=== PATIENT | female | born 1990 | race Caucasian/White ===

== ENCOUNTER 2017-09-23 12:31 | Emergency (ER) | payer BC, MEDICAID ==
[~2017-09-23] VITALS: Ht 165.1 cm; Wt 72.6 kg
[2017-09-23] MEDS ORDERED: NS IV 1000 ML 1,000 ML ONE (12:36)
[2017-09-23] MEDS ORDERED: ONDANSETRON 4 MG/2 ML (SDV) Z0FRAN ONE (12:36)
[2017-09-23] MEDS ORDERED: NS IV 1000 ML 1,000 ML IV STA (12:37)
[2017-09-23] MEDS ORDERED: ONDANSETRON 4 MG/2 ML (SDV) Z0FRAN IVP ONE (12:45)
[2017-09-23 12:54] LABS: BASOPHILS % (AUTO) 0 % (0-10); EOSINOPHILS % (AUTO) 0 % (0-10); HEMATOCRIT 45 % (35-52); HEMOGLOBIN 15.6 G/DL (11.5-16.0); LYMPHOCYTES # (AUTO) 1.3 X 10^3 (1.0-4.0); LYMPHOCYTES % (AUTO) 13 % (12-44); MEAN CORPUSCULAR HEMOGLOBIN 30 PG (25-34); MEAN CORPUSCULAR HGB CONC 35 G/DL (32-36); MEAN CORPUSCULAR VOLUME 87 FL (80-99); MEAN PLATELET VOLUME 10.4 FL (7.4-10.4); MONOCYTES # (AUTO) 0.5 X 10^3 (0.0-1.0); MONOCYTES % (AUTO) 5 % (0-12); NEUTROPHILS # (AUTO) 8.2 X 10^3 (1.8-7.8); NEUTROPHILS % (AUTO) 81 % (42-75); PLATELET COUNT 243 10^3/uL (130-400); RED BLOOD COUNT 5.15 10^6/uL (4.35-5.85); RED CELL DISTRIBUTION WIDTH 12.6 % (10.0-14.5); WHITE BLOOD COUNT 10.1 10^3/uL (4.3-11.0)
[2017-09-23 13:08] LABS: ALANINE AMINOTRANSFERASE 20 U/L (0-55); ALBUMIN 4.7 GM/DL (3.2-4.5); ALKALINE PHOSPHATASE 65 U/L (40-136); BILIRUBIN,TOTAL 1.1 MG/DL (0.1-1.0); BUN/CREATININE RATIO 11; CALCIUM 9.8 MG/DL (8.5-10.1); CARBON DIOXIDE 16 MMOL/L (21-32); CHLORIDE 108 MMOL/L (98-107); CREATININE SERUM 1.04 MG/DL (0.60-1.30); GFR ESTIMATED > 60; GLUCOSE 134 MG/DL (70-105); POTASSIUM 3.1 MMOL/L (3.6-5.0); SODIUM 139 MMOL/L (135-145); TOTAL PROTEIN 7.6 GM/DL (6.4-8.2)
[2017-09-23] MEDS ORDERED: PROMETHAZINE INJ 25 MG/ML (PHENERGAN) AMP IVP STA (13:14)
[2017-09-23] MEDS ORDERED: KETOROLAC 30 MG/ML VIAL IVP STA (13:14)
[2017-09-23] MEDS ORDERED: diphenhydrAMINE 50 MG/ML INJ (BENADRYL) IV ONE (13:15)
[2017-09-23] MEDS ORDERED: LACTATED RINGERS 1,000 ML IV ONE (13:17)
--- NOTE | 2017-09-23 13:22 | ED Headache ---
General Chief Complaint: Head/Cervical Problems Stated Complaint: VOMITING,WHALEN/DEHYDRATED Nursing Triage Note: PT TO RM 10 PER WHEELCHAIR FROM CAR BY STAFF. PT STATED SHE HAD A SPINAL TAP ON FRIDAY AND HAS HAD A WHALEN, NAUSEA, VOMITTING SINCE. Nursing Sepsis Screen: No Definite Risk Source: patient, family Exam Limitations: no limitations History of Present Illness Date Seen by Provider: Sep 23, 2017 Time Seen by Provider: 12:38 Initial Comments Here with complaint of headache after getting spinal tap last Friday. States the headache started to his afterwards and has had it since. This is associated with nausea and vomiting. She was able to eat some last night but otherwise not eating well. Has not had anything to drink today due to nausea, vomiting and pain. She had talked with the doctors to have set her up for blood patch tomorrow but she states that she couldn't make it. They instructed her to come here for evaluation. She has been unable to take her migraine medicine due to the nausea and vomiting. Spinal tap was Test for MS. Timing/Duration: constant, other (4) Severity/Quality: moderate, severe, constant, pressure, throbbing Location: global Prior Headaches/Recent Trauma: occasional headaches Modifying Factors: worse with exposure to light, improves with rest Associated Symptoms: No confusion, No fever/chills, No loss of consciousness, nausea/vomiting, No nasal congestion, No nasal drainage, No numbness in legs/ feet, No seizures, No stiff neck, No vision changes, No weakness Allergies and Home Medications Allergies Coded Allergies: hydrocodone (Verified Allergy, Unknown, 09/23/17) sulfamethoxazole (Verified Allergy, Unknown, 09/23/17) trimethoprim (Verified Allergy, Unknown, 09/23/17) Home Medications Ondansetron 4 Mg Tab.rapdis, 4 MG PO Q6H PRN for NAUSEA/VOMITING Prescribed by: BRETT CHIN on 09/23/17 1527 Patient Home Medication List Home Medication List Reviewed: Yes Constitutional: see HPI, No chills, No fever Eyes: See HPI, Denies Blurred Vision, Pain Ears, Nose, Mouth, Throat: no symptoms reported Respiratory: no symptoms reported Cardiovascular: no symptoms reported Gastrointestinal: No abdominal pain, nausea, vomiting Genitourinary: no symptoms reported Musculoskeletal: see HPI, No back pain, No muscle pain Skin: No change in color, No lesions Psychiatric/Neurological: See HPI, Headache, Denies Weakness All Other Systems Reviewed Negative Unless Noted: Yes Past Dwvgiuq-Viiyfi-Vgqgxq Hx Patient Social History Alcohol Use: Denies Use Recreational Drug Use: No Smoking Status: Never a Smoker 2nd Hand Smoke Exposure: No Recent Foreign Travel: No Contact w/Someone Who Travel: No Recent Infectious Disease Expo: No Recent Hopitalizations: No Physical Abuse: No Sexual Abuse: No Seasonal Allergies Seasonal Allergies: No Surgeries History of Surgeries: No Respiratory History of Respiratory Disorde: No Cardiovascular History of Cardiac Disorders: No Neurological History of Neurological Disord: No Reproductive System : No (DEPO SHOT) Genitourinary History of Genitourinary Disor: No Gastrointestinal History of Gastrointestinal Di: No Musculoskeletal History of Musculoskeletal Dis: No Endocrine History of Endocrine Disorders: No HEENT History of HEENT Disorders: No Cancer History of Cancer: No Psychosocial History of Psychiatric Problem: No Suicide Risk Score: 0 Integumentary History of Skin or Integumenta: No Blood Transfusions History of Blood Disorders: No Reviewed Nursing Assessment Reviewed/Agree w Nursing PMH: Yes Family Medical History Significant Family History: No Pertinent Family Hx Physical Exam Vital Signs Vital Signs - First Documented 09/23/17 12:35 Temp 96.8 Pulse 111 Resp 22 B/P (MAP) 129/86 (100) Pulse Ox 99 O2 Delivery Room Air Capillary Refill : Less Than 3 Seconds General Appearance: WD/WN, no apparent distress HEENT: PERRL/EOMI, pharynx normal Neck: full range of motion, supple Cardiovascular: regular rate, rhythm, no murmur Respiratory: lungs clear, normal breath sounds Gastrointestinal: non tender, soft Back: normal inspection, no CVA tenderness, no vertebral tenderness Extremities: non-tender, normal inspection Psychiatric: alert, oriented x 3 Crainal Nerves: normal hearing, normal speech, PERRL Motor/Sensory: no motor deficit, no sensory deficit Skin: normal color, warm/dry Progress/Results/Core Measures Results/Orders Lab Results Laboratory Tests Test 09/23/17 12:35 09/23/17 15:12 Range/Units White Blood Count 10.1 4.3-11.0 10^3/uL Red Blood Count 5.15 4.35-5.85 10^6/uL Hemoglobin 15.6 11.5-16.0 G/DL Hematocrit 45 35-52 % Mean Corpuscular Volume 87 80-99 FL Mean Corpuscular Hemoglobin 30 25-34 PG Mean Corpuscular Hemoglobin Concent 35 32-36 G/DL Red Cell Distribution Width 12.6 10.0-14.5 % Platelet Count 243 130-400 10^3/uL Mean Platelet Volume 10.4 7.4-10.4 FL Neutrophils (%) (Auto) 81 H 42-75 % Lymphocytes (%) (Auto) 13 12-44 % Monocytes (%) (Auto) 5 0-12 % Eosinophils (%) (Auto) 0 0-10 % Basophils (%) (Auto) 0 0-10 % Neutrophils # (Auto) 8.2 H 1.8-7.8 X 10^3 Lymphocytes # (Auto) 1.3 1.0-4.0 X 10^3 Monocytes # (Auto) 0.5 0.0-1.0 X 10^3 Eosinophils # (Auto) 0.0 0.0-0.3 10^3/uL Basophils # (Auto) 0.0 0.0-0.1 10^3/uL Sodium Level 139 135-145 MMOL/L Potassium Level 3.1 L 3.6-5.0 MMOL/L Chloride Level 108 H 98-107 MMOL/L Carbon Dioxide Level 16 L 21-32 MMOL/L Anion Gap 15 H 5-14 MMOL/L Blood Urea Nitrogen 11 7-18 MG/DL Creatinine 1.04 0.60-1.30 MG/DL Estimat Glomerular Filtration Rate > 60 BUN/Creatinine Ratio 11 Glucose Level 134 H 70-105 MG/DL Calcium Level 9.8 8.5-10.1 MG/DL Total Bilirubin 1.1 H 0.1-1.0 MG/DL Aspartate Amino Transf (AST/SGOT) 21 5-34 U/L Alanine Aminotransferase (ALT/SGPT) 20 0-55 U/L Alkaline Phosphatase 65 40-136 U/L Total Protein 7.6 6.4-8.2 GM/DL Albumin 4.7 H 3.2-4.5 GM/DL Serum Test, Qualitative NEGATIVE NEGATIVE Urine Color YELLOW Urine Clarity SLIGHTLY CLOUDY Urine pH 8 5-9 Urine Specific [place] 1.010 L 1.016-1.022 Urine Protein NEGATIVE NEGATIVE Urine Glucose (UA) NEGATIVE NEGATIVE Urine Ketones 3+ H NEGATIVE Urine Nitrite NEGATIVE NEGATIVE Urine Bilirubin NEGATIVE NEGATIVE Urine Urobilinogen NORMAL NORMAL MG/DL Urine Leukocyte Esterase 2+ H NEGATIVE Urine RBC (Auto) 4+ H NEGATIVE Urine RBC NONE /HPF Urine WBC 2-5 /HPF Urine Squamous Epithelial Cells 25-50 H /HPF Urine Crystals NONE /LPF Urine Bacteria MODERATE H /HPF Urine Casts NONE /LPF Urine Mucus NEGATIVE /LPF Urine Culture Indicated NO My Orders Orders - BRETT CHIN MD Ondansetron Injection (Zofran Injectio (09/23/17 12:45) Ns Iv 1000 Ml (Sodium Chloride 0.9%) (09/23/17 12:37) Saline Lock/Iv-Start (09/23/17 12:37) Ondansetron Injection (Zofran Injectio (09/23/17 12:36) Ns Iv 1000 Ml (Sodium Chloride 0.9%) (09/23/17 12:36) Cbc With Automated Diff (09/23/17 12:38) Comprehensive Metabolic Panel (09/23/17 12:38) Ua Culture If Indicated (09/23/17 12:38) Hcg,Qualitative Serum (09/23/17 12:38) Ketorolac Injection (Toradol Injection) (09/23/17 13:14) Promethazine Injection (Phenergan Injec (09/23/17 13:14) Diphenhydramine Injection (Benadryl Inje (09/23/17 13:15) Saline Lock/Iv-Start (09/23/17 13:17) Lactated Ringers (Lr 1000 Ml Iv Solution (09/23/17 13:17) Anesthesia Consult (09/23/17 14:26) Medications Given in ED Current Medications Medications Dose Ordered Sig/Adele Route Start Time Stop Time Status Last Admin Dose Admin Diphenhydramine HCl 25 mg ONCE ONCE IV 09/23/17 13:15 09/23/17 13:18 DC 09/23/17 13:45 25 MG Lactated Ringer's 1,000 ml @ 0 mls/hr Q0M ONCE IV 09/23/17 13:17 09/23/17 13:18 DC 09/23/17 13:21 1,000 MLS/HR Ondansetron HCl 4 mg ONCE ONCE IVP 09/23/17 12:45 09/23/17 12:49 DC 09/23/17 12:43 4 MG Vital Signs/I&O Vital Sign - Last 12Hours 09/23/17 12:35 Temp 96.8 Pulse 111 Resp 22 B/P (MAP) 129/86 (100) Pulse Ox 99 O2 Delivery Room Air Blood Pressure Mean: 100 Progress Note : Progress Note Seen and evaluated. IV, labs, UA, normal saline 1 L bolus and Zofran 4 mg IV. I did discuss the case with anesthesia and they will come down and evaluate for blood patch. Repeat normal saline 1 L bolus, Toradol 30 mg IV, Phenergan 12.5 mg IV and Benadryl 25 mg IV ordered. Monitor patient. 1430: Anesthesia did do blood patch. 1515: UA obtained. Patient feels a little better but still has some headache. Monitor patient. 1530: Tolerating by mouth fluids. Discharged home with return precautions. Patient verbalize understanding instructions and agreement with plan. Departure Impression Impression: Primary Impression: Spinal puncture headache Additional Impression: Dehydration, moderate Disposition: 01 HOME, SELF-CARE Condition: Improved Departure-Patient Inst. Decision time for Depature: 15:27 Referrals: NO,LOCAL PHYSICIAN (PCP/Family) Primary Care Physician Patient Instructions: Headache, Adult (DC) Add. Discharge Instructions: All discharge instructions reviewed with patient and/or family. Voiced understanding. Drink plenty of fluids. Take medications as directed. Follow-up with your DrKriss in a few days for recheck. Return for worse pain, fever, vomiting, weakness, breathing problems or other concerns as needed. Scripts Ondansetron (Ondansetron Odt) 4 Mg Tab.rapdis 4 MG PO Q6H Y for NAUSEA/VOMITING, #8 TAB 0 Refills Prov: BRETT CHIN MD 09/23/17 BRETT CHIN MD Sep 23, 2017 13:22
--- NOTE | 2017-09-23 14:53 | Anesthesia-Procedure Note ---
Procedures/Interventions Procedure Start/Stop/Diagnosis Date of Procedure: Sep 23, 2017 Start Time: 13:55 Referring Physician: Karen Preprocedural Diagnosis: Headache, Post-dural Puncture Headache Brief History Recent lumbar puncture. Stop Time: 14:24 Blood Patch Blood Patch Called to ED to evaluate a patient with possible post dural puncture headache. Patient had a recent diagnostic lumbar puncture at . Patient exhibiting classic signs of PDPH, headache that worsens with change to upright posture, light sensitivity, and headache worse in the temporal and frontal area. Spoke with patient about risk of epidural blood patch. Patient consented to procedure. Pt to sitting position. Hips and back palpated. L3/4 Interspace ID' d. Sterile Gloves applied. Beta prep x 3. Fenestrated drape placed. 1% Lidocaine 3 cc used for skin local. 17g Tuohy placed to 6cm with CLOR technique. ED RN joelle 20cc of blood using sterile procedure. All 20 cc of blood placed through Tuohy with no cramping or ear popping. Tolerated procedure well to supine position. Care to ED RN LOLA HAYNES CRNA Sep 23, 2017 14:53
[2017-09-23 15:24] LABS: BILIRUBIN,URINE NEGATIVE (NEGATIVE); CLARITY,URINE SLIGHTLY CLOUDY; COLOR,URINE YELLOW; GLUCOSE, URINE (UA) NEGATIVE (NEGATIVE); KETONES,URINE 3+ (NEGATIVE); LEUKOCYTE ESTERASE ,URINE 2+ (NEGATIVE); NITRITE,URINE NEGATIVE (NEGATIVE); PH,URINE 8 (5-9); PROTEIN,URINE NEGATIVE (NEGATIVE); UROBILINOGEN,URINE NORMAL (NORMAL)
[2017-09-23] MEDS ORDERED: ONDA4TAB11 PO (15:27)
[2017-09-23 15:36] LABS: BACTERIA,URINE MODERATE /HPF; SQUAMOUS EPITHELIAL CELL,UR 25-50 /HPF
[2017-09-23 16:14] VITALS: BP 116/84
== END 2017-09-23 16:14 | disposition home or self-care (01) ==
LOC: ER 12:34
DX: G97.1 Other reaction to spinal and lumbar puncture (principal); E86.0 Dehydration; G43.909 Migraine, unspecified, not intractable, without status migrainosus; Z88.5 Allergy status to narcotic agent; Z88.2 Allergy status to sulfonamides; Z88.3 Allergy status to other anti-infective agents
CPT/HCPCS: 36415; 80053; 81000; 84703; 85025; 96361; 96374; 96375

== ENCOUNTER 2018-01-01 19:43 | Emergency (ER) | payer BC, MEDICAID ==
[~2018-01-01] VITALS: Ht 167.6 cm; Wt 74.4 kg
[~2018-01-01 19:43] MED LIST: ONDA4TAB11 PO
--- NOTE | 2018-01-01 21:11 | ED Lower Extremity ---
General Chief Complaint: Lower Extremity Stated Complaint: L LEG BLOOD CLOTS/SWELLING Nursing Triage Note: pt presents to er with complaint of left calf blood clot. states she had surgery on friday done by roly. was seen at [facility] er yesterday, states "nurse practitioner did not do his job and give proper medicine". was instructed by pcp to come into er tonight due to worsening in symtpoms. Nursing Sepsis Screen: No Definite Risk Source: patient, old records Exam Limitations: no limitations History of Present Illness Date Seen by Provider: Jan 01, 2018 Time Seen by Provider: 20:54 Initial Comments Patient presents to ER by private conveyance with a chief complaint she's having pain and fever in her ankle. 6 days ago she had a scope on her left knee. She is afraid she might a had a blood clot so she called her primary care doctor at as well as the orthopedic surgeon Drs. Saldaña and they agreed that this a very good possibility and recommended that she get an ultrasound. She went up to to have her primary care doctor or the ultrasound outpatient but his clinic was already closed so he advised her to go to the ER. She's having some shortness of breath but she says is been going on for about 2 weeks now. She's not having a cough. She's had no fevers chills or nausea vomiting. She says the ultrasound was done at the ER and they found a clot in the left lower extremity and told her to take aspirin and go see her primary care doctor and he would manage it. She called her primary care doctor and he told her that he wanted her to go to the ER be reevaluated and gave her an order for Lovenox. She picked up the Lovenox and was supposed to start it this evening but she has not taken her first dose. Her breathing has not changed. 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 She is on Depo-Provera but does not smoke cigarettes. Allergies and Home Medications Allergies Coded Allergies: hydrocodone (Verified Allergy, Unknown, 09/23/17) sulfamethoxazole (Verified Allergy, Unknown, 09/23/17) trimethoprim (Verified Allergy, Unknown, 09/23/17) Home Medications Ondansetron 4 Mg Tab.rapdis, 4 MG PO Q6H PRN for NAUSEA/VOMITING Prescribed by: BRETT CHIN on 09/23/17 1527 Patient Home Medication List Home Medication List Reviewed: Yes Constitutional: No chills, No fever EENTM: No ear pain, No eye pain Respiratory: No cough, No phlegm; short of breath Cardiovascular: No chest pain, No edema Gastrointestinal: No abdominal pain, No constipation, No diarrhea Genitourinary: No discharge, No dysuria Past Ifrkyro-Mvrull-Tpcgis Hx Patient Social History Alcohol Use: Denies Use Recreational Drug Use: No Smoking Status: Never a Smoker 2nd Hand Smoke Exposure: No Recent Foreign Travel: No Contact w/Someone Who Travel: No Recent Infectious Disease Expo: No Recent Hopitalizations: No Immunizations Up To Date Tetanus Booster (TDap): Unknown PED Vaccines UTD: Yes Seasonal Allergies Seasonal Allergies: No Past Medical History Surgeries: No Respiratory: No Cardiac: No Neurological: No Genitourinary: No Gastrointestinal: No Musculoskeletal: No Endocrine: No HEENT: No Cancer: No Psychosocial: No Integumentary: No Blood Disorders: No Family Medical History No Pertinent Family Hx Physical Exam Vital Signs Vital Signs - First Documented 01/01/18 20:02 Temp 98.4 Pulse 76 Resp 16 B/P (MAP) 118/88 (98) Pulse Ox 97 O2 Delivery Room Air Capillary Refill : Less Than 3 Seconds General Appearance: WD/WN, no apparent distress HEENT: PERRL/EOMI, pharynx normal Cardiovascular: normal peripheral pulses, regular rate, rhythm, no edema Respiratory: chest non-tender, lungs clear, normal breath sounds, no respiratory distress, no accessory muscle use Gastrointestinal: non tender, soft Back: normal inspection, no vertebral tenderness Hips: bilateral hip non-tender, bilateral hip normal inspection, bilateral hip normal range of motion, bilateral hip no evidence of injury Legs: bilateral leg non-tender, bilateral leg normal inspection, bilateral leg normal range of motion, bilateral leg no evidence of injury Knees: right knee non-tender, right knee normal inspection, right knee normal range of motion, right knee no evidence of injury; left knee bone tenderness, left knee ecchymosis (mild), left knee joint effusion (scant), left knee pain, left knee soft tissue tenderness, left knee swelling Ankles: left ankle non-tender, left ankle normal inspection, left ankle normal range of motion, left ankle no evidence of injury, left ankle other (positive Homans sign and tenderness in the left calf) Neurologic/Psychiatric: alert, oriented x 3 Skin: normal color, warm/dry Progress/Results/Core Measures Results/Orders Lab Results Laboratory Tests Test 01/01/18 21:43 Range/Units White Blood Count 5.5 4.3-11.0 10^3/uL Red Blood Count 4.62 4.35-5.85 10^6/uL Hemoglobin 14.4 11.5-16.0 G/DL Hematocrit 42 35-52 % Mean Corpuscular Volume 91 80-99 FL Mean Corpuscular Hemoglobin 31 25-34 PG Mean Corpuscular Hemoglobin Concent 34 32-36 G/DL Red Cell Distribution Width 13.2 10.0-14.5 % Platelet Count 186 130-400 10^3/uL Mean Platelet Volume 10.7 H 7.4-10.4 FL Sodium Level 142 135-145 MMOL/L Potassium Level 3.8 3.6-5.0 MMOL/L Chloride Level 111 H 98-107 MMOL/L Carbon Dioxide Level 19 L 21-32 MMOL/L Anion Gap 12 5-14 MMOL/L Blood Urea Nitrogen 9 7-18 MG/DL Creatinine 1.03 0.60-1.30 MG/DL Estimat Glomerular Filtration Rate > 60 BUN/Creatinine Ratio 9 Glucose Level 91 70-105 MG/DL Calcium Level 9.3 8.5-10.1 MG/DL Total Bilirubin 0.6 0.1-1.0 MG/DL Aspartate Amino Transf (AST/SGOT) 23 5-34 U/L Alanine Aminotransferase (ALT/SGPT) 19 0-55 U/L Alkaline Phosphatase 61 40-136 U/L Total Protein 6.9 6.4-8.2 GM/DL Albumin 4.4 3.2-4.5 GM/DL Serum Test, Qualitative NEGATIVE NEGATIVE My Orders Orders - JIGNA GOMEZ Us Venous Lower Ext Lt (01/01/18 21:04) Cbc No Diff (01/01/18 21:04) Comprehensive Metabolic Panel (01/01/18 21:04) Hcg,Qualitative Serum (01/01/18 21:04) Oxycodone/Apap 5/325mg Tablet (Percocet (01/01/18 21:15) Medications Given in ED Current Medications Medications Dose Ordered Sig/Adele Route Start Time Stop Time Status Last Admin Dose Admin Oxycodone/ Acetaminophen 1 tab ONCE ONCE PO 01/01/18 21:15 01/01/18 21:16 DC 01/01/18 21:38 1 TAB Vital Signs/I&O 01/01/18 20:02 Temp 98.4 Pulse 76 Resp 16 B/P (MAP) 118/88 (98) Pulse Ox 97 O2 Delivery Room Air Blood Pressure Mean: 98 Progress Progress Note #1: Time: 21:11 Progress Note Don't have the imaging reports and the patient was not started on anticoagulants possible that this was a superficial clot that did not need treatment. We are just going to repeat an ultrasound of her left lower extremity and start her on appropriate anticoagulants if necessary. Progress Note #2: Time: 23:03 Progress Note The DVT is provoked from her recent scope probably. It's her first time. We'll put her on Xarelto. Her kidney function is perfectly okay presently to start this. Have her follow up outpatient in the next week or 2 with her primary care doctor. Diagnostic Imaging Diagonstic Imaging: Ultrasound Plain Films/CT/US/NM/MRI: leg (and left lower) Comments NAME: MONIKA SAINZ [facility] REC#: [id number] PHYSICIAN: JIGNA GOMEZ MD CC: DELMY YBARRA MD; JIGNA GOMEZ Page 1 of 1 RADIOLOGY REPORT VIA [facility], [facility]. [place], [place] CC: DELMY YBARAR MD; JIGNA GOMEZ Page 1 of 1 RADIOLOGY REPORT NAME: MONIKA SAINZ [facility] REC#: [id number] PT STATUS: REG ER : 1990 PHYSICIAN: JIGNA GOMEZ MD ADMIT DATE: 01/01/18/ER Signed Date of Exam: 01/01/18 US VENOUS LOWER EXT LT PROCEDURE: US left lower extremity venous. TECHNIQUE: Multiple real-time grayscale images were obtained over the left lower extremity in various projections. Additional duplex Doppler and color Doppler images were also obtained. INDICATION: Pain and swelling in left leg and ankle. FINDINGS: There is normal compression, flow and augmentation demonstrated within the common femoral vein through the popliteal vein. There does, however, appear to be some nonocclusive thrombus within the calf veins involving the peroneal and posterior tibial vein. IMPRESSION: Nonocclusive thrombus demonstrated within the left calf veins. There is no deep venous thrombosis evident from the common femoral vein through the popliteal vein. Dictated by: Dictated on workstation # [id number] Dict: 01/01/182148 Trans: 01/01/182205 Interpreted by: DELMY YBARRA MD Electronically signed by: DELMY YBARRA MD 01/01/182205 Reviewed: Reviewed by Me Departure Impression Primary Impression: Deep venous thrombosis of distal end of left lower extremity Qualified Codes: I82.4Z2 - Acute embolism and thrombosis of unspecified deep veins of left distal lower extremity Disposition: HOME, SELF-CARE Condition: Stable Departure-Patient Inst. Decision time for Depature: 23:04 Referrals: NO,LOCAL PHYSICIAN (PCP/Family) Primary Care Physician Patient Instructions: Deep Vein Thrombosis (Blood Clots in the Legs) (DC) Add. Discharge Instructions: You'll need to be on Xarelto for 3 months. Follow-up with your primary care doctor in the next couple weeks. Start 15 mg twice daily with food for 21 days followed by 20 mg once daily with food. All discharge instructions reviewed with patient and/or family. Voiced understanding. Scripts Oxycodone HCl/Acetaminophen (Oxycodone-Acetaminophen 5-325) 1 Each Tablet 1 EACH PO Q6H PRN for PAIN, #14 TAB 0 Refills Prov: JIGNA GMOEZ 01/01/18 Rivaroxaban (Xarelto Starter Pack) 1 Each Tab.ds.pk 1 EACH PO UD, #51 PKG 15mg by mouth twice daily x 21 days then 20mg by mouth daily Prov: JIGNA GOMEZ 01/01/18 JIGNA GOMEZ Jan 01, 2018 21:11
[2018-01-01] MEDS ORDERED: oxyCODONE/APAP 5/325MG (PERCOCET 5) TABLET PO ONE ×2 (21:15→23:30)
[2018-01-01 21:50] LABS: HEMOGLOBIN 14.4 G/DL (11.5-16.0); MEAN PLATELET VOLUME 10.7 FL (7.4-10.4); RED BLOOD COUNT 4.62 10^6/uL (4.35-5.85); RED CELL DISTRIBUTION WIDTH 13.2 % (10.0-14.5); WHITE BLOOD COUNT 5.5 10^3/uL (4.3-11.0)
--- NOTE | 2018-01-01 21:59 | Diagnostic Imaging Report ---
PROCEDURE: US left lower extremity venous. TECHNIQUE: Multiple real-time grayscale images were obtained over the left lower extremity in various projections. Additional duplex Doppler and color Doppler images were also obtained. INDICATION: Pain and swelling in left leg and ankle. FINDINGS: There is normal compression, flow and augmentation demonstrated within the common femoral vein through the popliteal vein. There does, however, appear to be some nonocclusive thrombus within the calf veins involving the peroneal and posterior tibial vein. IMPRESSION: Nonocclusive thrombus demonstrated within the left calf veins. There is no deep venous thrombosis evident from the common femoral vein through the popliteal vein. Dictated by: Dictated on workstation # [id number]
[2018-01-01 22:08] LABS: ALANINE AMINOTRANSFERASE 19 U/L (0-55); ALBUMIN 4.4 GM/DL (3.2-4.5); ALKALINE PHOSPHATASE 61 U/L (40-136); BILIRUBIN,TOTAL 0.6 MG/DL (0.1-1.0); BUN/CREATININE RATIO 9; CALCIUM 9.3 MG/DL (8.5-10.1); CARBON DIOXIDE 19 MMOL/L (21-32); CHLORIDE 111 MMOL/L (98-107); CREATININE SERUM 1.03 MG/DL (0.60-1.30); GFR ESTIMATED > 60; GLUCOSE 91 MG/DL (70-105); POTASSIUM 3.8 MMOL/L (3.6-5.0); SODIUM 142 MMOL/L (135-145); TOTAL PROTEIN 6.9 GM/DL (6.4-8.2)
[2018-01-01] MEDS ORDERED: OXYC-471 PO (23:17)
[2018-01-01] MEDS ORDERED: RIVA1TAB PO (23:17)
[2018-01-02 00:10] VITALS: BP 118/88
== END 2018-01-02 00:10 | disposition home or self-care (01) ==
LOC: EDUNIT# 19:43 → ER 19:44
DX: I82.4Z2 Acute embolism and thrombosis of unspecified deep veins of left distal lower extremity (principal); Z88.1 Allergy status to other antibiotic agents; Z88.2 Allergy status to sulfonamides; Z88.5 Allergy status to narcotic agent
CPT/HCPCS: 36415; 80053; 84703; 85027

== ENCOUNTER 2018-01-05 19:53 | Emergency (ER) | payer BC, MEDICAID ==
[~2018-01-05] VITALS: Ht 167.6 cm; Wt 74.4 kg
[~2018-01-05 19:53] MED LIST changes: +OXYC-471 PO; +RIVA1TAB PO
[2018-01-05] MEDS ORDERED: TOPI25TA10 (20:32)
[2018-01-05] MEDS ORDERED: ENOX80DI7 (20:32)
--- NOTE | 2018-01-05 20:42 | ED Chest Pain ---
General Chief Complaint: Chest Wall/Rib Pain Stated Complaint: BLOOD CLOTS/SOB/CP/DRY COUGH Nursing Triage Note: Patient reports having been diagnosed with blood clots in L leg last week. patient reports that she has developed in blood clots in lungs. patient reports that she is on lovenox injections. patient reports was evaluated by PCP this morning and presented these complaints. Patient states that she is now getting SOA with exertion. Nursing Sepsis Screen: No Definite Risk Source: patient Exam Limitations: no limitations History of Present Illness Date Seen by Provider: Jan 05, 2018 Time Seen by Provider: 20:37 Initial Comments Patient presents to the ER by private conveyance with a chief complaint for the last day she's been having some chest pressure in her anterior chest worse on deep inspiration and a little bit of feeling of shortness of breath whenever she exerts herself. She's had no cough fevers or chills nausea or vomiting. She has a history of deep vein thrombosis discovered a couple days ago she was started on Lovenox. After 2 weeks of Lovenox is going to switch to Xarelto. She saw her primary care doctor earlier today and they told her that there is no further workup needed. Her however became concerned and wanted her to come and get checked out because she kept him being so short of breath. She says she's been using the Lovenox on schedule. Allergies and Home Medications Allergies Coded Allergies: hydrocodone (Verified Allergy, Unknown, 09/23/17) sulfamethoxazole (Verified Allergy, Unknown, 09/23/17) trimethoprim (Verified Allergy, Unknown, 09/23/17) Home Medications Ondansetron 4 Mg Tab.rapdis, 4 MG PO Q6H PRN for NAUSEA/VOMITING Prescribed by: BRETT CHIN on 09/23/17 1527 Oxycodone HCl/Acetaminophen 1 Each Tablet, 1 EACH PO Q6H PRN for PAIN Prescribed by: JIGNA GOMEZ on 01/01/182316 Rivaroxaban 1 Each Tab.ds.pk, 1 EACH PO UD 15mg by mouth twice daily x 21 days then 20mg by mouth daily Prescribed by: JIGNA GOMEZ on 01/01/182316 Patient Home Medication List Home Medication List Reviewed: Yes Review of Systems Constitutional: No chills, No diaphoresis, No fever, No malaise EENTM: No Blurred Vision, No Double Vision Respiratory: Denies Cough; Shortness of Air, SOA With Exertion Cardiovascular: Denies Chest Pain, Denies Edema, Denies Lightheadedness, Denies Palpitations, Denies Syncope Gastrointestinal: Denies Abdomen Distended, Denies Abdominal Pain Genitourinary: Denies Burning, Denies Discharge Musculoskeletal: No back pain, No joint pain Skin: No pruritus, No rash Past Gbodunt-Molfzr-Jmnegq Hx Patient Social History Alcohol Use: Denies Use Recreational Drug Use: No 2nd Hand Smoke Exposure: No Recent Foreign Travel: No Contact w/Someone Who Travel: No Recent Infectious Disease Expo: No Recent Hopitalizations: No Immunizations Up To Date Tetanus Booster (TDap): Unknown PED Vaccines UTD: Yes Seasonal Allergies Seasonal Allergies: No Past Medical History Surgeries: Yes (L knee scope) Gallbladder, Orthopedic Respiratory: No Cardiac: Yes Deep Vein Thrombosis Neurological: No Genitourinary: No Gastrointestinal: No Musculoskeletal: Yes Chronic Back Pain Endocrine: No HEENT: No Cancer: No Psychosocial: No Integumentary: No Blood Disorders: No Family Medical History No Pertinent Family Hx Physical Exam Vital Signs Vital Signs - First Documented 01/05/18 20:25 Temp 98.2 Pulse 90 Resp 18 B/P (MAP) 108/87 (94) Pulse Ox 100 Capillary Refill : Less Than 3 Seconds General Appearance: No Apparent Distress, WD/WN HEENT: PERRL/EOMI, Pharynx Normal Neck: Full Range of Motion, Non Tender, Supple Respiratory: Lungs Clear, Normal Breath Sounds, No Accessory Muscle Use, No Respiratory Distress, Other (anterior chest wall tender to palpation) Cardiovascular: Regular Rate, Rhythm, No Murmur, Normal Peripheral Pulses Gastrointestinal: Normal Bowel Sounds, Non Tender, Soft Rectal: Other (clotted blood, copious amount at the rectum without overt external hemorrhoids, fissure. Blood is bright red) Extremity: Normal Capillary Refill, Normal Inspection Neurologic/Psychiatric: Alert, Oriented x3 Skin: Normal Color, Warm/Dry Progress/Results/Core Measures Results/Orders Lab Results Laboratory Tests Test 01/05/18 20:40 Range/Units White Blood Count 5.5 4.3-11.0 10^3/uL Red Blood Count 4.55 4.35-5.85 10^6/uL Hemoglobin 14.1 11.5-16.0 G/DL Hematocrit 41 35-52 % Mean Corpuscular Volume 91 80-99 FL Mean Corpuscular Hemoglobin 31 25-34 PG Mean Corpuscular Hemoglobin Concent 34 32-36 G/DL Red Cell Distribution Width 12.8 10.0-14.5 % Platelet Count 191 130-400 10^3/uL Mean Platelet Volume 10.7 H 7.4-10.4 FL Neutrophils (%) (Auto) 45 42-75 % Lymphocytes (%) (Auto) 46 H 12-44 % Monocytes (%) (Auto) 7 0-12 % Eosinophils (%) (Auto) 1 0-10 % Basophils (%) (Auto) 1 0-10 % Neutrophils # (Auto) 2.5 1.8-7.8 X 10^3 Lymphocytes # (Auto) 2.5 1.0-4.0 X 10^3 Monocytes # (Auto) 0.4 0.0-1.0 X 10^3 Eosinophils # (Auto) 0.1 0.0-0.3 10^3/uL Basophils # (Auto) 0.1 0.0-0.1 10^3/uL Sodium Level 140 135-145 MMOL/L Potassium Level 3.6 3.6-5.0 MMOL/L Chloride Level 110 H 98-107 MMOL/L Carbon Dioxide Level 19 L 21-32 MMOL/L Anion Gap 11 5-14 MMOL/L Blood Urea Nitrogen 9 7-18 MG/DL Creatinine 1.06 0.60-1.30 MG/DL Estimat Glomerular Filtration Rate > 60 BUN/Creatinine Ratio 8 Glucose Level 89 70-105 MG/DL Calcium Level 9.3 8.5-10.1 MG/DL Total Bilirubin 0.6 0.1-1.0 MG/DL Aspartate Amino Transf (AST/SGOT) 46 H 5-34 U/L Alanine Aminotransferase (ALT/SGPT) 37 0-55 U/L Alkaline Phosphatase 52 40-136 U/L Troponin I < 0.30 <0.30 NG/ML C-Reactive Protein High Sensitivity 0.26 0.00-0.50 MG/DL Total Protein 6.9 6.4-8.2 GM/DL Albumin 4.5 3.2-4.5 GM/DL My Orders Orders - JIGNA GOMEZ Cbc With Automated Diff (01/05/18 20:32) Comprehensive Metabolic Panel (01/05/18 20:32) Hs C Reactive Protein (01/05/18 20:32) Chest Pa/Lat (2 View) (01/05/18 20:32) Ekg Tracing (01/05/18 20:32) Troponin I (01/05/18 20:32) Ketorolac Injection (Toradol Injection) (01/05/18 20:45) Medications Given in ED Current Medications Medications Dose Ordered Sig/Adele Route Start Time Stop Time Status Last Admin Dose Admin Ketorolac Tromethamine 30 mg ONCE ONCE IM 01/05/18 20:45 01/05/18 20:46 DC 01/05/18 20:48 30 MG Vital Signs/I&O 01/05/18 20:25 Temp 98.2 Pulse 90 Resp 18 B/P (MAP) 108/87 (94) Pulse Ox 100 Blood Pressure Mean: 94 Progress Progress Note #1: Time: 20:44 Progress Note The patient is already on low molecular weight heparin which is appropriate treatment even if she were developing pulmonary emboli. We have discussed with parents reasonable to work her up for possible bronchitis versus pneumonia but her chest wall pain is reproducible by palpation. We'll get an EKG and troponin to rule out any cardiac strain. Her vital signs are normal with a heart rate in the 70s at rest. Her oxygen sat is 100% on room air at rest. Very possible that before she was started on anticoagulants she had developed clots in the pulmonary vascular system however treatment will not change even if we see them because she is otherwise stable. We have discussed with her if she becomes unstable with worsening shortness of breath or chest pain set of progressively getting better over the next several days or weeks and she should return to the ER for further workup. The patient is in agreement with this plan. Two-view chest x-ray, EKG, troponin, blood draw. Progress Note #2: Time: 21:46 Progress Note The patient's been resting well with good oxygen sats 100% on room air at rest. Heart rate still in the 70s. Her pain is reducible on pressing her chest wall so we'll recommend Tylenol and Lortabs. Heating pads. Return precautions. Initial ECG Impression Date: Jan 05, 2018 Initial ECG Impression Time: 20:33 Initial ECG Rate: 75 Initial ECG Rhythm: Normal Sinus Initial ECG Intervals: Normal Initial ECG Impression: Normal, Nonspecific Changes Initial ECG Comparisson: No Previous ECG Available Comment No ST elevation or depression. No evidence of strain pattern. Diagnostic Imaging Diagonstic Imaging: Xray Plain Films/CT/US/NM/MRI: chest (2v) Comments NAME: MONIKA SAINZ [facility] REC#: [id number] PHYSICIAN: JIGNA GOMEZ MD CC: LISA MCKAY MD; JIGNA GOMEZ Page 1 of 1 RADIOLOGY REPORT VIA [facility]. [place], [place] CC: LISA MCKAY MD; JIGNA GOMEZ Page 1 of 1 RADIOLOGY REPORT NAME: MONIKA SAINZ [facility] REC#: [id number] PT STATUS: REG ER : 1990 PHYSICIAN: JIGNA GOMEZ MD ADMIT DATE: 01/05/18/ER Signed Date of Exam: 01/05/18 CHEST PA/LAT (2 VIEW) CHEST PA/LAT (2 VIEW) Indication: Cough. Comparison: None available. Findings: No focal pneumonic consolidation, pleural effusion or pneumothorax. Normal heart size and pulmonary vasculature. Impression: No acute cardiopulmonary process. Dictated by: Dictated on workstation # [id number] Dict: 01/05/182105 Trans: 01/05/182105 Interpreted by: LISA MCKAY MD Electronically signed by: LISA CMKAY MD 01/05/182105 Reviewed: Reviewed by Me Departure Impression Primary Impression: Chest wall pain Additional Impression: DVT (deep venous thrombosis) Qualified Codes: I82.409 - Acute embolism and thrombosis of unspecified deep veins of unspecified lower extremity Disposition: 01 HOME, SELF-CARE Condition: Stable Departure-Patient Inst. Decision time for Depature: 21:47 Referrals: NO,LOCAL PHYSICIAN (PCP) Primary Care Physician Patient Instructions: Chest Pain That Is Not Caused by the Heart (DC) Add. Discharge Instructions: Use heating pads, distraction, the opiate pain medicine and Tylenol. Do not use Motrin, ibuprofen, Naprosyn or Aleve with your Xarelto. All discharge instructions reviewed with patient and/or family. Voiced understanding. JIGNA GOMEZ Jan 05, 2018 20:42
[2018-01-05] MEDS ORDERED: KETOROLAC 30 MG/ML VIAL IM ONE (20:45)
[2018-01-05 20:49] LABS: BASOPHILS # (AUTO) 0.1 10^3/uL (0.0-0.1); BASOPHILS % (AUTO) 1 % (0-10); EOSINOPHILS # (AUTO) 0.1 10^3/uL (0.0-0.3); EOSINOPHILS % (AUTO) 1 % (0-10); HEMATOCRIT 41 % (35-52); HEMOGLOBIN 14.1 G/DL (11.5-16.0); LYMPHOCYTES # (AUTO) 2.5 X 10^3 (1.0-4.0); LYMPHOCYTES % (AUTO) 46 % (12-44); MEAN CORPUSCULAR HEMOGLOBIN 31 PG (25-34); MEAN CORPUSCULAR HGB CONC 34 G/DL (32-36); MEAN CORPUSCULAR VOLUME 91 FL (80-99); MEAN PLATELET VOLUME 10.7 FL (7.4-10.4); MONOCYTES # (AUTO) 0.4 X 10^3 (0.0-1.0); MONOCYTES % (AUTO) 7 % (0-12); NEUTROPHILS # (AUTO) 2.5 X 10^3 (1.8-7.8); NEUTROPHILS % (AUTO) 45 % (42-75); PLATELET COUNT 191 10^3/uL (130-400); RED BLOOD COUNT 4.55 10^6/uL (4.35-5.85); RED CELL DISTRIBUTION WIDTH 12.8 % (10.0-14.5); WHITE BLOOD COUNT 5.5 10^3/uL (4.3-11.0)
--- NOTE | 2018-01-05 21:09 | Diagnostic Imaging Report ---
CHEST PA/LAT (2 VIEW) Indication: Cough. Comparison: None available. Findings: No focal pneumonic consolidation, pleural effusion or pneumothorax. Normal heart size and pulmonary vasculature. Impression: No acute cardiopulmonary process. Dictated by: Dictated on workstation # [id number]
[2018-01-05 21:10] LABS: ALANINE AMINOTRANSFERASE 37 U/L (0-55); ALBUMIN 4.5 GM/DL (3.2-4.5); ALKALINE PHOSPHATASE 52 U/L (40-136); BILIRUBIN,TOTAL 0.6 MG/DL (0.1-1.0); BUN/CREATININE RATIO 8; CALCIUM 9.3 MG/DL (8.5-10.1); CARBON DIOXIDE 19 MMOL/L (21-32); CHLORIDE 110 MMOL/L (98-107); CREATININE SERUM 1.06 MG/DL (0.60-1.30); GFR ESTIMATED > 60; GLUCOSE 89 MG/DL (70-105); POTASSIUM 3.6 MMOL/L (3.6-5.0); SODIUM 140 MMOL/L (135-145); TOTAL PROTEIN 6.9 GM/DL (6.4-8.2)
[2018-01-05 22:00] VITALS: BP 108/87
== END 2018-01-05 22:01 | disposition home or self-care (01) ==
LOC: EDUNIT# 19:53 → ER 19:54
DX: R07.89 Other chest pain (principal); I82.90 Acute embolism and thrombosis of unspecified vein; Z79.01 Long term (current) use of anticoagulants; Z98.890 Other specified postprocedural states; Z88.1 Allergy status to other antibiotic agents; Z88.2 Allergy status to sulfonamides; Z88.5 Allergy status to narcotic agent
CPT/HCPCS: 36415; 71046; 80053; 84484; 85025; 86141; 93005; 96372

== ENCOUNTER 2018-05-07 16:53 | Emergency (ER) | payer BC, MEDICAID ==
[~2018-05-07] VITALS: Ht 165.1 cm; Wt 71.2 kg
[~2018-05-07 16:53] MED LIST changes: +ENOX80DI7; +TOPI25TA10
--- OUTSIDE RECORDS SUMMARY | 2018-05-07 16:59 | XMS REPORT ---
Author Author BLANQUITA DAMON Organization [facility] Address Unknown Care Team Providers Care Starter Mechanic Name Role Phone NELSONBLANQUITA Unavailable PROBLEMS Type Condition ICD9-CM Code [id number] Code Onset Dates Condition Status SNOMED Code Problem Supervision of normal first V22.0 Active 822690518 Problem Generalized anxiety disorder F41.1 Active 70313054 Problem Depressive disorder, not elsewhere classified F32.9 Active 24968169 ALLERGIES No Information ENCOUNTERS Encounter Location Date Diagnosis [facility] [address] [address] November, Generalized anxiety disorder F41.1 and Depressive disorder, not elsewhere classified F32.9 [facility] [id number] [place] [phone] Oct, [facility] [id number] [place] [address] Oct, [facility] [address] [address] Jul, [facility] [address] [place] [address] Jul, [facility] [id number] [place] [address] Jun, [facility] [address], [place] [address] Jun, [facility] [id number] [place] [address] May, [facility] [address] [address] May, [facility] [id number] [address] May, [facility] [address] [facility] [id number] [address] May, [facility] [id number] [address] Apr, [facility] [address] [facility] [id number] [address] Feb, IMMUNIZATIONS No Known Immunizations SOCIAL HISTORY Never Assessed REASON FOR VISIT intake PLAN OF CARE Activity Details Follow Up next available Reason: VITAL SIGNS MEDICATIONS Unknown Medications RESULTS No Results PROCEDURES Procedure Date Ordered Result Body Site Psych diagnostic evaluation, new patient December 02, 2017 INSTRUCTIONS MEDICATIONS ADMINISTERED No Known Medications
--- OUTSIDE RECORDS SUMMARY | 2018-05-07 16:59 | XMS REPORT ---
Author Author ERIK JAIN [facility] Address [address] [place] [address] Care Team Providers Care Field Service Supervisor Name Role Phone ERIK JAIN Unavailable PROBLEMS Type Condition ICD9-CM Code ABL62-CY Code Onset Dates Condition Status SNOMED Code Problem Supervision of normal first V22.0 Active 643563687 Problem Generalized anxiety disorder F41.1 Active 75570404 Problem Depressive disorder, not elsewhere classified F32.9 Active 47979376 ALLERGIES Substance Reaction Event Type Date Status Hydrocodone-Acetaminophen Unknown Drug Allergy Mar, Active Bactrim Unknown Drug Allergy Mar, Active ENCOUNTERS Encounter Location Date Diagnosis [facility] IN [facility] [id number] [place] [phone] Mar, Acute nasopharyngitis J00 [facility] [address] [address] November, Generalized anxiety disorder F41.1 and Depressive disorder, not elsewhere classified F32.9 [facility] [id number] [place] [address] Oct, [facility] [id number] [place] [address] Oct, [facility] [id number] [place] [address] Jul, [facility] [address] [address] Jul, [facility] [id number] [place] [address] Jun, [facility] [address] [address] Jun, [facility] [address] [facility] [id number], [place] [address] May, [facility] [address] [facility] [id number], [place] [address] May, [facility] [address] [facility] [id number], [place] [address] May, [facility] [address] [facility] [id number], [place] [address] May, [facility] [address] [facility] [id number], [place] [address] Apr, [facility] [address] [facility] [id number], [place] [address] Feb, IMMUNIZATIONS No Known Immunizations SOCIAL HISTORY Never Assessed REASON FOR VISIT Sore throat, cough, runny nose, body aches and fever started a couple days ago JStrasserRYovani PLAN OF CARE Activity Details Follow Up prn Reason: VITAL SIGNS Height 64 in 2018-03-19 Weight 158.6 lbs 2018-03-19 Temperature 98.3 degrees Fahrenheit 2018-03-19 Heart Rate 100 bpm 2018-03-19 Respiratory Rate 22 2018-03-19 BMI 27.22 kg/m2 2018-03-19 Blood pressure systolic 110 mmHg 2018-03-19 Blood pressure diastolic 74 mmHg 2018-03-19 MEDICATIONS Medication Instructions Dosage Frequency Start Date End Date Duration Status Cymbalta 30 MG Orally Once a day 1 capsule 24h 30 day(s) Active Cymbalta 60 MG Orally Once a day 1 capsule 24h 30 day(s) Active Gabapentin 100 MG Orally Three times a day 2 capsule 8h Active Topamax 50 MG Orally Twice a day 1 tablet 12h 30 day(s) Active Topamax 25 MG Orally Twice a day 1 capsule 12h Active RESULTS No Results PROCEDURES No Known procedures INSTRUCTIONS MEDICATIONS ADMINISTERED No Known Medications MEDICAL (GENERAL) HISTORY Type Description Date Medical History Fabrys disease for 11 years, diagnosed 2 months ago Medical History decreaesd kidney function- sees a technology administrator Medical History 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
[2018-05-07 18:23] VITALS: BP_SYST 104; BP_SYST 106; BP_DIAS 65; BP_DIAS 75; BP_DIAS 79
[2018-05-07 18:23] LABS: BILIRUBIN,URINE NEGATIVE (NEGATIVE); CLARITY,URINE CLEAR; COLOR,URINE YELLOW; GLUCOSE, URINE (UA) NEGATIVE (NEGATIVE); KETONES,URINE NEGATIVE (NEGATIVE); LEUKOCYTE ESTERASE ,URINE NEGATIVE (NEGATIVE); NITRITE,URINE NEGATIVE (NEGATIVE); PH,URINE 7 (5-9); PROTEIN,URINE NEGATIVE (NEGATIVE); UROBILINOGEN,URINE NORMAL (NORMAL)
[2018-05-07 18:38] LABS: AMPHETAMINE SCREEN, URINE NEGATIVE (NEGATIVE); BARBITURATE SCREEN URINE NEGATIVE (NEGATIVE); BENZODIAZEPINES SCREEN URINE NEGATIVE (NEGATIVE); CANNABINOID SCREEN, URINE NEGATIVE (NEGATIVE); COCAINE SCREEN URINE NEGATIVE (NEGATIVE); METHADONE STAT NEGATIVE (NEGATIVE); METHAMPHETAMINE SCREEN URINE S NEGATIVE (NEGATIVE); OPIATE SCREEN URINE NEGATIVE (NEGATIVE); OXYCODONE STAT NEGATIVE (NEGATIVE); PROPOXYPHENE STAT NEGATIVE (NEGATIVE); TRICYCLIC ANTIDEPRESSANTS SCRE NEGATIVE (NEGATIVE)
[2018-05-07 18:47] LABS: BASOPHILS % (AUTO) 1 % (0-10); EOSINOPHILS # (AUTO) 0.1 10^3/uL (0.0-0.3); EOSINOPHILS % (AUTO) 1 % (0-10); HEMATOCRIT 40 % (35-52); HEMOGLOBIN 13.5 G/DL (11.5-16.0); LYMPHOCYTES # (AUTO) 2.3 X 10^3 (1.0-4.0); LYMPHOCYTES % (AUTO) 38 % (12-44); MEAN CORPUSCULAR HEMOGLOBIN 30 PG (25-34); MEAN CORPUSCULAR HGB CONC 34 G/DL (32-36); MEAN CORPUSCULAR VOLUME 90 FL (80-99); MEAN PLATELET VOLUME 10.2 FL (7.4-10.4); MONOCYTES # (AUTO) 0.3 X 10^3 (0.0-1.0); MONOCYTES % (AUTO) 5 % (0-12); NEUTROPHILS # (AUTO) 3.2 X 10^3 (1.8-7.8); NEUTROPHILS % (AUTO) 54 % (42-75); PLATELET COUNT 199 10^3/uL (130-400); RED BLOOD COUNT 4.46 10^6/uL (4.35-5.85); RED CELL DISTRIBUTION WIDTH 13.7 % (10.0-14.5); WHITE BLOOD COUNT 5.9 10^3/uL (4.3-11.0)
--- NOTE | 2018-05-07 18:51 | ED Syncope ---
General Chief Complaint: General Problems/Pain Stated Complaint: HAVING FAINTING SPELLS Nursing Triage Note: PT PRESENTS TO ER WITH COMPLAINT OF 4 SYNCOPLE EPISODES IN FIVE MINUTES. STATES HER EYES GO BLACK, SHE FEELS FUZZY AND DIZZY. SYMPTOMS STARTED AT 4 PM. Source of Information: Patient, Spouse Exam Limitations: No Limitations History of Present Illness Date Seen by Provider: May 07, 2018 Time Seen by Provider: 18:30 Initial Comments The patient presents to ER by private conveyance with her and chief complaint she's been having a lot of syncope for the past 6 months. She been worked up by her booth usher and he suspects that it is having some with her chronically low blood pressure and she may be having vagal attacks because they always occur when she transitioned from lying to standing or sitting to standing. She has a tilt table test ordered for next week. She also has a history of Fabry's disease, peripheral neuropathy. She's been having a cough for the last couple months but is nonproductive but not today. She's had no fevers chills runny nose cough and cold symptoms, nausea, diarrhea or constipation. She said today which worried her because she was getting a shower standing up and she had 2 syncopal episodes after getting out while standing up without transitioning from one position and neck she had 2 more syncopal episodes where she said that her vision went black but she did not lose consciousness nor did she fall. She caught herself and never struck any part of her body. She's having a headache and she says she has a history of migraines and she thinks the headache because of the near syncopal events. She also is having some pain on both sides of her chest that she associates with her asthma. She is being worked up by an asthma specialist to determine what needs to be done to treat her asthma. She has no wheezing and does not take any breathing treatments. She is not taking anything for her headache pain either. She does have a history of DVTs and is on 81 mg aspirin. She is on the Depo- Provera shot. She also takes Topamax, Cymbalta, aspirin, fentanyl, gabapentin, cyclobenzaprine. 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 She's had kidney dysfunction and had a kidney biopsy, knee surgeries and cholecystectomy. She denies being on a blood thinner. Allergies and Home Medications Allergies Coded Allergies: hydrocodone (Verified Allergy, Unknown, 09/23/17) sulfamethoxazole (Verified Allergy, Unknown, 09/23/17) trimethoprim (Verified Allergy, Unknown, 09/23/17) Home Medications Ondansetron 4 Mg Tab.rapdis, 4 MG PO Q6H PRN for NAUSEA/VOMITING Prescribed by: BRETT CHIN on 09/23/17 152 Oxycodone HCl/Acetaminophen 1 Each Tablet, 1 EACH PO Q6H PRN for PAIN Prescribed by: JIGNA GOMEZ on 01/01/182316 Rivaroxaban 1 Each Tab.ds.pk, 1 EACH PO UD 15mg by mouth twice daily x 21 days then 20mg by mouth daily Prescribed by: JIGNA GOMEZ on 01/01/182316 Patient Home Medication List Home Medication List Reviewed: Yes Review of Systems Constitutional: No chills, No diaphoresis, No fever EENTM: No hearing loss, No ear pain Respiratory: cough, short of breath Cardiovascular: chest pain; No edema, No Hx of Intervention, No palpitations; syncope (near) Gastrointestinal: No abdominal pain, No constipation, No diarrhea, No nausea, No vomiting Genitourinary: No discharge, No dysuria : No Control/STD Prophylaxis: Depo Provera Musculoskeletal: see HPI, back pain; No joint pain Past Faghplg-Aerpgp-Puwkto Hx Patient Social History Alcohol Use: Denies Use Recreational Drug Use: No Smoking Status: Never a Smoker 2nd Hand Smoke Exposure: No Recent Foreign Travel: No Contact w/Someone Who Travel: No Recent Infectious Disease Expo: No Recent Hopitalizations: No Immunizations Up To Date Tetanus Booster (TDap): Unknown PED Vaccines UTD: Yes Seasonal Allergies Seasonal Allergies: No Past Medical History Surgeries: Yes (L knee scope) Gallbladder, Orthopedic Respiratory: No Cardiac: Yes Deep Vein Thrombosis Neurological: No Genitourinary: No Gastrointestinal: No Musculoskeletal: Yes Chronic Back Pain Endocrine: No HEENT: No Cancer: No Psychosocial: No Integumentary: No Blood Disorders: No Family Medical History No Pertinent Family Hx Physical Exam Vital Signs Vital Signs - First Documented 05/07/18 17:23 Temp 98.0 Pulse 83 Resp 18 B/P (MAP) 111/77 (88) Pulse Ox 100 O2 Delivery Room Air Capillary Refill : Less Than 3 Seconds Height, Weight, BMI Height: 5'5.00" Weight: 157lbs. oz. [id number]; BMI Method:Stated General Appearance: No Apparent Distress, WD/WN HEENT: PERRL/EOMI, TMs Normal, Normal ENT Inspection, Pharynx Normal, Moist Mucous Membranes Neck: Full Range of Motion, Normal Inspection, Non Tender, Supple Cardiovascular: Regular Rate, Rhythm, No Edema, Normal Peripheral Pulses Respiratory: No Chest Non Tender; Normal Breath Sounds, No Accessory Muscle Use , No Respiratory Distress Gastrointestinal: Normal Bowel Sounds, Non Tender, Soft Extremities: Normal Capillary Refill, Normal Inspection, Non Tender, No Calf Tenderness, No Pedal Edema, Other (negative for Homans sign) Neurologic/Psychiatric: Alert, Oriented x3, No Motor/Sensory Deficits Cranial Nerves: Normal Hearing, Normal Speech, PERRL Coordination/Gait: Normal Gait Motor/Sensory: No Motor Deficit, No Sensory Deficit Skin: Normal Color, Warm/Dry Progress/Results/Core Measures Results/Orders Lab Results Laboratory Tests Test 05/07/18 17:50 05/07/18 18:40 Range/Units Urine Color YELLOW Urine Clarity CLEAR Urine pH 7 5-9 Urine Specific Jackson 1.010 L 1.016-1.022 Urine Protein NEGATIVE NEGATIVE Urine Glucose (UA) NEGATIVE NEGATIVE Urine Ketones NEGATIVE NEGATIVE Urine Nitrite NEGATIVE NEGATIVE Urine Bilirubin NEGATIVE NEGATIVE Urine Urobilinogen NORMAL NORMAL MG/DL Urine Leukocyte Esterase NEGATIVE NEGATIVE Urine RBC (Auto) NEGATIVE NEGATIVE Urine RBC NONE /HPF Urine WBC NONE /HPF Urine Squamous Epithelial Cells 5-10 /HPF Urine Crystals NONE /LPF Urine Bacteria NONE /HPF Urine Casts NONE /LPF Urine Mucus NEGATIVE /LPF Urine Culture Indicated NO Urine Opiates Screen NEGATIVE NEGATIVE Urine Oxycodone Screen NEGATIVE NEGATIVE Urine Methadone Screen NEGATIVE NEGATIVE Urine Propoxyphene Screen NEGATIVE NEGATIVE Urine Barbiturates Screen NEGATIVE NEGATIVE Ur Tricyclic Antidepressants Screen NEGATIVE NEGATIVE Urine Phencyclidine Screen NEGATIVE NEGATIVE Urine Amphetamines Screen NEGATIVE NEGATIVE Urine Methamphetamines Screen NEGATIVE NEGATIVE Urine Benzodiazepines Screen NEGATIVE NEGATIVE Urine Cocaine Screen NEGATIVE NEGATIVE Urine Cannabinoids Screen NEGATIVE NEGATIVE White Blood Count 5.9 4.3-11.0 10^3/uL Red Blood Count 4.46 4.35-5.85 10^6/uL Hemoglobin 13.5 11.5-16.0 G/DL Hematocrit 40 35-52 % Mean Corpuscular Volume 90 80-99 FL Mean Corpuscular Hemoglobin 30 25-34 PG Mean Corpuscular Hemoglobin Concent 34 32-36 G/DL Red Cell Distribution Width 13.7 10.0-14.5 % Platelet Count 199 130-400 10^3/uL Mean Platelet Volume 10.2 7.4-10.4 FL Neutrophils (%) (Auto) 54 42-75 % Lymphocytes (%) (Auto) 38 12-44 % Monocytes (%) (Auto) 5 0-12 % Eosinophils (%) (Auto) 1 0-10 % Basophils (%) (Auto) 1 0-10 % Neutrophils # (Auto) 3.2 1.8-7.8 X 10^3 Lymphocytes # (Auto) 2.3 1.0-4.0 X 10^3 Monocytes # (Auto) 0.3 0.0-1.0 X 10^3 Eosinophils # (Auto) 0.1 0.0-0.3 10^3/uL Basophils # (Auto) 0.0 0.0-0.1 10^3/uL D-Dimer 2.91 H 0.00-0.49 UG/ML Sodium Level 139 135-145 MMOL/L Potassium Level 3.5 L 3.6-5.0 MMOL/L Chloride Level 111 H 98-107 MMOL/L Carbon Dioxide Level 20 L 21-32 MMOL/L Anion Gap 8 5-14 MMOL/L Blood Urea Nitrogen 12 7-18 MG/DL Creatinine 0.94 0.60-1.30 MG/DL Estimat Glomerular Filtration Rate > 60 BUN/Creatinine Ratio 13 Glucose Level 87 70-105 MG/DL Calcium Level 9.1 8.5-10.1 MG/DL Corrected Calcium 8.9 8.5-10.1 MG/DL Total Bilirubin 0.5 0.1-1.0 MG/DL Aspartate Amino Transf (AST/SGOT) 12 5-34 U/L Alanine Aminotransferase (ALT/SGPT) 8 0-55 U/L Alkaline Phosphatase 54 40-136 U/L C-Reactive Protein High Sensitivity 0.23 0.00-0.50 MG/DL Total Protein 6.7 6.4-8.2 GM/DL Albumin 4.2 3.2-4.5 GM/DL Thyroid Stimulating Hormone (TSH) 1.08 0.35-4.94 UIU/ML Serum Test, Qualitative NEGATIVE NEGATIVE My Orders Orders - JIGNA GOMEZ Continuous Ekg Monitoring (05/07/18 18:08) Ekg Tracing (05/07/18 18:08) Orthostatic Vital Signs (Adult (05/07/18 18:08) Cbc With Automated Diff (05/07/18 18:08) Comprehensive Metabolic Panel (05/07/18 18:08) Hs C Reactive Protein (05/07/18 18:08) Drug Screen Stat (Urine) (05/07/18 18:08) Hcg,Qualitative Serum (05/07/18 18:08) Thyroid Stimulating Hormone (05/07/18 18:08) Ua Culture If Indicated (05/07/18 18:08) Saline Lock/Iv-Start (05/07/18 18:08) Chest Pa/Lat (2 View) (05/07/18 18:36) Fibrin Degradation Products (05/07/18 18:36) Vital Signs/I&O 05/07/18 05/07/18 17:23 18:23 Temp 98.0 Pulse 83 73 81 84 Resp 18 B/P (MAP) 111/77 (88) 106/65 (79) 104/75 (85) 106/79 (88) Pulse Ox 100 O2 Delivery Room Air Blood Pressure Mean: 88 Progress Progress Note #1: Time: 18:53 Progress Note The patient is a significant burden of disease but does not appear to be acutely ill this time. She's had 4 syncopal episodes within 5 minutes and this is concerned her. These episodes are not new to her. Did do some active and worked up outpatient by the booth usher and may be related to vasovagal or orthopneic changes. We'll get a set of orthostatic vital signs chest x-ray, EKG blood urine and offer her thousand grams Tylenol for her headache. She does not have any immediate clinical findings for infection that might be leading to this. She brought up the question of whether we should do a d-dimer because of her history of blood clots but she's not having any subjective or objective evidence of shortness of breath, hypoxia, tachycardia, cough presently. She says she's had a cough for the past few months but not in the last couple days and I have not heard her cough since she's been here. Her chest pain is reproducible on direct palpation of her chest wall. EKG initially unremarkable for any pathology. 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 Review of the ultrasound from December, demonstrated: Nonocclusive thrombus demonstrated within the left calf veins. There is no deep venous thrombosis evident from the common femoral vein through the popliteal vein. She was put on Xarelto but it was thought to be a provoked clot since it occurred 6 days after a knee scoped by Drs. Saldaña, orthopedic surgery. It was a superficial clot not a deep vein clot. At this time she does not need to be on anticoagulants by the history I have gathered since is no evidence of provocation and does not smoke and uses a progesterone only Depo-Provera shot and has no symptoms or clinical findings of DVT/PE I think we should look elsewhere for causes of her symptoms. Progress Note #2: Time: 20:01 Progress Note The patient seems to be low risk for pulmonary embolism and has no clinical or historical evidence for and the d-dimer is probably elevated secondary to the fact that it's a marker of inflammation and she has Fabry's which causes pro- inflammatory changes. We discussed this and more with the patient in great detail. We gave her counseling on how to prevent syncopal episodes by not locking her knees, standing up slowly, waiting for 10 seconds before taking off walking after sitting or lying for a long period. We have encouraged her to keep her outpatient workup for her syncopal episodes. Initial ECG Impression Date: May 07, 2018 Initial ECG Impression Time: 18:11 Initial ECG Rate: 74 Initial ECG Rhythm: Normal Sinus Initial ECG Intervals: Normal Initial ECG Impression: Normal Initial ECG Comparisson: Unchanged Comment No ST elevation or depression. Diagnostic Imaging Diagonstic Imaging: Xray Plain Films/CT/US/NM/MRI: chest (2v) Comments No acute cardiopulmonary processes noted. No cardiomegaly seen. NAME: MONIKA SAINZ REC#: [id number] PHYSICIAN: JIGNA GOMEZ MD CC: RIAN ALEGRIA MD; JIGNA GOMEZ Page 1 of 1 RADIOLOGY REPORT VIA [facility], [facility]. [place], [place] CC: RIAN ALEGRIA MD; JIGNA GOMEZ Page 1 of 1 RADIOLOGY REPORT NAME: MONIKA SAINZ [facility] REC#: [id number] PT STATUS: REG ER : 1990 PHYSICIAN: JIGNA GOMEZ MD ADMIT DATE: 05/07/18/ER Signed Date of Exam: 05/07/18 CHEST PA/LAT (2 VIEW) INDICATION: Chest pain, fainting spells. FINDINGS: Frontal and lateral views of the chest were compared to an exam from January 05. The lungs remain clear. The heart, mediastinum and pulmonary vascularity are normal. IMPRESSION: Normal chest. Dictated by: Dictated on workstation # [id number] Dict: 05/07/181858 Trans: 05/07/181911 Interpreted by: RIAN ALEGRIA MD Electronically signed by: RIAN ALEGRIA MD 05/07/181911 Reviewed: Reviewed by Me Departure Impression Primary Impression: Syncopal episodes Qualified Codes: R55 - Syncope and collapse Disposition: 01 HOME, SELF-CARE Condition: Stable Departure-Patient Inst. Decision time for Depature: 20:16 Referrals: NO,LOCAL PHYSICIAN (PCP/Family) Primary Care Physician Patient Instructions: Syncope (Fainting) (DC) Add. Discharge Instructions: Keep your follow-up appointments with your oncologist and booth usher to get the tilt table test done. All discharge instructions reviewed with patient and/ or family. Voiced understanding. JIGNA GOMEZ May 07, 2018 18:51
--- NOTE | 2018-05-07 19:02 | Diagnostic Imaging Report ---
INDICATION: Chest pain, fainting spells. FINDINGS: Frontal and lateral views of the chest were compared to an exam from January 05. The lungs remain clear. The heart, mediastinum and pulmonary vascularity are normal. IMPRESSION: Normal chest. Dictated by: Dictated on workstation # [id number]
[2018-05-07 19:06] LABS: ALANINE AMINOTRANSFERASE 8 U/L (0-55); ALBUMIN 4.2 GM/DL (3.2-4.5); ALKALINE PHOSPHATASE 54 U/L (40-136); BILIRUBIN,TOTAL 0.5 MG/DL (0.1-1.0); BUN/CREATININE RATIO 13; CALCIUM 9.1 MG/DL (8.5-10.1); CARBON DIOXIDE 20 MMOL/L (21-32); CHLORIDE 111 MMOL/L (98-107); CREATININE SERUM 0.94 MG/DL (0.60-1.30); GFR ESTIMATED > 60; GLUCOSE 87 MG/DL (70-105); POTASSIUM 3.5 MMOL/L (3.6-5.0); SODIUM 139 MMOL/L (135-145); TOTAL PROTEIN 6.7 GM/DL (6.4-8.2)
[2018-05-07] MEDS: ACETAMINOPHEN 500 MG TAB (TYLENOL) PO ONE (20:30)
[2018-05-07] MEDS: KETOROLAC 30 MG/ML VIAL IVP ONE (20:30)
[2018-05-07 20:34] VITALS: BP 106/79
== END 2018-05-07 20:34 | disposition home or self-care (01) ==
LOC: EDUNIT# 16:53 → ER 16:55
DX: R55 Syncope and collapse (principal); Z88.5 Allergy status to narcotic agent; Z88.2 Allergy status to sulfonamides; Z88.8 Allergy status to other drugs, medicaments and biological substances; Z79.01 Long term (current) use of anticoagulants; Z86.718 Personal history of other venous thrombosis and embolism; Z79.82 Long term (current) use of aspirin; Z87.448 Personal history of other diseases of urinary system; Z90.49 Acquired absence of other specified parts of digestive tract; Z98.890 Other specified postprocedural states
CPT/HCPCS: 36415; 71046; 80053; 80306; 81000; 84443; 84703; 85025; 85379; 86141; 93005; 96374

== ENCOUNTER 2018-07-15 23:00 | Emergency (ER) | payer BC, MEDICAID ==
[~2018-07-15] VITALS: Ht 165.1 cm; Wt 72.6 kg
--- OUTSIDE RECORDS SUMMARY | 2018-07-15 23:04 | XMS REPORT ---
Author Author Komal Yuen Brighton Organization [facility] Address [address] [place] [address] Care Team Providers Care Art Historian Name Role Phone Komal Yuen Brighton Unavailable PROBLEMS Type Condition ICD9-CM Code FOC81-XT Code Onset Dates Condition Status SNOMED Code Problem Fabry disease E75.21 Active [id number] ALLERGIES No Information ENCOUNTERS Encounter Location Date Diagnosis UNKNOWN May, [facility] [address] [place], [place] [phone] Mar, [facility] [address] [place], [place] [id number] Mar, Fabry disease E75.21 IMMUNIZATIONS No Known Immunizations SOCIAL HISTORY Never Assessed REASON FOR VISIT Review of Lab results PLAN OF CARE VITAL SIGNS MEDICATIONS Unknown Medications RESULTS No Results PROCEDURES No Known procedures INSTRUCTIONS MEDICATIONS ADMINISTERED No Known Medications
--- NOTE | 2018-07-15 23:20 | ED Headache ---
General Chief Complaint: Head/Cervical Problems Stated Complaint: HEADACHE Nursing Triage Note: Pt has had a headache for the past 8 days. Pt stated it is not like her normal chronic headaches. She stated it hurts in temples and neck, with chills and nausea. Pt has taken topamax, ibuprofren, drinking lots of water and caffiene. It is not working patient stated. She called her neurologist and he stated to come on in, because he can't prescribe anything, because of the pharmacy being closed. Nursing Sepsis Screen: No Definite Risk Source: patient History of Present Illness Date Seen by Provider: Jul 15, 2018 Time Seen by Provider: 23:15 Initial Comments C/O HEADACHE X 8 DAYS STATES "I HAVE CHRONIC MIGRAINES AND HEADACHES" STATES THIS HEADACHE "IS NOT LIKE MY REGULAR MIGRAINES" STATES HER TEMPLES ARE THROBBING AND THE BACK OF HER HEAD AND NECK ARE SORE RATES PAIN 8/10 STATES HERE NORMAL HEADACHES "ARE LIKE A MASK ONLY BEHIND MY EYES AND PUSHING OUT" AND STATES HER MIGRAINES ARE ON BOTH SIDES OF HER FOREHEAD STATES IT IS NOT WORSE WITH LIGHT OR NOISE + NAUSEA, NO VOMITING--WHICH IS NORMAL STATES HER VISION IS SLIGHTLY BLURRY--WHICH IS NORMAL NO DIZZINESS NO NEW PARESTHESIAS OR MOTOR DEFICITS ( PT HAS PERIPHERAL NEUROPATHY) NO URI OR SINUS SYMPTOMS NO RECENT ILLNESS OF ANY KIND STATES SHE HAS HAD CHILLS, HER TEMP WAS 99 AT HOME STATES SHE TOOK "IBUPROFEN 500 MG" EARLIER TODAY WITHOUT RELIEF. OTHERWISE SHE HAS NOT TAKEN ANYTHING EXCEPT HER REGULAR MEDICATIONS PT STATES SHE HAS BEEN DRINKING ALOT OF WATER AND COFFEE WITH CAFFEINE TODAY WITHOUT IMPROVEMENT HAS NOT SOUGHT CARE UNTIL TODAY SYMPTOMS NO DIFFERENT TODAY STATES SHE CALLED THE NEUROLOGIST HOSPITAL ACCOUNT MANAGER AT --PT STATES "HE SAID HE COULDN'T CALL ANYTHING IN BECAUSE THE PHARMACY WAS CLOSED" PT STATES SHE TAKES TOPAMAX, GABAPENTIN, CYMBALTA, FLEXERIL, AND LIDOCAINE PATCHES FOR HER CHRONIC HEADACHES WELL HER CHRONIC BACK PAIN "HERNIATED DISCS" PT STATES SHE ALSO HAS BEEN GETTING BOTOX INJECTIONS FOR HER HEADACHES--STATES HER LAST INJECTION WAS 06/26/18 STATES SHE HAS HAD THESE HEADACHES FOR 3 YEARS AND "FAILED 4 MEDICATIONS" SEES MULTIPLE SPECIALISTS AT FOR MULTIPLE ISSUES DOES NOT HAVE A PCP, OR SEE ANYONE HERE LOCALLY STATES HER NEXT APPOINTMENT WITH NEUROLOGIST AT IS 09/27/18 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 Allergies and Home Medications Allergies Coded Allergies: hydrocodone (Verified Allergy, Unknown, 09/23/17) sulfamethoxazole (Verified Allergy, Unknown, 09/23/17) trimethoprim (Verified Allergy, Unknown, 09/23/17) Home Medications Methylprednisolone 4 Mg Tab.ds.pk, 4 MG PO UD Prescribed by: MATT LEON on 07/16/18 0116 Ondansetron 4 Mg Tab.rapdis, 4 MG PO Q6H PRN for NAUSEA/VOMITING Prescribed by: BRETT CHIN on 09/23/17 1527 Oxycodone HCl/Acetaminophen 1 Each Tablet, 1 EACH PO Q6H PRN for PAIN Prescribed by: JIGNA GOMEZ on 01/01/182316 Prochlorperazine Maleate 25 Mg Supp.rect, 25 MG RC Q6H Prescribed by: MATT LEON on 07/16/18 0133 Rivaroxaban 1 Each Tab.ds.pk, 1 EACH PO UD 15mg by mouth twice daily x 21 days then 20mg by mouth daily Prescribed by: JIGNA GOMEZ on 01/01/18 231 Patient Home Medication List Home Medication List Reviewed: Yes Review of Systems Review of Systems Constitutional: see HPI, chills; No dizziness; fever Eyes: See HPI, Blurred Vision Ears, Nose, Mouth, Throat: no symptoms reported; denies nose discharge Respiratory: no symptoms reported Cardiovascular: no symptoms reported Gastrointestinal: see HPI; No abdominal pain; nausea; No vomiting Genitourinary: no symptoms reported : No (ON DEPO-PROVERA--LAST SHOT 06/10/18) LMP: May 27, 2018 Musculoskeletal: see HPI Skin: no symptoms reported Psychiatric/Neurological: See HPI, Headache, Pre-Existing Deficit Past Ouledsg-Ycbbiw-Kcertn Hx Patient Social History Alcohol Use: Denies Use Recreational Drug Use: No Smoking Status: Never a Smoker 2nd Hand Smoke Exposure: No Recent Foreign Travel: No Contact w/Someone Who Travel: No Recent Infectious Disease Expo: No Recent Hopitalizations: No Immunizations Up To Date Tetanus Booster (TDap): Unknown PED Vaccines UTD: Yes Seasonal Allergies Seasonal Allergies: No Past Medical History Surgeries: Yes (LEFT KNEE SCOPE X 7; KIDNEY BIOPSY; LUMBAR PUNCTURE WITH BLOOD PATCH) Gallbladder, Orthopedic Respiratory: No Cardiac: Yes Deep Vein Thrombosis Neurological: Yes Headaches /Migraines Female Reproductive Disorders: Denies Genitourinary: Yes (RENAL INSUFFICIENCY) Gastrointestinal: No Musculoskeletal: Yes Degenerate Disk Disease, Chronic Back Pain Endocrine: Yes (FABRY'S DISEASE) HEENT: No Cancer: No Psychosocial: Yes Sleep Difficulties, Anxiety, Depression Integumentary: No Blood Disorders: No Family Medical History No Pertinent Family Hx Physical Exam Vital Signs Vital Signs - First Documented 07/15/18 23:10 Temp 97.8 Pulse 85 Resp 16 B/P (MAP) 120/88 (99) Pulse Ox 98 O2 Delivery Room Air Capillary Refill : Less Than 3 Seconds Height, Weight, BMI Height: 5'5.00" Weight: 160lbs. 0oz. [id number]; BMI Method:Stated General Appearance: WD/WN, no apparent distress, other (SITTING UP, - STYLE. SMILING. TALKS NON-STOP AT GREAT LENGTH ABOUT HER CURRENT PROBLEM AND OTHER MEDICAL ISSUES. DOES NOT APPEAR TO BE IN ANY DISCOMFORT OR DISTRSS AT THIS TIME. DOES NOT APPEAR ILL. ) HEENT: PERRL/EOMI, normal ENT inspection, TMs normal, pharynx normal; No photophobia Neck: full range of motion, supple, normal inspection, tender lateral (WITH MILD MUSCLE SPASMS--RIGHT > LEFT. ) Cardiovascular: regular rate, rhythm, no edema, no JVD, no murmur Respiratory: normal breath sounds, no respiratory distress, no accessory muscle use Gastrointestinal: non tender, soft Back: no CVA tenderness Extremities: normal range of motion, non-tender, normal inspection, no pedal edema, no calf tenderness, normal capillary refill Psychiatric: alert, oriented x 3 Crainal Nerves: normal hearing, normal speech, PERRL Coordination/Gait: normal finger to nose, normal gait Motor/Sensory: no motor deficit, no sensory deficit Skin: normal color, warm/dry Progress/Results/Core Measures Results/Orders Lab Results Laboratory Tests Test 07/15/18 23:48 07/15/18 23:52 Range/Units White Blood Count 6.0 4.3-11.0 10^3/uL Red Blood Count 4.82 4.35-5.85 10^6/uL Hemoglobin 14.5 11.5-16.0 G/DL Hematocrit 43 35-52 % Mean Corpuscular Volume 90 80-99 FL Mean Corpuscular Hemoglobin 30 25-34 PG Mean Corpuscular Hemoglobin Concent 34 32-36 G/DL Red Cell Distribution Width 12.9 10.0-14.5 % Platelet Count 218 130-400 10^3/uL Mean Platelet Volume 10.3 7.4-10.4 FL Neutrophils (%) (Auto) 47 42-75 % Lymphocytes (%) (Auto) 45 H 12-44 % Monocytes (%) (Auto) 7 0-12 % Eosinophils (%) (Auto) 2 0-10 % Basophils (%) (Auto) 1 0-10 % Neutrophils # (Auto) 2.8 1.8-7.8 X 10^3 Lymphocytes # (Auto) 2.7 1.0-4.0 X 10^3 Monocytes # (Auto) 0.4 0.0-1.0 X 10^3 Eosinophils # (Auto) 0.1 0.0-0.3 10^3/uL Basophils # (Auto) 0.0 0.0-0.1 10^3/uL Prothrombin Time 13.4 12.2-14.7 SEC INR Comment 1.0 0.8-1.4 Activated Partial Thromboplast Time 26 24-35 SEC Sodium Level 141 135-145 MMOL/L Potassium Level 3.7 3.6-5.0 MMOL/L Chloride Level 112 H 98-107 MMOL/L Carbon Dioxide Level 20 L 21-32 MMOL/L Anion Gap 9 5-14 MMOL/L Blood Urea Nitrogen 14 7-18 MG/DL Creatinine 1.09 0.60-1.30 MG/DL Estimat Glomerular Filtration Rate > 60 BUN/Creatinine Ratio 13 Glucose Level 90 70-105 MG/DL Calcium Level 9.4 8.5-10.1 MG/DL Corrected Calcium 9.1 8.5-10.1 MG/DL Magnesium Level 2.7 H 1.8-2.4 MG/DL Total Bilirubin 0.5 0.1-1.0 MG/DL Aspartate Amino Transf (AST/SGOT) 14 5-34 U/L Alanine Aminotransferase (ALT/SGPT) 12 0-55 U/L Alkaline Phosphatase 50 40-136 U/L Total Protein 6.4 6.4-8.2 GM/DL Albumin 4.4 3.2-4.5 GM/DL Serum Test, Qualitative NEGATIVE NEGATIVE Monoscreen NEGATIVE NEGATIVE Urine Opiates Screen NEGATIVE NEGATIVE Urine Oxycodone Screen NEGATIVE NEGATIVE Urine Methadone Screen NEGATIVE NEGATIVE Urine Propoxyphene Screen NEGATIVE NEGATIVE Urine Barbiturates Screen NEGATIVE NEGATIVE Ur Tricyclic Antidepressants Screen NEGATIVE NEGATIVE Urine Phencyclidine Screen NEGATIVE NEGATIVE Urine Amphetamines Screen NEGATIVE NEGATIVE Urine Methamphetamines Screen NEGATIVE NEGATIVE Urine Benzodiazepines Screen NEGATIVE NEGATIVE Urine Cocaine Screen NEGATIVE NEGATIVE Urine Cannabinoids Screen NEGATIVE NEGATIVE Micro Results Microbiology 07/15/18 Influenza Types A,B Antigen (MAVERICK) - Final, Complete My Orders Orders - MATT LEON DO Saline Lock/Iv-Start (07/15/18 23:30) Monitor-Rhythm Ecg Trace Only (07/15/18 23:30) Cbc With Automated Diff (07/15/18 23:30) Comprehensive Metabolic Panel (07/15/18 23:30) Drug Screen Stat (Urine) (07/15/18 23:30) Hcg,Qualitative Serum (07/15/18 23:30) Magnesium (07/15/18 23:30) Monotest (07/15/18 23:30) Protime With Inr (07/15/18 23:30) Partial Thromboplastin Time (07/15/18 23:30) Influenza A And B Antigens (07/15/18 23:30) Ketorolac Injection (Toradol Injection) (07/15/18 23:30) Ondansetron Injection (Zofran Injectio (07/15/18 23:30) Saline Lock/Iv-Start (07/15/18 23:30) Lactated Ringers (Lr 1000 Ml Iv Solution (07/15/18 23:30) Ct Head Wo (07/16/18 00:05) Orphenadrine Injection (Norflex Injectio (07/16/18 01:00) Methylprednisolone Sod Succ (Solu-Medrol (07/16/18 01:00) Diphenhydramine Injection (Benadryl Inje (07/16/18 01:00) Prochlorperazine Injection (Compazine In (07/16/18 01:30) Prochlorperazine Injection (Compazine In (07/16/18 01:33) Medications Given in ED Current Medications Medications Dose Ordered Sig/Adele Route Start Time Stop Time Status Last Admin Dose Admin Diphenhydramine HCl 50 mg ONCE ONCE IVP 07/16/18 01:00 07/16/18 01:01 DC 07/16/18 01:13 50 MG Lactated Ringer's 1,000 ml @ 0 mls/hr Q0M ONCE IV 07/15/18 23:30 07/15/18 23:34 DC 07/15/18 23:45 1,000 MLS/HR Methylprednisolone Sodium Succinate 125 mg ONCE ONCE IVP 07/16/18 01:00 07/16/18 01:01 DC 07/16/18 01:09 125 MG Ondansetron HCl 4 mg ONCE ONCE IVP 07/15/18 23:30 07/15/18 23:34 DC 07/15/18 23:45 4 MG Orphenadrine Citrate 60 mg ONCE ONCE IV 07/16/18 01:00 07/16/18 01:01 DC 07/16/18 01:18 60 MG Prochlorperazine Edisylate 10 mg ONCE ONCE IV 07/16/18 01:30 07/16/18 02:11 DC 07/16/18 01:38 10 MG Vital Signs/I&O 07/15/18 07/16/18 23:10 01:59 Temp 97.8 99.0 Pulse 85 96 Resp 16 14 B/P (MAP) 120/88 (99) 105/81 (89) Pulse Ox 98 100 O2 Delivery Room Air Room Air Blood Pressure Mean: 99 Progress Progress Note : Progress Note NAUSEA RELIEVED WITH ZOFRAN--PT STATES SHE HAS SOME AT HOME, BUT HAS NOT TAKEN ANY PT ALSO LATER STATES THAT SHE HAS BEEN OUT OF FLEXERIL X 2 DAYS--HAS RX, "JUST GOT SENT TO THE WRONG PLACE" AT HEADACHE EASED AT TIME OF DISMISSAL Diagnostic Imaging Comments CT HEAD--NO ACUTE PROCESS, PER [facility] VIA FAX @ 8520 Reviewed: Reviewed by Me Departure Impression Primary Impression: Headache Additional Impression: Chronic headaches Disposition: 01 HOME, SELF-CARE Condition: Improved Departure-Patient Inst. Referrals: NO,LOCAL PHYSICIAN (PCP/Family) Primary Care Physician Patient Instructions: Headache, Adult (DC) Add. Discharge Instructions: HOME, REST CONTINUE YOUR CURRENT MEDICATIONS PRESCRIBED CONTINUE TO DRINK FLUIDS, INCLUDING CAFFEINE--DRINK ENOUGH SO YOU ARE URINATING EVERY 2-3 HOURS WHILE AWAKE. FOLLOW UP WITH YOUR NEUROLOGIST THIS WEEK FOR FURTHER CARE All discharge instructions reviewed with patient and/or family. Voiced understanding. Scripts Prochlorperazine Maleate (Compazine) 25 Mg Supp.rect 25 MG RC Q6H, #10 SUPP.RECT Prov: MATT LEON DO 07/16/18 Methylprednisolone (Medrol) 4 Mg Tab.ds.pk 4 MG PO UD, #1 PKG Prov: MATT LEON DO 07/16/18 MATT LEON DO Jul 15, 2018 23:20
[2018-07-15] MEDS ORDERED: LACTATED RINGERS 1,000 ML IV ONE (23:30)
[2018-07-15] MEDS ORDERED: ONDANSETRON 4 MG/2 ML (SDV) Z0FRAN IVP ONE (23:30)
[2018-07-15] MEDS ORDERED: KETOROLAC 30 MG/ML VIAL IVP STA (23:30)
[2018-07-15 23:55] LABS: BASOPHILS % (AUTO) 1 % (0-10); EOSINOPHILS # (AUTO) 0.1 10^3/uL (0.0-0.3); EOSINOPHILS % (AUTO) 2 % (0-10); HEMATOCRIT 43 % (35-52); HEMOGLOBIN 14.5 G/DL (11.5-16.0); LYMPHOCYTES # (AUTO) 2.7 X 10^3 (1.0-4.0); LYMPHOCYTES % (AUTO) 45 % (12-44); MEAN CORPUSCULAR HEMOGLOBIN 30 PG (25-34); MEAN CORPUSCULAR HGB CONC 34 G/DL (32-36); MEAN CORPUSCULAR VOLUME 90 FL (80-99); MEAN PLATELET VOLUME 10.3 FL (7.4-10.4); MONOCYTES # (AUTO) 0.4 X 10^3 (0.0-1.0); MONOCYTES % (AUTO) 7 % (0-12); NEUTROPHILS # (AUTO) 2.8 X 10^3 (1.8-7.8); NEUTROPHILS % (AUTO) 47 % (42-75); PLATELET COUNT 218 10^3/uL (130-400); RED BLOOD COUNT 4.82 10^6/uL (4.35-5.85); RED CELL DISTRIBUTION WIDTH 12.9 % (10.0-14.5)
[2018-07-16 00:13] LABS: AMPHETAMINE SCREEN, URINE NEGATIVE (NEGATIVE); BARBITURATE SCREEN URINE NEGATIVE (NEGATIVE); BENZODIAZEPINES SCREEN URINE NEGATIVE (NEGATIVE); CANNABINOID SCREEN, URINE NEGATIVE (NEGATIVE); COCAINE SCREEN URINE NEGATIVE (NEGATIVE); METHADONE STAT NEGATIVE (NEGATIVE); METHAMPHETAMINE SCREEN URINE S NEGATIVE (NEGATIVE); OPIATE SCREEN URINE NEGATIVE (NEGATIVE); OXYCODONE STAT NEGATIVE (NEGATIVE); PROPOXYPHENE STAT NEGATIVE (NEGATIVE); TRICYCLIC ANTIDEPRESSANTS SCRE NEGATIVE (NEGATIVE)
[2018-07-16 00:21] LABS: ALANINE AMINOTRANSFERASE 12 U/L (0-55); ALBUMIN 4.4 GM/DL (3.2-4.5); ALKALINE PHOSPHATASE 50 U/L (40-136); BILIRUBIN,TOTAL 0.5 MG/DL (0.1-1.0); BUN/CREATININE RATIO 13; CALCIUM 9.4 MG/DL (8.5-10.1); CARBON DIOXIDE 20 MMOL/L (21-32); CHLORIDE 112 MMOL/L (98-107); CREATININE SERUM 1.09 MG/DL (0.60-1.30); GFR ESTIMATED > 60; GLUCOSE 90 MG/DL (70-105); MAGNESIUM 2.7 MG/DL (1.8-2.4); POTASSIUM 3.7 MMOL/L (3.6-5.0); SODIUM 141 MMOL/L (135-145); TOTAL PROTEIN 6.4 GM/DL (6.4-8.2)
[2018-07-16 00:23] LABS: PROTHROMBIN TIME PATIENT 13.4 SEC (12.2-14.7)
--- NOTE | 2018-07-16 00:37 | NUR ---
Pt was asked about her headache and pt stated, "Still there."
[2018-07-16] MEDS ORDERED: diphenhydrAMINE 50 MG/ML INJ (BENADRYL) IVP ONE (01:00)
[2018-07-16] MEDS ORDERED: methylPREDNISolone 125 MG (Solu-MEDROL) VIAL IVP ONE (01:00)
[2018-07-16] MEDS ORDERED: ORPHENADRINE 60 MG/2 ML (NORFLEX) AMP IV ONE (01:00)
[2018-07-16] MEDS ORDERED: METH4TAB PO (01:16)
[2018-07-16] MEDS ORDERED: PROCHLORPERAZINE 10 MG/2ML INJ (COMPAZINE) IV ONE (01:30)
[2018-07-16] MEDS ORDERED: PROCHLORPERAZINE 10 MG/2ML INJ (COMPAZINE) ONE (01:33)
[2018-07-16] MEDS ORDERED: PROC25SU27 RC (01:33)
[2018-07-16 01:59] VITALS: BP 105/81
--- NOTE | 2018-07-16 06:21 | Diagnostic Imaging Report ---
INDICATION: Headache TECHNIQUE: Routine non contrast-enhanced axial images were obtained from the skull base to the vertex. COMPARISON: None. FINDINGS: The ventricles and cortical sulci are normal in size and contour. There is no midline shift or mass-effect. No acute intra-axial hemorrhage is seen. There are no abnormal areas of increased or decreased density to suggest acute hemorrhage or edema. No extra-axial masses or collections are present. The bony calvarium is intact. The visualized paranasal sinuses are unremarkable. The mastoid air cells are clear. IMPRESSION: 1. No acute intracranial abnormality. No CT evidence of mass, acute infarct or intracranial hemorrhage. Dictated by: Dictated on workstation # [id number]
== END 2018-07-16 01:59 | disposition home or self-care (01) ==
LOC: EDUNIT# 23:00 → ER 23:01
DX: R51 Headache (principal); G89.29 Other chronic pain; F41.9 Anxiety disorder, unspecified; F32.9 Major depressive disorder, single episode, unspecified; E75.21 Fabry (-Anderson) disease; Z88.5 Allergy status to narcotic agent; Z88.2 Allergy status to sulfonamides; Z88.8 Allergy status to other drugs, medicaments and biological substances; Z79.52 Long term (current) use of systemic steroids; Z79.01 Long term (current) use of anticoagulants; Z98.890 Other specified postprocedural states; Z86.718 Personal history of other venous thrombosis and embolism; Z87.448 Personal history of other diseases of urinary system; Z86.69 Personal history of other diseases of the nervous system and sense organs
CPT/HCPCS: 36415; 70450; 80053; 80306; 83735; 84703; 85025; 85610; 85730; 86308; 87804; 93041; 96361; 96374; 96375

== ENCOUNTER 2018-09-27 19:14 | Emergency (ER) | payer BC, MEDICAID ==
[~2018-09-27] VITALS: Ht 165.1 cm; Wt 72.1 kg
[~2018-09-27 19:14] MED LIST changes: +METH4TAB PO; +PROC25SU27 RC
[2018-09-27 19:23] VITALS: BP 114/74
[2018-09-27] MEDS ORDERED: PROC10TA10 (19:44)
[2018-09-27] MEDS ORDERED: GABA-490 (19:44)
[2018-09-27] MEDS ORDERED: DULO60CA58 (19:44)
[2018-09-27] MEDS ORDERED: CYCL5TAB (19:44)
--- NOTE | 2018-09-27 19:56 | ED Abdominal Pain ---
General Chief Complaint: Abdominal/GI Problems Stated Complaint: ABD PAIN Nursing Triage Note: PT PRESENTS TO ED WITH COMPLAINTS OF R LOWER ABDOMINAL PAIN SINCE 09/25/18. REPORTS NAUSEA AND DIAHRREA BUT NO VOMITING. Sepsis Screen: No Definite Risk Source of Information: Patient Exam Limitations: No Limitations History of Present Illness Date Seen by Provider: Sep 27, 2018 Time Seen by Provider: 19:54 Initial Comments To ER with right lower quadrant abdominal pain for the past 36-48 hours. She has had associated nausea but no vomiting, diarrhea. Denies vaginal discharge. Denies urinary symptoms. Denies fevers but has had chills. Timing/Duration: 1-2 Days Severity/Quality: Moderate Location: RLQ Radiation: No Radiation Activities at Onset: None Associated Symptoms: Fever/Chills, Nausea/Vomiting Allergies and Home Medications Allergies Coded Allergies: hydrocodone (Verified Allergy, Unknown, 09/23/17) sulfamethoxazole (Verified Allergy, Unknown, 09/23/17) trimethoprim (Verified Allergy, Unknown, 09/23/17) Home Medications Methylprednisolone 4 Mg Tab.ds.pk, 4 MG PO UD Prescribed by: MATT LEON on 07/16/18 0116 Ondansetron 4 Mg Tab.rapdis, 4 MG PO Q6H PRN for NAUSEA/VOMITING Prescribed by: BRETT CHIN on 09/23/17 1527 Ondansetron 8 Mg Tab.rapdis, 8 MG PO Q6H PRN for NAUSEA/VOMITING-1ST LINE Prescribed by: MARAH BLOCK on 09/27/182111 Oxycodone HCl/Acetaminophen 1 Each Tablet, 1 EACH PO Q6H PRN for PAIN Prescribed by: JIGNA GOMEZ on 01/01/182316 Prochlorperazine Maleate 25 Mg Supp.rect, 25 MG RC Q6H Prescribed by: MATT LEON on 07/16/18 0133 Rivaroxaban 1 Each Tab.ds.pk, 1 EACH PO UD 15mg by mouth twice daily x 21 days then 20mg by mouth daily Prescribed by: JIGNA GOMEZ on 01/01/182316 Patient Home Medication List Home Medication List Reviewed: Yes Review of Systems Review of Systems Constitutional: see HPI EENTM: No Symptoms Reported Respiratory: No Symptoms Reported Cardiovascular: No Symptoms Reported Gastrointestinal: See HPI, Abdominal Pain, Diarrhea, Nausea Genitourinary: No Symptoms Reported Musculoskeletal: no symptoms reported Skin: no symptoms reported Psychiatric/Neurological: No Symptoms Reported Endocrine: No Symptoms Reported Past Yfvvgnp-Xbtvcg-Bjatvc Hx Patient Social History Alcohol Use: Denies Use Recreational Drug Use: No Smoking Status: Never a Smoker 2nd Hand Smoke Exposure: No Recent Foreign Travel: No Contact w/Someone Who Travel: No Recent Infectious Disease Expo: No Recent Hopitalizations: No Physical Abuse: No Sexual Abuse: No Mistreated: No Fear: No Immunizations Up To Date Tetanus Booster (TDap): Unknown PED Vaccines UTD: Yes Seasonal Allergies Seasonal Allergies: No Past Medical History Surgeries: Yes (LEFT KNEE SCOPE X 7; KIDNEY BIOPSY; LUMBAR PUNCTURE WITH BLOOD PATCH) Gallbladder, Orthopedic Respiratory: No Cardiac: Yes (HX OF SINUS TACH) Deep Vein Thrombosis Neurological: Yes Headaches /Migraines, Neuropathy Female Reproductive Disorders: Denies Genitourinary: Yes (RENAL INSUFFICIENCY) Gastrointestinal: No Musculoskeletal: Yes Degenerate Disk Disease, Chronic Back Pain Endocrine: Yes (FABRY'S DISEASE) HEENT: No Cancer: No Psychosocial: Yes Sleep Difficulties, Anxiety, Depression Integumentary: No Blood Disorders: No Family Medical History No Pertinent Family Hx Physical Exam Vital Signs Vital Signs - First Documented 09/27/18 19:23 Temp 98.0 Resp 16 B/P (MAP) 114/74 (87) Pulse Ox 97 Capillary Refill : Less Than 3 Seconds Height/Weight/BMI Height: 5'5.00" Weight: 159lbs. 0oz. 72.276916iu; BMI Method:Stated General Appearance: WD/WN, no apparent distress HEENT: PERRL/EOMI, normal ENT inspection Respiratory: no respiratory distress, no accessory muscle use Cardiovascular: regular rate, rhythm, no murmur Gastrointestinal: normal bowel sounds, soft; No rebound; tenderness Extremities: normal range of motion, non-tender Neurologic/Psychiatric: alert, normal mood/affect, oriented x 3 Skin: normal color, warm/dry Progress/Results/Core Measures Results/Orders Lab Results Laboratory Tests Test 09/27/18 19:22 09/27/18 19:28 Range/Units Urine Color YELLOW Urine Clarity SLIGHTLY CLOUDY Urine pH 5 5-9 Urine Specific [place] 1.025 H 1.016-1.022 Urine Protein NEGATIVE NEGATIVE Urine Glucose (UA) NEGATIVE NEGATIVE Urine Ketones NEGATIVE NEGATIVE Urine Nitrite NEGATIVE NEGATIVE Urine Bilirubin NEGATIVE NEGATIVE Urine Urobilinogen 1 NORMAL MG/DL Urine Leukocyte Esterase 1+ H NEGATIVE Urine RBC (Auto) NEGATIVE NEGATIVE Urine RBC NONE /HPF Urine WBC RARE /HPF Urine Squamous Epithelial Cells 5-10 /HPF Urine Crystals PRESENT H /LPF Urine Calcium Oxalate Crystals MODERATE H /LPF Urine Bacteria TRACE /HPF Urine Casts NONE /LPF Urine Mucus SMALL H /LPF Urine Culture Indicated NO White Blood Count 5.3 4.3-11.0 10^3/uL Red Blood Count 4.85 4.35-5.85 10^6/uL Hemoglobin 14.4 11.5-16.0 G/DL Hematocrit 44 35-52 % Mean Corpuscular Volume 91 80-99 FL Mean Corpuscular Hemoglobin 30 25-34 PG Mean Corpuscular Hemoglobin Concent 33 32-36 G/DL Red Cell Distribution Width 14.0 10.0-14.5 % Platelet Count 225 130-400 10^3/uL Mean Platelet Volume 11.1 H 7.4-10.4 FL Neutrophils (%) (Auto) 45 42-75 % Lymphocytes (%) (Auto) 44 12-44 % Monocytes (%) (Auto) 8 0-12 % Eosinophils (%) (Auto) 3 0-10 % Basophils (%) (Auto) 1 0-10 % Neutrophils # (Auto) 2.4 1.8-7.8 X 10^3 Lymphocytes # (Auto) 2.3 1.0-4.0 X 10^3 Monocytes # (Auto) 0.4 0.0-1.0 X 10^3 Eosinophils # (Auto) 0.1 0.0-0.3 10^3/uL Basophils # (Auto) 0.0 0.0-0.1 10^3/uL Sodium Level 141 135-145 MMOL/L Potassium Level 3.9 3.6-5.0 MMOL/L Chloride Level 110 H 98-107 MMOL/L Carbon Dioxide Level 21 21-32 MMOL/L Anion Gap 10 5-14 MMOL/L Blood Urea Nitrogen 9 7-18 MG/DL Creatinine 1.04 0.60-1.30 MG/DL Estimat Glomerular Filtration Rate > 60 BUN/Creatinine Ratio 9 Glucose Level 65 L 70-105 MG/DL Calcium Level 9.4 8.5-10.1 MG/DL Corrected Calcium 9.1 8.5-10.1 MG/DL Total Bilirubin 0.5 0.1-1.0 MG/DL Aspartate Amino Transf (AST/SGOT) 17 5-34 U/L Alanine Aminotransferase (ALT/SGPT) 10 0-55 U/L Alkaline Phosphatase 66 40-136 U/L Total Protein 7.0 6.4-8.2 GM/DL Albumin 4.4 3.2-4.5 GM/DL Serum Test, Qualitative NEGATIVE NEGATIVE My Orders Orders - MARAH BLOCK 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[employer]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 Cbc With Automated Diff (09/27/18 19:52) Hcg,Qualitative Serum (09/27/18 19:52) Comprehensive Metabolic Panel (09/27/18 19:52) Ua Culture If Indicated (09/27/18 19:52) Iv Heplock-Insert (Order) (09/27/18 19:52) Ketorolac Injection (Toradol Injection) (09/27/18 20:00) Ns Iv 1000 Ml (Sodium Chloride 0.9%) (09/27/18 20:00) Ondansetron Injection (Zofran Injectio (09/27/18 20:00) Ct Abd/Pelv W (Appendicitis) (09/27/18 19:54) Urine Bedside (09/27/18 19:57) Medications Given in ED Current Medications Medications Dose Ordered Sig/Adele Route Start Time Stop Time Status Last Admin Dose Admin Ketorolac Tromethamine 15 mg ONCE ONCE IVP 09/27/18 20:00 09/27/18 20:01 DC 09/27/18 20:07 15 MG Ondansetron HCl 8 mg ONCE ONCE IVP 09/27/18 20:00 09/27/18 20:01 DC 09/27/18 20:07 8 MG Vital Signs/I&O 09/27/18 19:23 Temp 98.0 Resp 16 B/P (MAP) 114/74 (87) Pulse Ox 97 Blood Pressure Mean: 87 Departure Impression Primary Impression: Nausea vomiting and diarrhea Disposition: HOME, SELF-CARE Condition: Stable Departure-Patient Inst. Decision time for Depature: 21:10 Referrals: NO,LOCAL PHYSICIAN (PCP/Family) Primary Care Physician Patient Instructions: Diarrhea in Adolescents and Adults, Mesenteric Lymphadenitis, Nausea and Vomiting, Adult Add. Discharge Instructions: 1. You may use [id number] Imodium to help with the diarrhea use the nausea medication as directed. Return to ER for any concerns. Follow-up with your doctor later this week. All discharge instructions reviewed with patient and/or family. Voiced understanding. Scripts Ondansetron (Ondansetron Odt) 8 Mg Tab.rapdis 8 MG PO Q6H PRN for NAUSEA/VOMITING-1ST LINE, #10 TAB Prov: MARAH BLOCK APRN 09/27/18 Work/School Note: Work Release Form Date Seen in the Emergency Department: Sep 27, 2018 Return to Work: Sep 29, 2018 MARAH BLOCK APRN Sep 27, 2018 19:56
[2018-09-27] MEDS ORDERED: KETOROLAC 30 MG/ML VIAL IVP ONE (20:00)
[2018-09-27] MEDS ORDERED: NS IV 1000 ML 1,000 ML IV SCH (20:00)
[2018-09-27] MEDS ORDERED: ONDANSETRON 4 MG/2 ML (SDV) Z0FRAN IVP ONE (20:00)
[2018-09-27 20:28] LABS: BILIRUBIN,URINE NEGATIVE (NEGATIVE); CLARITY,URINE SLIGHTLY CLOUDY; COLOR,URINE YELLOW; GLUCOSE, URINE (UA) NEGATIVE (NEGATIVE); KETONES,URINE NEGATIVE (NEGATIVE); LEUKOCYTE ESTERASE ,URINE 1+ (NEGATIVE); NITRITE,URINE NEGATIVE (NEGATIVE); PH,URINE 5 (5-9); PROTEIN,URINE NEGATIVE (NEGATIVE); UROBILINOGEN,URINE 1 MG/DL (NORMAL)
[2018-09-27 20:37] LABS: BASOPHILS % (AUTO) 1 % (0-10); EOSINOPHILS # (AUTO) 0.1 10^3/uL (0.0-0.3); EOSINOPHILS % (AUTO) 3 % (0-10); HEMATOCRIT 44 % (35-52); HEMOGLOBIN 14.4 G/DL (11.5-16.0); LYMPHOCYTES # (AUTO) 2.3 X 10^3 (1.0-4.0); LYMPHOCYTES % (AUTO) 44 % (12-44); MEAN CORPUSCULAR HEMOGLOBIN 30 PG (25-34); MEAN CORPUSCULAR HGB CONC 33 G/DL (32-36); MEAN CORPUSCULAR VOLUME 91 FL (80-99); MEAN PLATELET VOLUME 11.1 FL (7.4-10.4); MONOCYTES # (AUTO) 0.4 X 10^3 (0.0-1.0); MONOCYTES % (AUTO) 8 % (0-12); NEUTROPHILS # (AUTO) 2.4 X 10^3 (1.8-7.8); NEUTROPHILS % (AUTO) 45 % (42-75); PLATELET COUNT 225 10^3/uL (130-400); WHITE BLOOD COUNT 5.3 10^3/uL (4.3-11.0)
[2018-09-27 20:39] LABS: BACTERIA,URINE TRACE /HPF; CALCIUM OXALATE CRYSTALS,UR MODERATE /LPF; WBC,URINE RARE /HPF
[2018-09-27 20:47] LABS: ALANINE AMINOTRANSFERASE 10 U/L (0-55); ALBUMIN 4.4 GM/DL (3.2-4.5); ALKALINE PHOSPHATASE 66 U/L (40-136); BILIRUBIN,TOTAL 0.5 MG/DL (0.1-1.0); BUN/CREATININE RATIO 9; CALCIUM 9.4 MG/DL (8.5-10.1); CARBON DIOXIDE 21 MMOL/L (21-32); CHLORIDE 110 MMOL/L (98-107); CREATININE SERUM 1.04 MG/DL (0.60-1.30); GFR ESTIMATED > 60; GLUCOSE 65 MG/DL (70-105); POTASSIUM 3.9 MMOL/L (3.6-5.0); SODIUM 141 MMOL/L (135-145)
--- NOTE | 2018-09-27 21:02 | Diagnostic Imaging Report ---
PROCEDURE: CT abdomen and pelvis with contrast, rule out appendicitis. TECHNIQUE: Multiple contiguous axial images were obtained through the abdomen and pelvis after the administration of intravenous contrast. INDICATION: Right lower quadrant pain. FINDINGS: The lung bases are clear. There is an 8 mm cyst in the dome of the liver which appears simple in nature. Gallbladder and bile ducts are normal. The pancreas and spleen are normal. The adrenal glands and kidneys appear normal. The stomach is distended and filled with food. Small bowel is not dilated. The appendix is visualized and normal. The colon shows normal stool and gas pattern. The uterus is not enlarged. There is a simple appearing cyst in the left ovary measuring 1.5 cm. The bladder is not distended. There is no free air or free fluid. No abdominal adenopathy of pathologic size. IMPRESSION: 1. There is rather marked distention of the stomach which is filled with food and fluid. 2. The appendix is visualized and normal. 3. The kidneys, ureters and bladder appear normal. Dictated by: Dictated on workstation # [id number]
[2018-09-27] MEDS ORDERED: ONDA8TAB13 PO (21:12)
== END 2018-09-27 21:22 | disposition home or self-care (01) ==
LOC: EDUNIT# 19:14 → ER 19:15
DX: R11.2 Nausea with vomiting, unspecified (principal); R19.7 Diarrhea, unspecified; G43.909 Migraine, unspecified, not intractable, without status migrainosus; F41.9 Anxiety disorder, unspecified; F32.9 Major depressive disorder, single episode, unspecified; E75.21 Fabry (-Anderson) disease; Z88.5 Allergy status to narcotic agent; Z88.2 Allergy status to sulfonamides; Z88.8 Allergy status to other drugs, medicaments and biological substances; Z79.52 Long term (current) use of systemic steroids; Z79.01 Long term (current) use of anticoagulants; Z98.890 Other specified postprocedural states; Z86.718 Personal history of other venous thrombosis and embolism
CPT/HCPCS: 36415; 74177; 80053; 81000; 84703; 85025; 96361; 96374; 96375

== ENCOUNTER → 2018-11-05 | Outpatient (CLI) | payer BC, MEDICAID ==
[~2018-11-05] MED LIST changes: +CYCL5TAB; +DULO60CA58; +GABA-490; +ONDA8TAB13 PO; +PROC10TA10
--- NOTE | 2018-11-05 13:59 | Diagnostic Imaging Report ---
MRI RT LOWER EXT JOINT W/O TECHNIQUE: Multiplanar, multisequence MR imaging of the right knee was performed without contrast. COMPARISON: None available. INDICATION: Right knee pain. FINDINGS: MENISCI Medial meniscus: There is small amount of intrinsic signal in the posterior horn of the medial meniscus which does not contact an articular surface and is likely due to mild intrasubstance degeneration versus residual fibrovascular tissue. No medial meniscal tear. Lateral meniscus: Normal. LIGAMENTS ACL: Intact. PCL: Intact. MCL: Intact. LCL: The lateral collateral ligamentous complex is intact. EXTENSOR MECHANISM The extensor mechanism is intact. Mild edema-like signal in the anterior suprapatellar (quadriceps) fat pad. CARTILAGE Medial compartment: Medial compartment articular cartilage is well preserved without focal high-grade chondromalacia. Lateral compartment: The lateral compartment articular cartilage is preserved without high-grade chondromalacia. Patellofemoral compartment: The patellofemoral articular cartilage is well preserved without high-grade chondromalacia. BONE No fracture, stress fracture or osteonecrosis. SOFT TISSUE No knee joint effusion. A moderate-sized Jordan's cyst is present that measures over a length of approximately 8 cm and has maximal width of 1.9 cm that is most proximal aspect. The more mid and inferior aspects of the cyst have an elongated and thin configuration. IMPRESSION: 1. Edema within the quadriceps (anterior suprapatellar) fat-pad can be seen with fat-pad impingement. Correlation for suprapatellar anterior knee pain is suggested. 2. No meniscal tear or articular cartilage abnormality. 3. The cruciate and collateral ligaments are intact. 4. Moderate-sized nonruptured Jordan's cyst. Dictated by: Dictated on workstation # [id number]
== END ==
LOC: RAD 12:21
PROVIDERS: ATTEND Nurse Practitioner
DX: M71.21 Synovial cyst of popliteal space [Baker], right knee (principal); M25.861 Other specified joint disorders, right knee
CPT/HCPCS: 73721

== ENCOUNTER 2019-05-08 11:20 | Emergency (ER) | payer BC, MEDICAID ==
[~2019-05-08] VITALS: Ht 167 cm; Wt 67.2 kg
[~2019-05-08 11:20] MED LIST changes: -DULO60CA58; +DULO60CA59
[2019-05-08] MEDS ORDERED: GABA-488 (11:45)
[2019-05-08] MEDS ORDERED: DULO30CA49 (11:45)
[2019-05-08] MEDS ORDERED: BUPR150T14 (11:45)
[2019-05-08] MEDS ORDERED: CNC1KV (11:45)
[2019-05-08] MEDS ORDERED: BENZ-36 (11:45)
[2019-05-08 12:22] LABS: CALCIUM 9.1 MG/DL (8.5-10.1); CREATININE SERUM 1.09 MG/DL (0.60-1.30); POTASSIUM 4.1 MMOL/L (3.6-5.0)
[2019-05-08 12:36] VITALS: BP 110/79
[2019-05-08] MEDS ORDERED: NS 100 ML (IVPB) BAG IV ONE (13:00)
[2019-05-08] MEDS ORDERED: IOHEXOL 350 MG/ML 100 ML (OMNIPAQUE 350) VIAL IV ONE (13:00)
[2019-05-08] MEDS ORDERED: HOLD METFORMIN - RECEIVED CONTRAST 20 ML VIAL IV SCH (13:00)
--- NOTE | 2019-05-08 13:34 | ED Lower Extremity ---
General Chief Complaint: Lower Extremity Stated Complaint: L LEG PAIN/SWELLING, HX OF DVT Nursing Triage Note: c/o L leg swelling with pain since friday05/05/2019. Patient reports having 3 in the past Nursing Sepsis Screen: No Definite Risk Source: patient Exam Limitations: no limitations History of Present Illness Date Seen by Provider: May 08, 2019 Time Seen by Provider: 13:26 Initial Comments This 29-year-old white female presents with swelling of her left leg starting 3 days ago. 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 The patient also suffers from a bleeding disorder complicating her anticoagulation needs. Allergies and Home Medications Allergies Coded Allergies: hydrocodone (Verified Allergy, Unknown, 09/23/17) sulfamethoxazole (Verified Allergy, Unknown, 09/23/17) trimethoprim (Verified Allergy, Unknown, 09/23/17) Patient Home Medication List Home Medication List Reviewed: Yes Review of Systems Constitutional: No chills, No fever EENTM: no symptoms reported Respiratory: no symptoms reported, see HPI; No cough, No short of breath Cardiovascular: No chest pain, No palpitations Gastrointestinal: No abdominal pain, No nausea, No vomiting Genitourinary: No dysuria, No frequency Musculoskeletal: no symptoms reported Skin: no symptoms reported Psychiatric/Neurological: No Symptoms Reported Past Oscqoze-Ijizao-Uyzhyh Hx Past Med/Social Hx: Reviewed Nursing Past Med/Soc Hx Patient Social History Alcohol Use: Denies Use Recreational Drug Use: No 2nd Hand Smoke Exposure: No Recent Foreign Travel: No Contact w/Someone Who Travel: No Recent Infectious Disease Expo: No Recent Hopitalizations: No Physical Abuse: No Sexual Abuse: No Immunizations Up To Date Tetanus Booster (TDap): Unknown PED Vaccines UTD: Yes Date of Influenza Vaccine: Mar 22, 2019 Seasonal Allergies Seasonal Allergies: No Past Medical History Surgeries: Yes (LEFT KNEE SCOPE X 7; KIDNEY BIOPSY; LUMBAR PUNCTURE WITH BLOOD PATCH) Gallbladder, Orthopedic Respiratory: No Cardiac: Yes (HX OF SINUS TACH) Deep Vein Thrombosis Neurological: Yes Headaches /Migraines, Neuropathy Female Reproductive Disorders: Denies Genitourinary: Yes (RENAL INSUFFICIENCY) Gastrointestinal: No Musculoskeletal: Yes Degenerate Disk Disease, Chronic Back Pain Endocrine: Yes (FABRY'S DISEASE) HEENT: No Cancer: No Psychosocial: Yes Sleep Difficulties, Anxiety, Depression Integumentary: No Blood Disorders: No Family Medical History No Pertinent Family Hx Physical Exam Vital Signs Vital Signs - First Documented 05/08/19 05/08/19 11:33 12:36 Temp 37.1 Pulse 110 Resp 18 B/P (MAP) 128/100 (109) Pulse Ox 100 O2 Delivery Room Air Capillary Refill : Less Than 3 Seconds Height, Weight, BMI Height: 5'5.00" Weight: 159lbs. 0oz. 72.054034rq; 24.00 BMI Method:Stated General Appearance: WD/WN, no apparent distress HEENT: normal ENT inspection Neck: normal inspection Cardiovascular: regular rate, rhythm, tachycardia Respiratory: lungs clear Gastrointestinal: normal bowel sounds Back: normal inspection Neurologic/Psychiatric: no motor/sensory deficits, alert, normal mood/affect Skin: normal color, warm/dry Progress/Results/Core Measures Results/Orders Lab Results Laboratory Tests Test 05/08/19 11:53 Range/Units D-Dimer 1.44 H 0.00-0.49 UG/ML Sodium Level 139 135-145 MMOL/L Potassium Level 4.1 3.6-5.0 MMOL/L Chloride Level 111 H 98-107 MMOL/L Carbon Dioxide Level 18 L 21-32 MMOL/L Anion Gap 10 5-14 MMOL/L Blood Urea Nitrogen 9 7-18 MG/DL Creatinine 1.09 0.60-1.30 MG/DL Estimat Glomerular Filtration Rate 60 BUN/Creatinine Ratio 8 Glucose Level 92 70-105 MG/DL Calcium Level 9.1 8.5-10.1 MG/DL My Orders Orders - ASIA JACOBS MD Basic Metabolic Panel (05/08/19 11:30) Fibrin Degradation Products (05/08/19 11:33) Ct Angio Chest W (05/08/19 12:57) Medications Given in ED Current Medications Medications Dose Ordered Sig/Adele Route Start Time Stop Time Status Last Admin Dose Admin Iohexol 100 ml ONCE ONCE IV 05/08/19 13:00 05/08/19 13:09 DC 05/08/19 13:54 63 ML Sodium Chloride 100 ml ONCE ONCE IV 05/08/19 13:00 05/08/19 13:09 DC 05/08/19 13:54 100 ML Vital Signs/I&O 05/08/19 05/08/19 11:33 12:36 Temp 37.1 37.1 Pulse 110 83 Resp 18 18 B/P (MAP) 128/100 (109) 110/79 (89) Pulse Ox 100 99 O2 Delivery Room Air Blood Pressure Mean: 89 POS Progress Progress Note : Time: 13:37 Progress Note Telephone conversation was undertaken with MARINO with internal medicine physician bed control specialist. His recommendation was a patient receive a PE study. This has been done. Following completion of the PE study [facility] will be consult again and definitive arrangements will be made for the patient. [address] anterior chest was negative. After intravenous information to MARINO the recommendation was that the patient be anticoagulated and that the patient received the left lower extremity in the next physicians fashion and be placed in the hospital on heparin. i explained the treatment options to the patient and she elected to use lovenox at home which she has done in the past for this same condition. she will present for an ultrasound friday at 730. results will be called to me and will make arrangements for the patient to follow-up with marino and continue with lovenox if her ultrasound study demonstrates a dvt. Initial ECG Impression Date: May 08, 2019 Departure Impression Primary Impression: Left leg DVT Qualified Codes: I82.4Z2 - Acute embolism and thrombosis of unspecified deep veins of left distal lower extremity Disposition: 01 HOME, SELF-CARE Condition: Improved Departure-Patient Inst. Decision time for Depature: 15:59 Referrals: [facility] [place]IC[place] (PCP) Primary Care Physician Patient Instructions: Deep Vein Thrombosis (Blood Clots in the Legs) Add. Discharge Instructions: Lovenox 60 mg subcutaneous every 12 hours. Return to the emergency department over the weekend if you have any problems. Return Friday for outpatient ultrasound of left lower extremity. The patient voiced understanding of the instructions. ASIA JACOBS MD May 08, 2019 13:34 POS
--- NOTE | 2019-05-08 14:06 | Diagnostic Imaging Report ---
PROCEDURE: CT angiography of the chest with contrast. TECHNIQUE: Multiple contiguous axial images were obtained through the chest after uneventful bolus administration of intravenous contrast. 3D reconstructed CTA MIP acquisitions were also performed. Auto Exposure Controls were utilized during the CT exam to meet ALARA standards for radiation dose reduction. INDICATION: Left leg swelling. Elevated D-dimer. History of three previous pulmonary emboli in the past. EXAMINATION: CT angiogram of the chest from 05/08/2019. COMPARISON: None. FINDINGS: There are no central pulmonary emboli. Some of the more peripheral vessels are not well-opacified and a small distal embolus is difficult to exclude. No proximal segmental emboli appreciated. There is no acute process seen within the thoracic aorta. Densities in the anterior mediastinum are most likely residual thymic tissue. No significant adenopathy is seen in the mediastinum or maryam. Within the lungs, no acute abnormality is appreciated. No infiltrates or effusions. No pneumothorax. Visualized upper abdominal structures demonstrate chronic changes. No acute process. Evidence of previous cholecystectomy noted. IMPRESSION: 1. No central or proximal segmental pulmonary emboli. Peripheral vessels are not well evaluated. 2. Incidental findings otherwise noted. No acute process in the chest. Dictated by: Dictated on workstation # [id number]
[2019-05-08 16:06] VITALS: BP 108/84
--- OUTSIDE RECORDS SUMMARY | 2019-05-31 23:21 | XMS REPORT ---
Author Author Migration, Doctor POS Organization [facility] SP Address Unknown SP Phone Unavailable SP Care Team Providers Care Furnace Feeder Name Role Phone POS Migration, Doctor Unavailable Unavailable SP PROBLEMS Type Condition ICD9-CM Code [id number] Code Onset Dates Condition S tatus SNOMED POS Problem Supervision of normal first V22.0 Active [id number] POS Problem Seasonal allergic rhinitis due to other allergic trigger J30.89 SP [id number] SP Problem Depressive disorder, not elsewhere classified F32. 9 Active [id number] SP Problem Generalized anxiety disorder F41.1 A ctive [id number] SP ALLERGIES Substance Reaction Event Type Date Status POS Bactrim Unknown Drug Allergy Oct, Active SP ENCOUNTERS Encounter Location Date Diagnosis POS [facility] [address] [id number] [address] [place] [phone] SP Jan, [facility] [id number] [address] [place] [phone] SP November, SP [facility] [address] [id number] [address] [place] [address] SP November, Dysuria R30.0 and Vaginal di scharge N89.8 SP [facility] [address] [id number] [address] [place] [address] SP November, Burn from the sun L55.9 and Seasonal allergic rhinitis due to SP allergic trigger J30.89 [facility] [address] [facility] [id number] [address] [place] [address] SP Aug, Acute bronchitis, unspecifie d organism J20.9 SP [facility] [address] [facility] [id number] [address] [place] [address] SP Aug, Pneumonia of right upper lob e due to infectious organism J18.1 SP [facility] [address] [facility] [id number] [address] [place] [address] SP Mar, Acute nasopharyngitis J00 SP [facility] [address] [facility] [id number] [address] [place] [phone] SP November, Generalized anxiety disorder F41.1 and Depressive disorder, not SP classified F32.9 [facility] [address] [id number] [address] [place] [phone] SP 14 Oct, [address] [facility] [address] [facility] [id number] [address] [place] [phone] SP Oct, [facility] [address] [id number] [address] [place] [id number] SP Jul, [facility] [address] [id number] [address] [place] [phone] SP Jul, [facility] [address] [facility] [id number] [address] [place] [phone] SP Jun, SP [facility] [address] [facility] [id number] [address] [place] [phone] SP Jun, SP [facility] [address] [facility] [id number] [address] [place] [phone] SP May, SP [facility] [address] [facility] [id number] [address] [place] [phone] SP May, [facility] [address] [facility] [id number] [address] [place] [phone] SP May, SP [facility] [address] [id number] [address] [place] [phone] SP May, SP [facility] [address] [facility] [id number] [address] [place] [phone] SP Apr, SP [facility] [address] [facility] [id number] [address] [place] [phone] SP Feb, SP IMMUNIZATIONS No Known Immunizations SOCIAL HISTORY Never Assessed REASON FOR VISIT EMR-[facility] [place] PLAN OF CARE VITAL SIGNS MEDICATIONS Medication Instructions Dosage Frequency Start Date End Date Duration S tatus POS Zofran ODT 8 mg 1 tablet by Oral route every 8 hours P RN nausea or vomiting SP May, 2013 Active SP RESULTS No Results PROCEDURES No Known procedures INSTRUCTIONS MEDICATIONS ADMINISTERED No Known Medications MEDICAL (GENERAL) HISTORY Type Description Date POS Medical History Fabrys disease for 11 years, diagnosed 2 months ago SP Medical History decreaesd kidney function- sees a nephro logist SP Medical History 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
--- OUTSIDE RECORDS SUMMARY | 2019-05-31 23:21 | XMS REPORT | Continuity of Care Document ---
Author Organization Unknown POS Address Unknown SP Phone Unavailable SP Allergies Active Description Code Type Severity POS Reaction Onset Reported/Identified POS to Patient Clinical Status POS Yes Bactrim Drug N/A SP itching SP Yes Bactrim Drug N/A N/A SP SP Yes HYDROcodone Drug N/A SP ]~internal itching SP Yes HYDROcodone Drug N/A N/A SP SP Yes Klor-Con Drug N/A SP itching SP Yes hydrocodone [id number] Drug Aller gy SP N/A 09/23/2017 SP Yes sulfamethoxazole [id number] Drug Allergy SP Unknown N/A 09/23/2017 SP SP Yes trimethoprim [id number] Drug Allergy SP Unknown N/A 09/23/2017 SP Medications There is no data. Problems Date Dx Coded Attending Type Code POS Diagnosed By POS 09/23/2017 BRETT CHIN MD Ot E86.0 SP DEHYDRATION SP 09/23/2017 BRETT CHIN MD Ot G43.909 SP MIGRAINE, UNSP, NOT INTRACTABLE, WITHOUT SP 09/23/2017 BRETT CHIN MD Ot G97.1 SP OTHER REACTION TO SPINAL AND LUMBAR PUNC SP 09/23/2017 BRETT CHIN MD Ot R51 SP HEADACHE SP 09/23/2017 BRETT CHIN MD Ot Z88.2 SP ALLERGY STATUS TO SULFONAMIDES STATUS SP 09/23/2017 BRETT CHIN MD Ot Z88.3 SP ALLERGY STATUS TO OTHER ANTI-INFECTIVE A SP 09/23/2017 BRETT CHIN MD Ot Z88.5 SP ALLERGY STATUS TO NARCOTIC AGENT STATUS SP 09/25/2017 BRETT CHIN MD Ot E86.0 SP DEHYDRATION SP 09/25/2017 BRETT CHIN MD Ot G43.909 SP MIGRAINE, UNSP, NOT INTRACTABLE, WITHOUT SP 09/25/2017 BRETT CHIN MD Ot G97.1 SP OTHER REACTION TO SPINAL AND LUMBAR PUNC SP 09/25/2017 BRETT CHIN MD Ot R51 SP HEADACHE SP 09/25/2017 BRETT CHIN MD Ot Z88.2 SP ALLERGY STATUS TO SULFONAMIDES STATUS SP 09/25/2017 BRETT CHIN MD Ot Z88.3 SP ALLERGY STATUS TO OTHER ANTI-INFECTIVE A SP 09/25/2017 BRETT CHIN MD Ot Z88.5 SP ALLERGY STATUS TO NARCOTIC AGENT STATUS SP 09/29/2017 BRETT CHIN MD Ot E86.0 SP DEHYDRATION SP 09/29/2017 BRETT CHIN MD Ot G43.909 SP MIGRAINE, UNSP, NOT INTRACTABLE, WITHOUT SP 09/29/2017 BRETT CHIN MD Ot G97.1 SP OTHER REACTION TO SPINAL AND LUMBAR PUNC SP 09/29/2017 BRETT CHIN MD Ot R51 SP HEADACHE SP 09/29/2017 BRETT CHIN MD Ot Z88.2 SP ALLERGY STATUS TO SULFONAMIDES STATUS SP 09/29/2017 BRETT CHIN MD Ot Z88.3 SP ALLERGY STATUS TO OTHER ANTI-INFECTIVE A SP 09/29/2017 BRETT CHIN MD Ot Z88.5 SP ALLERGY STATUS TO NARCOTIC AGENT STATUS SP 01/02/2018 JIGNA GOMEZ MD Ot I82.4Z2 SP AC EMBLSM AND THOMBOS UNSP DEEP VEINS OF SP 01/02/2018 JIGNA GOMEZ MD Ot M25.572 SP PAIN IN LEFT ANKLE AND JOINTS OF LEFT FO SP 01/02/2018 JIGNA GOMEZ MD Ot Z88. 1 SP STATUS TO OTHER ANTIBIOTIC AGENT SP 01/02/2018 JIGNA GOMEZ MD Ot Z88. 2 SP STATUS TO SULFONAMIDES STATUS SP 01/02/2018 JIGNA GOMEZ MD Ot Z88. 5 SP STATUS TO NARCOTIC AGENT STATUS SP 01/05/2018 JIGNA GOMEZ MD Ot I82.4Z2 SP AC EMBLSM AND THOMBOS UNSP DEEP VEINS OF SP 01/05/2018 JIGNA GOMEZ MD Ot M25.572 SP PAIN IN LEFT ANKLE AND JOINTS OF LEFT FO SP 01/05/2018 PATRICIA MD, JIGNA J Ot Z88. 1 SP STATUS TO OTHER ANTIBIOTIC AGENT SP 01/05/2018 JIGNA GOMEZ MD J Ot Z88. 2 SP STATUS TO SULFONAMIDES STATUS SP 01/05/2018 JIGNA GOMEZ MD J Ot Z88. 5 SP STATUS TO NARCOTIC AGENT STATUS SP 01/05/2018 JIGNA GOMEZ MD J Ot I82. 90 SP EMBOLISM AND THROMBOSIS OF UNSPECI SP 01/05/2018 JIGNA GOMEZ MD Ot R06. 02 SP OF BREATH SP 01/05/2018 JIGNA GOMEZ MD J Ot R07. 89 SP CHEST PAIN SP 01/05/2018 JIGNA GOMEZ MD J Ot Z79. 01 SP TERM (CURRENT) USE OF ANTICOAGULANT SP 01/05/2018 JIGNA GOMEZ MD J Ot Z88. 1 SP STATUS TO OTHER ANTIBIOTIC AGENT SP 01/05/2018 JIGNA GOMEZ MD J Ot Z88. 2 SP STATUS TO SULFONAMIDES STATUS SP 01/05/2018 JIGNA GOMEZ MD Ot Z88. 5 SP STATUS TO NARCOTIC AGENT STATUS SP 01/05/2018 JIGNA GOMEZ MD Ot Z98.890 SP OTHER SPECIFIED POSTPROCEDURAL STATES SP 01/07/2018 JIGNA GOMEZ MD J Ot I82. 90 SP EMBOLISM AND THROMBOSIS OF UNSPECI SP 01/07/2018 JIGNA GOMEZ MD Ot R06. 02 SP OF BREATH SP 01/07/2018 JIGNA GOMEZ MD J Ot R07. 89 SP CHEST PAIN SP 01/07/2018 JIGNA GOMEZ MD J Ot Z79. 01 SP TERM (CURRENT) USE OF ANTICOAGULANT SP 01/07/2018 JIGNA GOMEZ MD J Ot Z88. 1 SP STATUS TO OTHER ANTIBIOTIC AGENT SP 01/07/2018 JIGNA GOMEZ MD Ot Z88. 2 SP STATUS TO SULFONAMIDES STATUS SP 01/07/2018 JIGNA GOMEZ MD Ot Z88. 5 SP STATUS TO NARCOTIC AGENT STATUS SP 01/07/2018 JIGNA GOMEZ MD Ot Z98.890 SP OTHER SPECIFIED POSTPROCEDURAL STATES SP 05/07/2018 JIGNA GOMEZ MD Ot R55 SP AND COLLAPSE SP 05/07/2018 JIGNA GOMEZ MD Ot Z79. 01 SP TERM (CURRENT) USE OF ANTICOAGULANT SP 05/07/2018 JIGNA GOMEZ MD Ot Z79. 82 SP TERM (CURRENT) USE OF ASPIRIN SP 05/07/2018 JIGNA GOMEZ MD Ot Z86.718 SP PERSONAL HISTORY OF OTHER VENOUS THROMBO SP 05/07/2018 JIGNA GOMEZ MD Ot Z87.448 SP PERSONAL HISTORY OF OTHER DISEASES OF UR SP 05/07/2018 JIGNA GOMEZ MD Ot Z88. 2 SP STATUS TO SULFONAMIDES STATUS SP 05/07/2018 JIGNA GOMEZ MD Ot Z88. 5 SP STATUS TO NARCOTIC AGENT STATUS SP 05/07/2018 JIGNA GOMEZ MD Ot Z88. 8 SP STATUS TO OTH DRUG/MEDS/BIOL SUB SP 05/07/2018 JIGNA GOMEZ MD Ot Z90. 49 SP ABSENCE OF OTHER SPECIFIED PART SP 05/07/2018 JIGNA GOMEZ MD Ot Z98.890 SP OTHER SPECIFIED POSTPROCEDURAL STATES SP 05/10/2018 JIGNA GOMEZ MD Ot R55 SP AND COLLAPSE SP 05/10/2018 JIGNA GOMEZ MD Ot Z79. 01 SP TERM (CURRENT) USE OF ANTICOAGULANT SP 05/10/2018 JIGNA GOMEZ MD Ot Z79. 82 SP TERM (CURRENT) USE OF ASPIRIN SP 05/10/2018 JIGNA GOMEZ MD Ot Z86.718 SP PERSONAL HISTORY OF OTHER VENOUS THROMBO SP 05/10/2018 JIGNA GOMEZ MD Ot Z87.448 SP PERSONAL HISTORY OF OTHER DISEASES OF UR SP 05/10/2018 JIGNA GOMEZ MD Ot Z88. 2 SP STATUS TO SULFONAMIDES STATUS SP 05/10/2018 JIGNA GOMEZ MD Ot Z88. 5 SP STATUS TO NARCOTIC AGENT STATUS SP 05/10/2018 JIGNA GOMEZ MD Ot Z88. 8 SP STATUS TO OTH DRUG/MEDS/BIOL SUB SP 05/10/2018 JIGNA GOMEZ MD Ot Z90. 49 SP ABSENCE OF OTHER SPECIFIED PART SP 05/10/2018 JIGNA GOMEZ MD Ot Z98.890 SP OTHER SPECIFIED POSTPROCEDURAL STATES SP 05/13/2018 JIGNA GOMEZ MD Ot R55 SP AND COLLAPSE SP 05/13/2018 JIGNA GOMEZ MD Ot Z79. 01 SP TERM (CURRENT) USE OF ANTICOAGULANT SP 05/13/2018 JIGNA GOMEZ MD Ot Z79. 82 SP TERM (CURRENT) USE OF ASPIRIN SP 05/13/2018 JIGNA GOMEZ MD Ot Z86.718 SP PERSONAL HISTORY OF OTHER VENOUS THROMBO SP 05/13/2018 JIGNA GOMEZ MD Ot Z87.448 SP PERSONAL HISTORY OF OTHER DISEASES OF UR SP 05/13/2018 JIGNA GOMEZ MD Ot Z88. 2 SP STATUS TO SULFONAMIDES STATUS SP 05/13/2018 JIGNA GOMEZ MD Ot Z88. 5 SP STATUS TO NARCOTIC AGENT STATUS SP 05/13/2018 JIGNA GOMEZ MD Ot Z88. 8 SP STATUS TO OTH DRUG/MEDS/BIOL SUB SP 05/13/2018 JIGNA GOMEZ MD Ot Z90. 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 07/16/2018 MATT LEON DO Ot F32.9 SP DEPRESSIVE DISORDER, SINGLE EPISOD SP 07/16/2018 MATT LEON DO Ot F41.9 SP DISORDER, UNSPECIFIED SP 07/16/2018 MATT LEON DO Ot G89.29 SP CHRONIC PAIN SP 07/16/2018 MATT LEON DO Ot R51 SP SP 07/16/2018 MATT LEON DO Ot Z79.01 SP TERM (CURRENT) USE OF ANTICOAGULANT SP 07/16/2018 MATT LEON DO Ot Z79.52 SP TERM (CURRENT) USE OF SYSTEMIC STER SP 07/16/2018 MATT LEON DO Ot Z86.69 SP HISTORY OF DIS OF THE NERVOUS S SP 07/16/2018 MATT LEON DO Ot Z86.718 SP HISTORY OF OTHER VENOUS THROMBO SP 07/16/2018 MATT LEON DO Ot Z87.448 SP HISTORY OF OTHER DISEASES OF UR SP 07/16/2018 MATT LEON DO Ot Z88.2 SP STATUS TO SULFONAMIDES STATUS SP 07/16/2018 MATT LEON DO Ot Z88.5 SP STATUS TO NARCOTIC AGENT STATUS SP 07/16/2018 TAHIR LEON DOA K Ot Z88.8 SP STATUS TO OTH DRUG/MEDS/BIOL SUB SP 07/16/2018 FARINA MATT Rebeca Ot Z98.890 SP SPECIFIED POSTPROCEDURAL STATES SP 07/17/2018 FARINA MATT Rebeca Ot 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 07/17/2018 [facility] MATT K Ot F32.9 SP DEPRESSIVE DISORDER, SINGLE EPISOD SP 07/17/2018 [facility] MATT K Ot F41.9 SP DISORDER, UNSPECIFIED SP 07/17/2018 [facility] MATT Rebeca Ot G89.29 SP CHRONIC PAIN SP 07/17/2018 [facility] MATT K Ot R51 SP SP 07/17/2018 [facility] MATT K Ot Z79.01 SP TERM (CURRENT) USE OF ANTICOAGULANT SP 07/17/2018 [facility] MATT K Ot Z79.52 SP TERM (CURRENT) USE OF SYSTEMIC STER SP 07/17/2018 [facility] MATT Rebeca Ot Z86.69 SP HISTORY OF DIS OF THE NERVOUS S SP 07/17/2018 [facility] MATT K Ot Z86.718 SP HISTORY OF OTHER VENOUS THROMBO SP 07/17/2018 [facility] MATT Rebeca Ot Z87.448 SP HISTORY OF OTHER DISEASES OF UR SP 07/17/2018 FARINA MATT Rebeca Ot Z88.2 SP STATUS TO SULFONAMIDES STATUS SP 07/17/2018 [facility] MATT Rebeca Ot Z88.5 SP STATUS TO NARCOTIC AGENT STATUS SP 07/17/2018 FARINA MATT Rebeca Ot Z88.8 SP STATUS TO OTH DRUG/MEDS/BIOL SUB SP 07/17/2018 FARINA MATT Rebeca Ot Z98.890 SP SPECIFIED POSTPROCEDURAL STATES SP 09/27/2018 MARAH BLOCK APRN Ot 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.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 FABRY (-DEXTER) DISEASE SP 09/27/2018 MARAH BLOCK APRN Ot F32 .9 SP DEPRESSIVE DISORDER, SINGLE EPISOD SP 09/27/2018 MARAH BLOCK APRN Ot F41 .9 SP DISORDER, UNSPECIFIED SP 09/27/2018 MARAH BLOCK APRN Ot G43.909 SP MIGRAINE, UNSP, NOT INTRACTABLE, WITHOUT SP 09/27/2018 MARAH BLOCK APRN Ot R10.31 SP RIGHT LOWER QUADRANT PAIN SP 09/27/2018 MARAH BLOCK APRN Ot R11 .2 SP WITH VOMITING, UNSPECIFIED SP 09/27/2018 MARAH BLOCK APRN Ot R19 .7 SP UNSPECIFIED SP 09/27/2018 MARAH BLOCK APRN Ot Z79.01 SP LONGTERM (CURRENT) USE OF ANTICOAGULANT SP 09/27/2018 MARAH BLOCK APRN Ot Z79.52 SP LONGTERM (CURRENT) USE OF SYSTEMIC STER SP 09/27/2018 MARAH BLOCK APRN Ot Z86.718 SP PERSONAL HISTORY OF OTHER VENOUS THROMBO SP 09/27/2018 MARAH BLOCK APRN Ot Z88 .2 SP STATUS TO SULFONAMIDES STATUS SP 09/27/2018 MARAH BLOCK APRN Ot Z88 .5 SP STATUS TO NARCOTIC AGENT STATUS SP 09/27/2018 MARAH BLOCK APRN Ot Z88 .8 SP STATUS TO [facility] DRUG/MEDS/BIOL SUB SP 09/27/2018 MARAH BLOCK APRN Ot Z98.890 SP OTHER SPECIFIED POSTPROCEDURAL STATES SP 09/29/2018 MARAH BLOCK APRN Ot 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.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 FABRY (-DEXTER) DISEASE SP 09/29/2018 MARAH BLOCK APRN Ot F32 .9 SP DEPRESSIVE DISORDER, SINGLE EPISOD SP 09/29/2018 MARAH BLOCK APRN Ot F41 .9 SP DISORDER, UNSPECIFIED SP 09/29/2018 MARAH BLOCK APRN Ot G43.909 SP MIGRAINE, UNSP, NOT INTRACTABLE, WITHOUT SP 09/29/2018 MARAH BLOCK APRN Ot R10.31 SP RIGHT LOWER QUADRANT PAIN SP 09/29/2018 MARAH BLOCK APRN Ot R11 .2 SP WITH VOMITING, UNSPECIFIED SP 09/29/2018 MARAH BLOCK APRN Ot R19 .7 SP UNSPECIFIED SP 09/29/2018 MARAH BLOCK APRN Ot Z79.01 SP LONGTERM (CURRENT) USE OF ANTICOAGULANT SP 09/29/2018 MARAH BLOCK APRN Ot Z79.52 SP SECURITIES TELLER (CURRENT) USE OF SYSTEMIC STER SP 09/29/2018 MARAH BLOCK APRN Ot Z86.718 SP PERSONAL HISTORY OF OTHER VENOUS THROMBO SP 09/29/2018 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 Ot Z88 .2 SP STATUS TO SULFONAMIDES STATUS SP 09/29/2018 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 Ot Z88 .5 SP STATUS TO NARCOTIC AGENT STATUS SP 09/29/2018 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 Ot Z88 .8 SP STATUS TO OTH DRUG/MEDS/BIOL SUB SP 09/29/2018 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 Ot Z98.890 SP OTHER SPECIFIED POSTPROCEDURAL STATES SP 11/08/2018 SATYA [employer]ENT Ot M25.861 SP OTHER SPECIFIED JOINT DISORDERS, RIGHT K SP 11/08/2018 [employer] AGENT Ot M71. 21 SP CYST OF POPLITEAL SPACE [HATHAWAY] SP 12/08/2018 EITAN MYERS A Final N76 .0 SP vaginitis SP 12/08/2018 EITAN MYERS Reason For Visit SP Encounter for gynecological examination (general) (routine) without SPabnormal findings SP 12/23/2018 SATYA MCGILLP Ot M25.861 SP OTHER SPECIFIED JOINT DISORDERS, RIGHT K SP 12/23/2018 [employer]YA [employer] AGENT Ot M71. 21 SP CYST OF POPLITEAL SPACE [HATHAWAY] SP 04/20/2019 SATYA [employer] SALES AGENT Ot M25.861 SP OTHER SPECIFIED JOINT DISORDERS, RIGHT K SP 04/20/2019 [employer]YA [employer] SAL[employer] AGENT Ot M71. 21 SP CYST OF POPLITEAL SPACE [HATHAWAY] SP 05/08/2019 SATYA [employer] SALES AGENT Ot M25.861 SP OTHER SPECIFIED JOINT DISORDERS, RIGHT K SP 05/08/2019 [employer] AGENT Ot M71. 21 SP CYST OF POPLITEAL SPACE [HATHAWAY] SP 05/08/2019 REYNALDO CALVERT, ASIA Henderson Ot F32. 9 SP DEPRESSIVE DISORDER, SINGLE EPISOD SP 05/08/2019 REYNALDO CALVERT, ASIA Henderson Ot F41. 9 SP DISORDER, UNSPECIFIED SP 05/08/2019 REYNALDO CALVERT, ASIA Henderson Ot G43.909 SP MIGRAINE, UNSP, NOT INTRACTABLE, WITHOUT SP 05/08/2019 REYNALDO CALVERT, ASIA Henderson Ot G62. 9 SP UNSPECIFIED SP 05/08/2019 REYNALDO CALVERT, ASIA Henderson Ot I82.4Z2 SP AC EMBLSM AND THOMBOS UNSP DEEP VEINS OF SP 05/08/2019 REYNALDO CALVERT, ASIA Beatriz Ot M79.605 SP PAIN IN LEFT LEG SP 05/08/2019 REYNALDO CALVERT, ASIA Henderson Ot Z86.711 SP PERSONAL HISTORY OF PULMONARY EMBOLISM SP 05/08/2019 REYNALDO CALVERT, ASIA Beatriz Ot Z88. 1 SP STATUS TO OTHER ANTIBIOTIC AGENT SP 05/08/2019 REYNALDO CALVERT, ASIA Henderson Ot Z88. 2 SP STATUS TO SULFONAMIDES STATUS SP 05/08/2019 REYNALDO CALVERT, ASIA Henderson Ot Z88. 5 SP STATUS TO NARCOTIC AGENT STATUS SP 05/11/2019 REYNALDO CALVERT, ASIA Henderson Ot F32. 9 SP DEPRESSIVE DISORDER, SINGLE EPISOD SP 05/11/2019 REYNALDO CALVERT, ASIA Henderson Ot F41. 9 SP DISORDER, UNSPECIFIED SP 05/11/2019 REYNALDO CALVERT, ASIA Henderson Ot G43.909 SP MIGRAINE, UNSP, NOT INTRACTABLE, WITHOUT SP 05/11/2019 REYNALDO CALVERT, ASIA Henderson Ot G62. 9 SP UNSPECIFIED SP 05/11/2019 REYNALDO CALVERT, ASIA Henderson Ot I82.4Z2 SP AC EMBLSM AND THOMBOS UNSP DEEP VEINS OF SP 05/11/2019 REYNALDO CALVERT, ASIA Beatriz Ot M79.605 SP PAIN IN LEFT LEG SP 05/11/2019 REYNALDO CALVERT, ASIA Henderson Ot Z86.711 SP PERSONAL HISTORY OF PULMONARY EMBOLISM SP 05/11/2019 REYNALDO CALVERT, ASIA Henderson Ot Z88. 1 SP STATUS TO OTHER ANTIBIOTIC AGENT SP 05/11/2019 REYNALDO CALVERT, ASIA Henderson Ot Z88. 2 SP STATUS TO SULFONAMIDES STATUS SP 05/11/2019 REYNALDO CALVERT, ASIA Henderson Ot Z88. 5 SP STATUS TO NARCOTIC AGENT STATUS SP 05/12/2019 REYNALDO CALVERT, ASIA Henderson Ot M71. 22 SP CYST OF POPLITEAL SPACE [HATHAWAY] SP 05/12/2019 REYNALDO CALVERT, ASIA Henderson Ot Z86.718 SP PERSONAL HISTORY OF OTHER VENOUS THROMBO SP 05/16/2019 REYNALDO CALVERT, ASIA Henderson Ot M71. 22 SP CYST OF POPLITEAL SPACE [HATHAWAY] SP 05/16/2019 REYNALDO CALVERT, ASIA Henderson Ot Z86.718 SP PERSONAL HISTORY OF OTHER VENOUS THROMBO SP Procedures There is no data. Results Test Result Range POS Complete blood count (CBC) with automate d white blood cell (WBC) differential - POS 12:35 Blood leukocytes automated count (number/volume) 10.1 10*3/uL POS 4.3-11.0 SP Blood erythrocytes automated count (number/volume) 5.15 10*6/uL SP 4.35-5.85 SP Venous blood hemoglobin measurement (mass/volume) 15.6 g/dL SP16.0 Blood hematocrit (volume fraction) 45 % 35-52 SP Automated erythrocyte mean corpuscular volume 87 [ foz_us] SP99 Automated erythrocyte mean corpuscular h emoglobin (mass per erythrocyte) SP 30 pg 25-34 SP Automated erythrocyte mean corpuscular h emoglobin concentration measurement SP 35 g/dL 32-36 SP Automated erythrocyte distribution width ratio 12. 6 % 10.0- SP Automated blood platelet count (count/volume) 243 10*3/uL SP400 Automated blood platelet mean volume measurement 10.4 [foz_us] SP 7.4-10.4 SP Automated blood neutrophils/100 leukocytes 81 % 42-75 SP Automated blood lymphocytes/100 leukocytes 13 % 12-44 SP Blood monocytes/100 leukocytes 5 % 0-12 SP Automated blood eosinophils/100 leukocytes 0 % 0-10 SP Automated blood basophils/100 leukocytes 0 % 0-10 SP Blood neutrophils automated count (number/volume) 8.2 10*3 SP7.8 Blood lymphocytes automated count (number/volume) 1.3 10*3 SP4.0 Blood monocytes automated count (number/volume) 0. 5 10*3 SP1.0 Automated eosinophil count 0.0 10*3/uL 0 .0-0.3 SP Automated blood basophil count (count/volume) 0.0 10*3/uL SP0.1 Serum or plasma choriogonadotropin (preg tracie test) detection - 09/23/17 12:35 POS Serum or plasma choriogonadotropin ( test) de tection NEGATIVE POS NEGATIVE SP Comprehensive metabolic panel - 09/23/17 12:35 POS Serum or plasma sodium measurement (moles/volume) 139 mmol/L SP 135-145 SP Serum or plasma potassium measurement (moles/volume) 3.1 mmol/L SP 3.6-5.0 SP Serum or plasma chloride measurement (moles/volume) 108 mmol/L SP 98-107 SP Carbon dioxide 16 mmol/L 21-32 SP Serum or plasma anion gap determination (moles/volume) 15 mmol/L SP 5-14 SP Serum or plasma urea nitrogen measurement (mass/volume ) 11 mg/dL SP 7-18 SP Serum or plasma creatinine measurement (mass/volume) 1.04 mg/dL SP 0.60-1.30 SP Serum or plasma urea nitrogen/creatinine mass ratio 11 NRG SP Serum or plasma creatinine measurement w ith calculation of estimated glomerular SP rate > NRG SP Serum or plasma glucose measurement (mass/volume) 134 mg/dL SP105 Serum or plasma calcium measurement (mass/volume) 9.8 mg/dL SP10.1 Serum or plasma total bilirubin measurement (mass/volu me) 1.1 mg/dL SP 0.1-1.0 SP Serum or plasma alkaline phosphatase yue surement (enzymatic activity/volume) SP 65 U/L 40-136 SP Serum or plasma aspartate aminotransfera se measurement (enzymatic SP 21 U/L 5-34 SP Serum or plasma alanine aminotransferase measurement (enzymatic activity/volume) SP 20 U/L 0-55 SP Serum or plasma protein measurement (mass/volume) 7.6 g/dL SP8.2 Serum or plasma albumin measurement (mass/volume) 4.7 g/dL SP4.5 Complete urinalysis with reflex to cultu re - 09/23/17 15:12 POS Urine color determination YELLOW NRG SP Urine clarity determination SLIGHTLY CLOUDY NRG SP Urine pH measurement by test strip 8 5-9 SP Specific gravity of urine by test strip 1.010 1.016-1.022 SP Urine protein assay by test strip, semi-quantitative NEGATIVE SP NEGATIVE SP Urine glucose detection by automated test strip NE GATIVE SP Erythrocytes detection in urine sediment by light micr oscopy 4+ SP NEGATIVE SP Urine ketones detection by automated test strip 3+ NEGATIVE SP Urine nitrite detection by test strip NEGATIVE NEGATIVE SP Urine total bilirubin detection by test strip NEGA TIVE SP Urine urobilinogen measurement by automated test strip (mass/volume) SP NORMAL SP Urine leukocyte esterase detection by dipstick 2+ NEGATIVE SP Automated urine sediment erythrocyte cou nt by microscopy (number/high power SP NONE NRG SP Automated urine sediment leukocyte count by microscopy (number/high power field) SP [HPF] NRG SP Bacteria detection in urine sediment by light microsco py MODERATE SP NRG SP Squamous epithelial cells detection in u rine sediment by light microscopy SP 25-50 NRG SP Crystals detection in urine sediment by light microsco py NONE SP NRG SP Casts detection in urine sediment by light microscopy NONE SP Mucus detection in urine sediment by light microscopy NEGATIVE SP NRG SP Complete urinalysis with reflex to culture NO NRG SP Automated blood complete blood count (he mogram) panel - 01/01/18 21:43 POS Blood leukocytes automated count (number/volume) 5.5 10*3/uL SP 4.3-11.0 SP Blood erythrocytes automated count (number/volume) 4.62 10*6/uL SP 4.35-5.85 SP Venous blood hemoglobin measurement (mass/volume) 14.4 g/dL SP16.0 Blood hematocrit (volume fraction) 42 % 35-52 SP Automated erythrocyte mean corpuscular volume 91 [ foz_us] SP99 Automated erythrocyte mean corpuscular h emoglobin (mass per erythrocyte) SP 31 pg 25-34 SP Automated erythrocyte mean corpuscular h emoglobin concentration measurement SP 34 g/dL 32-36 SP Automated erythrocyte distribution width ratio 13. 2 % 10.0- SP Automated blood platelet count (count/volume) 186 10*3/uL SP400 Automated blood platelet mean volume measurement 10.7 [foz_us] SP 7.4-10.4 SP Comprehensive metabolic panel - 01/01/18 21:43 POS Serum or plasma sodium measurement (moles/volume) 142 mmol/L SP 135-145 SP Serum or plasma potassium measurement (moles/volume) 3.8 mmol/L SP 3.6-5.0 SP Serum or plasma chloride measurement (moles/volume) 111 mmol/L SP 98-107 SP Carbon dioxide 19 mmol/L 21-32 SP Serum or plasma anion gap determination (moles/volume) 12 mmol/L SP 5-14 SP Serum or plasma urea nitrogen measurement (mass/volume ) 9 mg/dL SP 7-18 SP Serum or plasma creatinine measurement (mass/volume) 1.03 mg/dL SP 0.60-1.30 SP Serum or plasma urea nitrogen/creatinine mass ratio 9 NRG SP Serum or plasma creatinine measurement w ith calculation of estimated glomerular SP rate > NRG SP Serum or plasma glucose measurement (mass/volume) 91 mg/dL SP105 Serum or plasma calcium measurement (mass/volume) 9.3 mg/dL SP10.1 Serum or plasma total bilirubin measurement (mass/volu me) 0.6 mg/dL SP 0.1-1.0 SP Serum or plasma alkaline phosphatase yue surement (enzymatic activity/volume) SP 61 U/L 40-136 SP Serum or plasma aspartate aminotransfera se measurement (enzymatic SP 23 U/L 5-34 SP Serum or plasma alanine aminotransferase measurement (enzymatic activity/volume) SP 19 U/L 0-55 SP Serum or plasma protein measurement (mass/volume) 6.9 g/dL SP8.2 Serum or plasma albumin measurement (mass/volume) 4.4 g/dL SP4.5 Serum or plasma choriogonadotropin (preg tracie test) detection - 01/01/18 21:43 POS Serum or plasma choriogonadotropin ( test) de tection NEGATIVE POS NEGATIVE SP Complete blood count (CBC) with automate d white blood cell (WBC) differential - POS 20:40 Blood leukocytes automated count (number/volume) 5.5 10*3/uL POS 4.3-11.0 SP Blood erythrocytes automated count (number/volume) 4.55 10*6/uL SP 4.35-5.85 SP Venous blood hemoglobin measurement (mass/volume) 14.1 g/dL SP16.0 Blood hematocrit (volume fraction) 41 % 35-52 SP Automated erythrocyte mean corpuscular volume 91 [ foz_us] SP99 Automated erythrocyte mean corpuscular h emoglobin (mass per erythrocyte) SP 31 pg 25-34 SP Automated erythrocyte mean corpuscular h emoglobin concentration measurement SP 34 g/dL 32-36 SP Automated erythrocyte distribution width ratio 12. 8 % 10.0- SP Automated blood platelet count (count/volume) 191 10*3/uL SP400 Automated blood platelet mean volume measurement 10.7 [foz_us] SP 7.4-10.4 SP Automated blood neutrophils/100 leukocytes 45 % 42-75 SP Automated blood lymphocytes/100 leukocytes 46 % 12-44 SP Blood monocytes/100 leukocytes 7 % 0-12 SP Automated blood eosinophils/100 leukocytes 1 % 0-10 SP Automated blood basophils/100 leukocytes 1 % 0-10 SP Blood neutrophils automated count (number/volume) 2.5 10*3 SP7.8 Blood lymphocytes automated count (number/volume) 2.5 10*3 SP4.0 Blood monocytes automated count (number/volume) 0. 4 10*3 SP1.0 Automated eosinophil count 0.1 10*3/uL 0 .0-0.3 SP Automated blood basophil count (count/volume) 0.1 10*3/uL SP0.1 Comprehensive metabolic panel - 01/05/18 20:40 POS Serum or plasma sodium measurement (moles/volume) 140 mmol/L SP 135-145 SP Serum or plasma potassium measurement (moles/volume) 3.6 mmol/L SP 3.6-5.0 SP Serum or plasma chloride measurement (moles/volume) 110 mmol/L SP 98-107 SP Carbon dioxide 19 mmol/L 21-32 SP Serum or plasma anion gap determination (moles/volume) 11 mmol/L SP 5-14 SP Serum or plasma urea nitrogen measurement (mass/volume ) 9 mg/dL SP 7-18 SP Serum or plasma creatinine measurement (mass/volume) 1.06 mg/dL SP 0.60-1.30 SP Serum or plasma urea nitrogen/creatinine mass ratio 8 NRG SP Serum or plasma creatinine measurement w ith calculation of estimated glomerular SP rate > NRG SP Serum or plasma glucose measurement (mass/volume) 89 mg/dL SP105 Serum or plasma calcium measurement (mass/volume) 9.3 mg/dL SP10.1 Serum or plasma total bilirubin measurement (mass/volu me) 0.6 mg/dL SP 0.1-1.0 SP Serum or plasma alkaline phosphatase yue surement (enzymatic activity/volume) SP 52 U/L 40-136 SP Serum or plasma aspartate aminotransfera se measurement (enzymatic SP 46 U/L 5-34 SP Serum or plasma alanine aminotransferase measurement (enzymatic activity/volume) SP 37 U/L 0-55 SP Serum or plasma protein measurement (mass/volume) 6.9 g/dL SP8.2 Serum or plasma albumin measurement (mass/volume) 4.5 g/dL SP4.5 Serum or plasma troponin i.cardiac measu rement (mass/volume) - 01/05/18 20:40 POS Serum or plasma troponin i.cardiac measurement (mass/v olume) < ng/mL POS <0.30 SP Serum or plasma C reactive protein measu rement (mass/volume) - 01/05/18 20:40 POS Serum or plasma C reactive protein measurement (mass/v olume) 0.26 POS 0.00-0.50 SP Complete urinalysis with reflex to cultu re - 05/07/18 17:50 POS Urine color determination YELLOW NRG SP Urine clarity determination CLEAR NR G SP Urine pH measurement by test strip 7 5-9 SP Specific gravity of urine by test strip 1.010 1.016-1.022 SP Urine protein assay by test strip, semi-quantitative NEGATIVE SP NEGATIVE SP Urine glucose detection by automated test strip NE GATIVE SP Erythrocytes detection in urine sediment by light micr oscopy NEGATIVE SP NEGATIVE SP Urine ketones detection by automated test strip NE GATIVE SP Urine nitrite detection by test strip NEGATIVE NEGATIVE SP Urine total bilirubin detection by test strip NEGA TIVE SP Urine urobilinogen measurement by automated test strip (mass/volume) SP NORMAL SP Urine leukocyte esterase detection by dipstick NEG ATIVE SP Automated urine sediment erythrocyte cou nt by microscopy (number/high power SP NONE NRG SP Automated urine sediment leukocyte count by microscopy (number/high power field) SP NONE NRG SP Bacteria detection in urine sediment by light microsco py NONE SP NRG SP Squamous epithelial cells detection in u rine sediment by light microscopy SP 5-10 NRG SP Crystals detection in urine sediment by light microsco py NONE SP NRG SP Casts detection in urine sediment by light microscopy NONE SP Mucus detection in urine sediment by light microscopy NEGATIVE SP NRG SP Complete urinalysis with reflex to culture NO NRG SP Urine drug screening test - 05/07/18 17: 50 POS Urine phencyclidine detection by screening method NEGATIVE SP Urine benzodiazepines detection by screening method NEGATIVE SP NEGATIVE SP Urine cocaine detection NEGATIVE NEGATI VE SP Urine amphetamines detection by screening method N EGATIVE SP Urine methamphetamine detection by screening method NEGATIVE SP NEGATIVE SP Urine cannabinoids detection by screening method N EGATIVE SP Urine opiates detection by screening method NEGATI VE SP Urine barbiturates detection NEGATIVE N EGATIVE SP Screening urine tricyclic antidepressants detection NEGATIVE SP NEGATIVE SP Urine methadone detection by screening method NEGA TIVE SP Urine oxycodone detection NEGATIVE NEGA TIVE SP Urine propoxyphene detection NEGATIVE N EGATIVE SP Complete blood count (CBC) with automate d white blood cell (WBC) differential - POS 18:40 Blood leukocytes automated count (number/volume) 5.9 10*3/uL POS 4.3-11.0 SP Blood erythrocytes automated count (number/volume) 4.46 10*6/uL SP 4.35-5.85 SP Venous blood hemoglobin measurement (mass/volume) 13.5 g/dL SP16.0 Blood hematocrit (volume fraction) 40 % 35-52 SP Automated erythrocyte mean corpuscular volume 90 [ foz_us] SP99 Automated erythrocyte mean corpuscular h emoglobin (mass per erythrocyte) SP 30 pg 25-34 SP Automated erythrocyte mean corpuscular h emoglobin concentration measurement SP 34 g/dL 32-36 SP Automated erythrocyte distribution width ratio 13. 7 % 10.0- SP Automated blood platelet count (count/volume) 199 10*3/uL SP400 Automated blood platelet mean volume measurement 10.2 [foz_us] SP 7.4-10.4 SP Automated blood neutrophils/100 leukocytes 54 % 42-75 SP Automated blood lymphocytes/100 leukocytes 38 % 12-44 SP Blood monocytes/100 leukocytes 5 % 0-12 SP Automated blood eosinophils/100 leukocytes 1 % 0-10 SP Automated blood basophils/100 leukocytes 1 % 0-10 SP Blood neutrophils automated count (number/volume) 3.2 10*3 SP7.8 Blood lymphocytes automated count (number/volume) 2.3 10*3 SP4.0 Blood monocytes automated count (number/volume) 0. 3 10*3 SP1.0 Automated eosinophil count 0.1 10*3/uL 0 .0-0.3 SP Automated blood basophil count (count/volume) 0.0 10*3/uL SP0.1 Serum or plasma choriogonadotropin (preg tracie test) detection - 05/07/18 18:40 POS Serum or plasma choriogonadotropin ( test) de tection NEGATIVE POS NEGATIVE SP Comprehensive metabolic panel - 05/07/18 18:40 POS Serum or plasma sodium measurement (moles/volume) 139 mmol/L SP 135-145 SP Serum or plasma potassium measurement (moles/volume) 3.5 mmol/L SP 3.6-5.0 SP Serum or plasma chloride measurement (moles/volume) 111 mmol/L SP 98-107 SP Carbon dioxide 20 mmol/L 21-32 SP Serum or plasma anion gap determination (moles/volume) 8 mmol/L SP 5-14 SP Serum or plasma urea nitrogen measurement (mass/volume ) 12 mg/dL SP 7-18 SP Serum or plasma creatinine measurement (mass/volume) 0.94 mg/dL SP 0.60-1.30 SP Serum or plasma urea nitrogen/creatinine mass ratio 13 NRG SP Serum or plasma creatinine measurement w ith calculation of estimated glomerular SP rate > NRG SP Serum or plasma glucose measurement (mass/volume) 87 mg/dL SP105 Serum or plasma calcium measurement (mass/volume) 9.1 mg/dL SP10.1 Serum or plasma total bilirubin measurement (mass/volu me) 0.5 mg/dL SP 0.1-1.0 SP Serum or plasma alkaline phosphatase yue surement (enzymatic activity/volume) SP 54 U/L 40-136 SP Serum or plasma aspartate aminotransfera se measurement (enzymatic SP 12 U/L 5-34 SP Serum or plasma alanine aminotransferase measurement (enzymatic activity/volume) SP 8 U/L 0-55 SP Serum or plasma protein measurement (mass/volume) 6.7 g/dL SP8.2 Serum or plasma albumin measurement (mass/volume) 4.2 g/dL SP4.5 CALCIUM CORRECTED 8.9 mg/dL 8.5-10.1 SP THYROID STIMULATING HORMONE - 05/07/18 1 8:40 POS THYROID STIMULATING HORMONE 1.08 u[iU]/mL 0.35-4.94 SP Fibrin D-dimer FEU measurement in platel et poor plasma (mass/volume) - 05/07/18 POS Fibrin D-dimer FEU measurement in platelet poor plasma (mass/volume) POS ug/mL 0.00-0.49 SP Serum or plasma C reactive protein measu rement (mass/volume) - 05/07/18 18:40 POS Serum or plasma C reactive protein measurement (mass/v olume) 0.23 POS 0.00-0.50 SP Complete blood count (CBC) with automate d white blood cell (WBC) differential - POS 23:48 Blood leukocytes automated count (number/volume) 6.0 10*3/uL POS 4.3-11.0 SP Blood erythrocytes automated count (number/volume) 4.82 10*6/uL SP 4.35-5.85 SP Venous blood hemoglobin measurement (mass/volume) 14.5 g/dL SP16.0 Blood hematocrit (volume fraction) 43 % 35-52 SP Automated erythrocyte mean corpuscular volume 90 [ foz_us] SP99 Automated erythrocyte mean corpuscular h emoglobin (mass per erythrocyte) SP 30 pg 25-34 SP Automated erythrocyte mean corpuscular h emoglobin concentration measurement SP 34 g/dL 32-36 SP Automated erythrocyte distribution width ratio 12. 9 % 10.0- SP Automated blood platelet count (count/volume) 218 10*3/uL SP400 Automated blood platelet mean volume measurement 10.3 [foz_us] SP 7.4-10.4 SP Automated blood neutrophils/100 leukocytes 47 % 42-75 SP Automated blood lymphocytes/100 leukocytes 45 % 12-44 SP Blood monocytes/100 leukocytes 7 % 0-12 SP Automated blood eosinophils/100 leukocytes 2 % 0-10 SP Automated blood basophils/100 leukocytes 1 % 0-10 SP Blood neutrophils automated count (number/volume) 2.8 10*3 SP7.8 Blood lymphocytes automated count (number/volume) 2.7 10*3 SP4.0 Blood monocytes automated count (number/volume) 0. 4 10*3 SP1.0 Automated eosinophil count 0.1 10*3/uL 0 .0-0.3 SP Automated blood basophil count (count/volume) 0.0 10*3/uL SP0.1 Serum or plasma choriogonadotropin (preg tracie test) detection - 07/15/18 23:48 POS Serum or plasma choriogonadotropin ( test) de tection NEGATIVE POS NEGATIVE SP Serum heterophile antibody titer - 07/15 23:48 POS Serum heterophile antibody titer NEGATIVE NEGATIVE SP Comprehensive metabolic panel - 07/15/18 23:48 POS Serum or plasma sodium measurement (moles/volume) 141 mmol/L SP 135-145 SP Serum or plasma potassium measurement (moles/volume) 3.7 mmol/L SP 3.6-5.0 SP Serum or plasma chloride measurement (moles/volume) 112 mmol/L SP 98-107 SP Carbon dioxide 20 mmol/L 21-32 SP Serum or plasma anion gap determination (moles/volume) 9 mmol/L SP 5-14 SP Serum or plasma urea nitrogen measurement (mass/volume ) 14 mg/dL SP 7-18 SP Serum or plasma creatinine measurement (mass/volume) 1.09 mg/dL SP 0.60-1.30 SP Serum or plasma urea nitrogen/creatinine mass ratio 13 NRG SP Serum or plasma creatinine measurement w ith calculation of estimated glomerular SP rate > NRG SP Serum or plasma glucose measurement (mass/volume) 90 mg/dL SP105 Serum or plasma calcium measurement (mass/volume) 9.4 mg/dL SP10.1 Serum or plasma total bilirubin measurement (mass/volu me) 0.5 mg/dL SP 0.1-1.0 SP Serum or plasma alkaline phosphatase yue surement (enzymatic activity/volume) SP 50 U/L 40-136 SP Serum or plasma aspartate aminotransfera se measurement (enzymatic SP 14 U/L 5-34 SP Serum or plasma alanine aminotransferase measurement (enzymatic activity/volume) SP 12 U/L 0-55 SP Serum or plasma protein measurement (mass/volume) 6.4 g/dL SP8.2 Serum or plasma albumin measurement (mass/volume) 4.4 g/dL SP4.5 CALCIUM CORRECTED 9.1 mg/dL 8.5-10.1 SP Magnesium - 07/15/18 23:48 POS Magnesium 2.7 mg/dL 1.8-2.4 SP PT panel in platelet poor plasma by coag ulation assay - 07/15/18 23:48 POS Prothrombin time (PT) in platelet poor plasma by coagu lation assay SP s 12.2-14.7 SP INR in platelet poor plasma or blood by coagulation as say 1.0 SP 0.8-1.4 SP Activated partial thromboplastin time (a PTT) in platelet poor plasma POS assay - 07/15/18 23:48 Activated partial thromboplastin time (a PTT) in platelet poor plasma POS assay 26 s 24-35 SP Urine drug screening test - 07/15/18 23: 52 POS Urine phencyclidine detection by screening method NEGATIVE SP Urine benzodiazepines detection by screening method NEGATIVE SP NEGATIVE SP Urine cocaine detection NEGATIVE NEGATI VE SP Urine amphetamines detection by screening method N EGATIVE SP Urine methamphetamine detection by screening method NEGATIVE SP NEGATIVE SP Urine cannabinoids detection by screening method N EGATIVE SP Urine opiates detection by screening method NEGATI VE SP Urine barbiturates detection NEGATIVE N EGATIVE SP Screening urine tricyclic antidepressants detection NEGATIVE SP NEGATIVE SP Urine methadone detection by screening method NEGA TIVE SP Urine oxycodone detection NEGATIVE NEGA TIVE SP Urine propoxyphene detection NEGATIVE N EGATIVE SP Influenza virus A and B antigen detectio n - 07/15/18 23:52 POS FLU RESULT NEGATIVE FOR INFLUENZA A AND B ANTIGENS BY IA SP Complete urinalysis with reflex to cultu re - 09/27/18 19:22 POS Urine color determination YELLOW NRG SP Urine clarity determination SLIGHTLY CLOUDY NRG SP Urine pH measurement by test strip 5 5-9 SP Specific gravity of urine by test strip 1.025 1.016-1.022 SP Urine protein assay by test strip, semi-quantitative NEGATIVE SP NEGATIVE SP Urine glucose detection by automated test strip NE GATIVE SP Erythrocytes detection in urine sediment by light micr oscopy NEGATIVE SP NEGATIVE SP Urine ketones detection by automated test strip NE GATIVE SP Urine nitrite detection by test strip NEGATIVE NEGATIVE SP Urine total bilirubin detection by test strip NEGA TIVE SP Urine urobilinogen measurement by automated test strip (mass/volume) 1 SPmg/dL NORMAL SP Urine leukocyte esterase detection by dipstick 1+ NEGATIVE SP Automated urine sediment erythrocyte cou nt by microscopy (number/high power SP NONE NRG SP Automated urine sediment leukocyte count by microscopy (number/high power field) SP RARE NRG SP Bacteria detection in urine sediment by light microsco py TRACE SP NRG SP Squamous epithelial cells detection in u rine sediment by light microscopy SP 5-10 NRG SP Crystals detection in urine sediment by light microsco py PRESENT SP NRG SP Casts detection in urine sediment by light microscopy NONE SP Mucus detection in urine sediment by light microscopy SMALL SP NRG SP Complete urinalysis with reflex to culture NO NRG SP Calcium oxalate crystals detection in ur ine sediment by light microscopy SP MODERATE NRG SP Serum or plasma choriogonadotropin (preg tracie test) detection - 09/27/18 19:28 POS Serum or plasma choriogonadotropin ( test) de tection NEGATIVE POS NEGATIVE SP Complete blood count (CBC) with automate d white blood cell (WBC) differential - POS 19:28 Blood leukocytes automated count (number/volume) 5.3 10*3/uL POS 4.3-11.0 SP Blood erythrocytes automated count (number/volume) 4.85 10*6/uL SP 4.35-5.85 SP Venous blood hemoglobin measurement (mass/volume) 14.4 g/dL SP16.0 Blood hematocrit (volume fraction) 44 % 35-52 SP Automated erythrocyte mean corpuscular volume 91 [ foz_us] SP99 Automated erythrocyte mean corpuscular h emoglobin (mass per erythrocyte) SP 30 pg 25-34 SP Automated erythrocyte mean corpuscular h emoglobin concentration measurement SP 33 g/dL 32-36 SP Automated erythrocyte distribution width ratio 14. 0 % 10.0- SP Automated blood platelet count (count/volume) 225 10*3/uL SP400 Automated blood platelet mean volume measurement 11.1 [foz_us] SP 7.4-10.4 SP Automated blood neutrophils/100 leukocytes 45 % 42-75 SP Automated blood lymphocytes/100 leukocytes 44 % 12-44 SP Blood monocytes/100 leukocytes 8 % 0-12 SP Automated blood eosinophils/100 leukocytes 3 % 0-10 SP Automated blood basophils/100 leukocytes 1 % 0-10 SP Blood neutrophils automated count (number/volume) 2.4 10*3 SP7.8 Blood lymphocytes automated count (number/volume) 2.3 10*3 SP4.0 Blood monocytes automated count (number/volume) 0. 4 10*3 SP1.0 Automated eosinophil count 0.1 10*3/uL 0 .0-0.3 SP Automated blood basophil count (count/volume) 0.0 10*3/uL SP0.1 Comprehensive metabolic panel - 09/27/18 19:28 POS Serum or plasma sodium measurement (moles/volume) 141 mmol/L SP 135-145 SP Serum or plasma potassium measurement (moles/volume) 3.9 mmol/L SP 3.6-5.0 SP Serum or plasma chloride measurement (moles/volume) 110 mmol/L SP 98-107 SP Carbon dioxide 21 mmol/L 21-32 SP Serum or plasma anion gap determination (moles/volume) 10 mmol/L SP 5-14 SP Serum or plasma urea nitrogen measurement (mass/volume ) 9 mg/dL SP 7-18 SP Serum or plasma creatinine measurement (mass/volume) 1.04 mg/dL SP 0.60-1.30 SP Serum or plasma urea nitrogen/creatinine mass ratio 9 NRG SP Serum or plasma creatinine measurement w ith calculation of estimated glomerular SP rate > NRG SP Serum or plasma glucose measurement (mass/volume) 65 mg/dL SP105 Serum or plasma calcium measurement (mass/volume) 9.4 mg/dL SP10.1 Serum or plasma total bilirubin measurement (mass/volu me) 0.5 mg/dL SP 0.1-1.0 SP Serum or plasma alkaline phosphatase yue surement (enzymatic activity/volume) SP 66 U/L 40-136 SP Serum or plasma aspartate aminotransfera se measurement (enzymatic SP 17 U/L 5-34 SP Serum or plasma alanine aminotransferase measurement (enzymatic activity/volume) SP 10 U/L 0-55 SP Serum or plasma protein measurement (mass/volume) 7.0 g/dL SP8.2 Serum or plasma albumin measurement (mass/volume) 4.4 g/dL SP4.5 CALCIUM CORRECTED 9.1 mg/dL 8.5-10.1 SP GC/CHLAMYDIA (SWAB OR URINE)-RAPID - 14:11 POS CHLAMYDIA TRACHOMATIS RNA, TMA NOT DETECTED NOT DETECTED SP NEISSERIA GONORRHOEAE RNA, TMA NOT DETECTED NOT DETECTED SP COMMENT NRG SP CULTURE, URINE - 11/29/18 14:11 POS CULTURE, URINE, ROUTINE SEE NOTE NRG SP Whole blood basic metabolic panel - 08/25 11:53 POS Serum or plasma sodium measurement (moles/volume) 139 mmol/L SP 135-145 SP Serum or plasma potassium measurement (moles/volume) 4.1 mmol/L SP 3.6-5.0 SP Serum or plasma chloride measurement (moles/volume) 111 mmol/L SP 98-107 SP Carbon dioxide 18 mmol/L 21-32 SP Serum or plasma anion gap determination (moles/volume) 10 mmol/L SP 5-14 SP Serum or plasma urea nitrogen measurement (mass/volume ) 9 mg/dL SP 7-18 SP Serum or plasma creatinine measurement (mass/volume) 1.09 mg/dL SP 0.60-1.30 SP Serum or plasma urea nitrogen/creatinine mass ratio 8 NRG SP Serum or plasma creatinine measurement w ith calculation of estimated glomerular SP rate 60 NRG SP Serum or plasma glucose measurement (mass/volume) 92 mg/dL SP105 Serum or plasma calcium measurement (mass/volume) 9.1 mg/dL SP10.1 Fibrin D-dimer FEU measurement in platel et poor plasma (mass/volume) - 05/08/19 POS Fibrin D-dimer FEU measurement in platelet poor plasma (mass/volume) POS ug/mL 0.00-0.49 SP Encounters ACCT No. Visit Date/Time Discharge Status POS Pt. Type Provider Facility Loc./Un it POS Complaint POS [id number] 05/03/2019 17:40:00 05/03/2019 23:59: 59 CLS SP Outpatient NARA YAO [facility] SP [id number] 11/29/2018 12:30:00 Document SPRegistration SP [id number] 05/10/2019 07:46:00 23:59:59 SP CLS Outpatient ASIA JACOBS MD [facility] RAD L LE SWELLING,HX OF DVT SP [id number] 05/08/2019 11:21:00 019 16:06:00 SP DIS Emergency ASIA JACOBS MD [facility] ER L LEG PAIN/SWELLING, HX OF D VT SP [id number] 11/05/2018 12:21:00 23:59:59 SP CLS Outpatient SATYA MCGILL [facility] RAD ACUTE TEAR OF MEDIAL MENISCU S SP [id number] 09/27/2018 19:15:00 019 21:22:00 SP DIS Emergency 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 [facility] ER ABD PAIN SP [id number] 07/15/2018 23:01:00 019 01:59:00 SP DIS Emergency EDWARD DOMATT K [facility] ER HEADACHE SP [id number] 05/07/2018 16:55:00 018 20:34:00 SP DIS Emergency JIGNA GOMEZ MD [facility] ER HAVING FAINTING SPELLS SP [id number] 01/05/2018 19:54:00 018 22:01:00 SP DIS Emergency JIGNA GOMEZ MD [facility] ER BLOOD CLOTS/SOB/CP/DRY COUGH SP [id number] 01/01/2018 19:44:00 018 00:10:00 SP DIS Emergency JIGNA GOMEZ MD [facility] ER L LEG BLOOD CLOTS/SWELLING SP [id number] 09/23/2017 12:34:00 018 16:14:00 SP DIS Emergency BRETT CHIN MD [facility] ER VOMITING,WHALEN/DEHYDRAT ED SP [id number] 12/08/2018 14:00:00 9 23:59:59 SP DIS Outpatient EITAN MYERS [facility] [id number] 11/30/2018 13:09:35 9 23:59:[address] [facility] [id number] 01/05/2019 02:00:45 SP Registration SP
--- OUTSIDE RECORDS SUMMARY | 2019-05-31 23:21 | XMS REPORT ---
Author Author Migration, Doctor POS Organization [facility] SP Address Unknown SP Phone Unavailable SP Care Team Providers Care Surgical Device Sales Representative Name Role Phone POS Migration, Doctor Unavailable Unavailable SP PROBLEMS Type Condition ICD9-CM Code ISH95-FB Code Onset Dates Condition S tatus SNOMED POS Problem Supervision of normal first V22.0 Active [id number] POS Problem Seasonal allergic rhinitis due to other allergic trigger J30.89 SP [id number] SP Problem Depressive disorder, not elsewhere classified F32. 9 Active [id number] SP Problem Generalized anxiety disorder F41.1 A ctive [id number] SP ALLERGIES No Information ENCOUNTERS Encounter Location Date Diagnosis POS [facility] [address] [facility] [id number] [address] [place] [address] SP November, Burn from the sun L55.9 and Seasonal allergic rhinitis due to SP allergic trigger J30.89 [facility] [address] [facility] [id number] [address] [place] [address] SP Aug, Acute bronchitis, unspecifie d organism J20.9 SP [facility] [address] [facility] [id number] [address] [place] [address] SP Aug, Pneumonia of right upper lob e due to infectious organism J18.1 [facility] [address] [facility] [id number] [address] [place] [address] SP Mar, Acute nasopharyngitis J00 SP [facility] [address] [facility] [id number] [address] [place] [phone] SP November, Generalized anxiety disorder F41.1 and Depressive disorder, not SP classified F32.9 [facility] [address] [facility] [id number] [address] [place] [phone] SP Oct, SP [facility] [address] [facility] [id number] [address] [place] [phone] SP Oct, [place] [id number] [id number] [address] [place] [phone] SP Jul, SP [facility] [address] [id number] [address] [place] [phone] SP Jul, SP [facility] [address] [id number] [address] [place] [phone] SP Jun, SP [facility] [address] [id number] [address] [place] [phone] SP Jun, SP [facility] [address] [id number] [address] [place] [phone] SP May, SP [facility] [address] [id number] [address] [place] [phone] SP May, SP [facility] [address] [id number] [address] [place] [phone] SP May, 2012 SP [facility] [address] [id number] [address] [place] [phone] SP May, SP [facility] [address] [id number] [address] [place] [phone] SP Apr, SP [facility] [address] [id number] [address] [place] [phone] SP Feb, SP IMMUNIZATIONS No Known Immunizations SOCIAL HISTORY Never Assessed REASON FOR VISIT EMR-[facility] PLAN OF CARE VITAL SIGNS MEDICATIONS Unknown [...]
== END 2019-05-08 16:06 | disposition home or self-care (01) ==
LOC: EDUNIT# 11:20 → ER 11:21
DX: I82.4Z2 Acute embolism and thrombosis of unspecified deep veins of left distal lower extremity (principal); G43.909 Migraine, unspecified, not intractable, without status migrainosus; G62.9 Polyneuropathy, unspecified; F41.9 Anxiety disorder, unspecified; F32.9 Major depressive disorder, single episode, unspecified; Z86.711 Personal history of pulmonary embolism; Z88.5 Allergy status to narcotic agent; Z88.2 Allergy status to sulfonamides; Z88.1 Allergy status to other antibiotic agents
CPT/HCPCS: 36415; 71275; 80048; 84703; 85379

== ENCOUNTER → 2019-05-10 | Outpatient (CLI) | payer BC, MEDICAID ==
[~2019-05-10] MED LIST changes: +BENZ-36; +BUPR150T14; +CNC1KV; +DULO30CA49; +GABA-488
--- NOTE | 2019-05-10 09:21 | Diagnostic Imaging Report ---
INDICATION: Left lower extremity swelling. COMPARISON: None. TECHNIQUE: Duplex, lorenz-scale and color-flow imaging of the left lower extremity venous system was performed. FINDINGS: The common femoral vein, superficial femoral vein, profunda femoris, and popliteal veins are normal. These vessels show normal compressibility, color flow, and doppler augmentation. The deep calf veins, although not very well seen, demonstrate no distinct intraluminal thrombus. Anechoic Jordan's cyst is noted and measures 5.3 x 1.7 x 2.7 cm. IMPRESSION: 1. No evidence of DVT in the left lower extremity. 2. Jordan's cyst. Dictated by: Dictated on workstation # [id number]
== END ==
LOC: RAD 07:46
PROVIDERS: ATTEND Emergency Medicine
DX: M71.22 Synovial cyst of popliteal space [Baker], left knee (principal); Z86.718 Personal history of other venous thrombosis and embolism

== ENCOUNTER → 2019-12-08 | Outpatient (CLI) | payer BC, MEDICAID ==
--- NOTE | 2019-12-08 15:00 | Diagnostic Imaging Report ---
EXAMINATION: Magnetic resonance imaging of the left ankle without contrast. DATE: December 08, 2019. COMPARISON: None. HISTORY: 29-year-old female, left ankle pain. TECHNIQUE: Magnetic Resonance Imaging sequences were performed of the ankle without contrast. FINDINGS: TENDONS AND LIGAMENTS: The Achilles tendon is intact. The posterior flexor tendons (tibialis posterior, flexor digitorum longus, flexor hallucis longus) are intact. The peroneal tendons (peroneus longus and peroneus brevis) are intact. The anterior extensor tendons (tibialis anterior, extensor hallucis longus, and extensor digitorum longus tendons) are intact. The anterior and posterior syndesmotic ligaments are intact. The anterior talofibular, posterior talofibular, calcaneofibular, and deltoid ligaments are intact. The plantar fascia is intact. JOINTS: The ankle mortise is intact. The subtalar and visualized joints of the mid-foot are intact. BONE: There is edema-like signal in the lateral aspect of the cuboid, perhaps best illustrated on sagittal STIR sequence image 15 and axial STIR sequence image 20 and adjacent sequential images. There is no identified fracture line. The edema is not adjacent to the site of passage of the peroneus longus tendon. The additional bone marrow signal evaluation is unremarkable. BURSAE AND SOFT TISSUES: The bursae and soft tissues surrounding the ankle are unremarkable. IMPRESSION: 1. Edema-like signal in the lateral cuboid without identified fracture line. Differential diagnostic considerations would include a bone contusion or potentially stress related marrow edema. There is no evidence of an acute fracture. There is no evidence of osteonecrosis. 2. Intact ankle ligaments and tendons. 3. Unremarkable joint evaluation. Dictated by: Dictated on workstation # [id number]
== END ==
LOC: RAD 13:17
PROVIDERS: ATTEND Nurse Practitioner
DX: S86.322A Laceration of muscle(s) and tendon(s) of peroneal muscle group at lower leg level, left leg, initial encounter (principal); X58.XXXA Exposure to other specified factors, initial encounter
CPT/HCPCS: 73721

== ENCOUNTER 2020-04-19 18:52 | Emergency (ER) | payer BC ==
[~2020-04-19] VITALS: Ht 167.7 cm; Wt 73.4 kg
[2020-04-19 19:20] LABS: BILIRUBIN,URINE NEGATIVE (NEGATIVE); CLARITY,URINE CLEAR; COLOR,URINE YELLOW; GLUCOSE, URINE (UA) NEGATIVE (NEGATIVE); KETONES,URINE NEGATIVE (NEGATIVE); LEUKOCYTE ESTERASE ,URINE NEGATIVE (NEGATIVE); NITRITE,URINE NEGATIVE (NEGATIVE); PROTEIN,URINE NEGATIVE (NEGATIVE)
[2020-04-19] MEDS ORDERED: NS IV 1000 ML 1,000 ML IV SCH (19:24)
[2020-04-19 19:26] LABS: BACTERIA,URINE TRACE /HPF
[2020-04-19] MEDS ORDERED: ONDANSETRON 4 MG/2 ML (SDV) Z0FRAN IVP ONE (19:30)
[2020-04-19 19:35] LABS: BASOPHILS % (AUTO) 1 % (0-10); EOSINOPHILS % (AUTO) 1 % (0-10); HEMATOCRIT 40 % (35-52); HEMOGLOBIN 13.2 g/dL (11.5-16.0); LYMPHOCYTES # (AUTO) 1.4 10^3/uL (1.0-4.0); LYMPHOCYTES % (AUTO) 23 % (12-44); MEAN CORPUSCULAR HEMOGLOBIN 31 pg (25-34); MEAN CORPUSCULAR HGB CONC 33 g/dL (32-36); MEAN CORPUSCULAR VOLUME 92 fL (80-99); MONOCYTES # (AUTO) 0.3 10^3/uL (0.0-1.0); MONOCYTES % (AUTO) 5 % (0-12); NEUTROPHILS # (AUTO) 4.4 10^3/uL (1.8-7.8); NEUTROPHILS % (AUTO) 70 % (42-75); PLATELET COUNT 194 10^3/uL (130-400); WHITE BLOOD COUNT 6.2 10^3/uL (4.3-11.0)
--- NOTE | 2020-04-19 20:07 | ED GI ---
General Chief Complaint: Abdominal/GI Problems Stated Complaint: LOWER ABD PAIN/10 WEEKS /INABILITY TO EAT Nursing Triage Note: C/O RIGHT FLANK PAIN WELL LOWER ABD PAIN, +NAUSEA, VOMITING X3, CONSTIPATION X3 DAYS. TOOK MIRALAX X3 DAYS AGO. DENIES ANY RESPIRATORY SX OR FEVER. Sepsis Screen: No Definite Risk History of Present Illness Date Seen by Provider: Apr 19, 2020 Time Seen by Provider: 19:20 Initial Comments 30 -year-old female presents for nausea, constipation 3 days, 10 weeks gestation, vomiting for approximately 2 days and concerns with a bowel obstruction. She is having trace right flank pain. She was seen by Dr. Araya's office last week for a UA. She is waiting culture results. She denies any vaginal discharge or spotting. She is taking a needle vitamin daily. This is her third . She has been drinking Pedialyte and water no solid food intake for approximately 2 days. Timing/Duration: 3-4 Days Severity/Quality: Mild Location: Flank, Periumbilical Radiation: No Radiation Associated Symptoms: No Fever/Chills; Fatigue, Nausea/Vomiting Allergies and Home Medications Allergies Coded Allergies: hydrocodone (Verified Allergy, Unknown, 09/23/17) sulfamethoxazole (Verified Allergy, Unknown, 09/23/17) trimethoprim (Verified Allergy, Unknown, 09/23/17) Home Medications Ondansetron 4 Mg Tab.rapdis, 4 MG PO Q6H PRN for NAUSEA/VOMITING Prescribed by: RAUL CONTRERAS on 04/19/202007 Patient Home Medication List Home Medication List Reviewed: Yes Review of Systems Review of Systems Constitutional: see HPI, weakness Gastrointestinal: See HPI, Abdominal Pain, Constipated, Nausea, Poor Appetite All Other Systems Reviewed Negative Unless Noted: Yes Past Yqivjun-Qhfzsy-Vqpdnz Hx Past Med/Social Hx: Reviewed Nursing Past Med/Soc Hx Patient Social History Alcohol Use: Denies Use Recreational Drug Use: No 2nd Hand Smoke Exposure: No Recent Foreign Travel: No Contact w/Someone Who Travel: No Recent Infectious Disease Expo: No Recent Hopitalizations: No Physical Abuse: No Sexual Abuse: No Mistreated: No Fear: No Immunizations Up To Date Tetanus Booster (TDap): Unknown PED Vaccines UTD: Yes Date of Influenza Vaccine: Mar 22, 2019 Seasonal Allergies Seasonal Allergies: No Past Medical History Surgeries: Yes (L KNEE SCOPE X7; KIDNEY BX; LUMBAR PUNCTURE W/BLOOD PCH: R/CARPAL TUNNEL) Gallbladder, Orthopedic Respiratory: No Cardiac: Yes (HX OF SINUS TACH) Deep Vein Thrombosis Neurological: Yes Headaches /Migraines, Neuropathy : Yes Expected Date of Delivery: November 09, 2020 Last Menstrual Period: Jan 04, 2020 Hx : 3 Hx Para: 2 Hx Total # of Abortions (Sp): 0 Female Reproductive Disorders: Denies Genitourinary: Yes (RENAL INSUFFICIENCY) Gastrointestinal: No Musculoskeletal: Yes Degenerate Disk Disease, Chronic Back Pain Endocrine: Yes (FABRY'S DISEASE) HEENT: No Cancer: No Psychosocial: Yes Sleep Difficulties, Anxiety, Depression Integumentary: No Blood Disorders: No Family Medical History No Pertinent Family Hx Physical Exam Vital Signs Vital Signs - First Documented 04/19/20 19:10 Temp 36.3 Pulse 90 Resp 18 B/P (MAP) 122/85 (97) Pulse Ox 100 Capillary Refill : Less Than 3 Seconds Height/Weight/BMI Height: 5'5.00" Weight: 159lbs. 0oz. 72.932640xm; 26.00 BMI Method:Stated General Appearance: WD/WN, no apparent distress HEENT: PERRL/EOMI, normal ENT inspection, TMs normal, pharynx normal, other (pink and moist) Neck: non-tender, full range of motion, supple, normal inspection Respiratory: chest non-tender, lungs clear, normal breath sounds Cardiovascular: normal peripheral pulses Gastrointestinal: normal bowel sounds, soft, tenderness (generaized, lower abdomen) Back: normal inspection, no vertebral tenderness, CVA tenderness (R) Neurologic/Psychiatric: no motor/sensory deficits, alert, normal mood/affect, oriented x 3 Skin: normal color, warm/dry Progress/Results/Core Measures Results/Orders Lab Results Laboratory Tests Test 04/19/20 19:14 04/19/20 19:28 Range/Units Urine Color YELLOW Urine Clarity CLEAR Urine pH 7.0 5-9 Urine Specific [place] <=1.005 1.016-1.022 Urine Protein NEGATIVE NEGATIVE Urine Glucose (UA) NEGATIVE NEGATIVE Urine Ketones NEGATIVE NEGATIVE Urine Nitrite NEGATIVE NEGATIVE Urine Bilirubin NEGATIVE NEGATIVE Urine Urobilinogen 0.2 < = 1.0 MG/DL Urine Leukocyte Esterase NEGATIVE NEGATIVE Urine RBC (Auto) NEGATIVE NEGATIVE Urine RBC NONE /HPF Urine WBC NONE /HPF Urine Squamous Epithelial Cells 2-5 /HPF Urine Crystals NONE /LPF Urine Bacteria TRACE /HPF Urine Casts NONE /LPF Urine Mucus NEGATIVE /LPF Urine Culture Indicated NO White Blood Count 6.2 4.3-11.0 10^3/uL Red Blood Count 4.30 3.80-5.11 10^6/uL Hemoglobin 13.2 11.5-16.0 g/dL Hematocrit 40 35-52 % Mean Corpuscular Volume 92 80-99 fL Mean Corpuscular Hemoglobin 31 25-34 pg Mean Corpuscular Hemoglobin Concent 33 32-36 g/dL Red Cell Distribution Width 12.4 10.0-14.5 % Platelet Count 194 130-400 10^3/uL Mean Platelet Volume 10.0 9.0-12.2 fL Immature Granulocyte % (Auto) 0 % Neutrophils (%) (Auto) 70 42-75 % Lymphocytes (%) (Auto) 23 12-44 % Monocytes (%) (Auto) 5 0-12 % Eosinophils (%) (Auto) 1 0-10 % Basophils (%) (Auto) 1 0-10 % Neutrophils # (Auto) 4.4 1.8-7.8 10^3/uL Lymphocytes # (Auto) 1.4 1.0-4.0 10^3/uL Monocytes # (Auto) 0.3 0.0-1.0 10^3/uL Eosinophils # (Auto) 0.0 0.0-0.3 10^3/uL Basophils # (Auto) 0.0 0.0-0.1 10^3/uL Immature Granulocyte # (Auto) 0.0 0.0-0.1 10^3/uL Sodium Level 135 135-145 MMOL/L Potassium Level 3.8 3.6-5.0 MMOL/L Chloride Level 101 98-107 MMOL/L Carbon Dioxide Level 26 21-32 MMOL/L Anion Gap 8 5-14 MMOL/L Blood Urea Nitrogen 5 L 7-18 MG/DL Creatinine 0.75 0.60-1.30 MG/DL Estimat Glomerular Filtration Rate > 60 BUN/Creatinine Ratio 7 Glucose Level 87 70-105 MG/DL Calcium Level 8.7 8.5-10.1 MG/DL Corrected Calcium 8.8 8.5-10.1 MG/DL Total Bilirubin 0.5 0.1-1.0 MG/DL Aspartate Amino Transf (AST/SGOT) 15 5-34 U/L Alanine Aminotransferase (ALT/SGPT) 10 0-55 U/L Alkaline Phosphatase 40 40-136 U/L Total Protein 6.5 6.4-8.2 GM/DL Albumin 3.9 3.2-4.5 GM/DL My Orders Orders - RAUL CONTRERAS Urine Bedside (04/19/20 18:54) Ua Culture If Indicated (04/19/20 18:54) Cbc With Automated Diff (04/19/20 19:24) Comprehensive Metabolic Panel (04/19/20 19:24) Ondansetron Injection (Zofran Injectio (04/19/20 19:30) Ed Iv/Invasive Line Start (04/19/20 19:24) Ns Iv 1000 Ml (Sodium Chloride 0.9%) (04/19/20 19:24) Rx-Ondansetron Po (Rx-Zofran Po) (04/19/20 20:12) Medications Given in ED Current Medications Medications Dose Ordered Sig/Adele Route Start Time Stop Time Status Last Admin Dose Admin Ondansetron HCl 4 mg ONCE ONCE IVP 04/19/20 19:30 04/19/20 19:31 DC 04/19/20 19:37 4 MG Vital Signs/I&O 04/19/20 19:10 Temp 36.3 Pulse 90 Resp 18 B/P (MAP) 122/85 (97) Pulse Ox 100 Blood Pressure Mean: 97 Progress Progress Note : Time: 19:20 Progress Note Patient seen and evaluated, will obtain labs, normal saline 1 L per IV and Zofran 4 mg IV for nausea. Reassured patient that she has bowel sounds no evidence to support a bowel obstruction. 2004 patient has had no nausea or vomiting since admission here. She reports the nausea has improved. Patient taking sips of water with no nausea or vomiting. 2014 discharge instructions and return precautions reviewed with the patient. Departure Impression Primary Impression: Constipation Qualified Codes: K59.09 - Other constipation Additional Impressions: First trimester Nausea and vomiting Qualified Codes: R11.2 - Nausea with vomiting, unspecified Disposition: HOME, SELF-CARE Condition: Improved Departure-Patient Inst. Decision time for Depature: 20:15 Referrals: CAROLINA ARAYA,LOCAL PHYSICIAN (PCP) Primary Care Physician Patient Instructions: Constipation, Adult (DC), Nausea and Vomiting of (DC) Add. Discharge Instructions: Increase water intake, 16 ounces every 2 hours while awake. Walk for 10-15 minutes several times throughout the day. Follow-up with Dr. Araya. [place] diet when nauseated. Continue taking your vitamin and use MiraLAX for constipation. Return to emergency department for new, urgent health care needs. All discharge instructions reviewed with patient and/or family. Voiced understanding. Scripts Ondansetron (Ondansetron Odt) 4 Mg Tab.rapdis 4 MG PO Q6H PRN for NAUSEA/VOMITING, #20 TAB 0 Refills Prov: RAUL CONTRERAS 04/19/20 Copy Copies To 1: CAROLINA ARAYA AMY ARNP Apr 19, 2020 20:07
[2020-04-19] MEDS ORDERED: ONDA4TAB11 PO (20:08)
[2020-04-19 20:11] LABS: ALANINE AMINOTRANSFERASE 10 U/L (0-55); ALBUMIN 3.9 GM/DL (3.2-4.5); ALKALINE PHOSPHATASE 40 U/L (40-136); BILIRUBIN,TOTAL 0.5 MG/DL (0.1-1.0); BUN/CREATININE RATIO 7; CALCIUM 8.7 MG/DL (8.5-10.1); CARBON DIOXIDE 26 MMOL/L (21-32); CHLORIDE 101 MMOL/L (98-107); CREATININE SERUM 0.75 MG/DL (0.60-1.30); GFR ESTIMATED > 60; GLUCOSE 87 MG/DL (70-105); POTASSIUM 3.8 MMOL/L (3.6-5.0); SODIUM 135 MMOL/L (135-145); TOTAL PROTEIN 6.5 GM/DL (6.4-8.2)
[2020-04-19] MEDS ORDERED: RX-ONDANSETRON 4 MG ODT (ZOFRAN) PPK #4 PO STA (20:12)
[2020-04-19 20:41] VITALS: BP 101/64
== END 2020-04-19 20:47 | disposition home or self-care (01) ==
LOC: EDUNIT# 18:52 → ER 18:54
DX: O26.891 Other specified pregnancy related conditions, first trimester (principal); K59.00 Constipation, unspecified; R11.2 Nausea with vomiting, unspecified; Z88.5 Allergy status to narcotic agent; Z88.2 Allergy status to sulfonamides; Z88.1 Allergy status to other antibiotic agents; Z3A.01 Less than 8 weeks gestation of pregnancy
CPT/HCPCS: 36415; 80053; 81000; 84703; 85025

== ENCOUNTER 2020-04-30 14:13 | Emergency (ER) | payer BC ==
[~2020-04-30] VITALS: Ht 167.7 cm; Wt 72.1 kg
[2020-04-30] MEDS ORDERED: NS IV 1000 ML 1,000 ML IV SCH (16:15)
[2020-04-30] MEDS ORDERED: ONDANSETRON 4 MG/2 ML (SDV) Z0FRAN IVP ONE (16:15)
[2020-04-30 16:18] LABS: BILIRUBIN,URINE NEGATIVE (NEGATIVE); CLARITY,URINE SL CLOUDY; COLOR,URINE YELLOW; GLUCOSE, URINE (UA) NEGATIVE (NEGATIVE); KETONES,URINE NEGATIVE (NEGATIVE); LEUKOCYTE ESTERASE ,URINE NEGATIVE (NEGATIVE); NITRITE,URINE NEGATIVE (NEGATIVE); PROTEIN,URINE NEGATIVE (NEGATIVE)
--- NOTE | 2020-04-30 16:18 | ED Abdominal Pain ---
General Chief Complaint: Abdominal/GI Problems Stated Complaint: ABD PAIN RLQ,N/V 12 WKS Source of Information: Patient Exam Limitations: No Limitations History of Present Illness Date Seen by Provider: Apr 30, 2020 Time Seen by Provider: 16:05 Initial Comments Patient is a 30-year-old female G3 para 2 who presents to the emergency department today with a chief complaint of right lower quadrant abdominal pain that is sharp in nature. Patient states that she has had this pain pretty consistently for the last 2 weeks. Nothing really makes it any better or nothing makes it any worse. Patient states it feels like her gallbladder pain when she had her gallbladder taken out after the of her first child. Patient states that she is approximately 12 weeks at this time. Her OB is Dr. ARAYA. Patient has an appointment scheduled with Dr. ARAYA this Friday in 3 days time. Patient denies any burning with urination, urinary frequency or urgency. Patient states that she has had persistent nausea and vomiting with inability to hold down her ODT Zofran for the last several days. Patient states she has a history of Inderjit disease. Patient denies any sick contacts recently. She denies any diarrhea. She has been having small hard bowel movements. All other review of systems reviewed and negative except as stated above. Timing/Duration: Other (2 weeks) Severity/Quality: Moderate, Sharp Location: RLQ Radiation: No Radiation Activities at Onset: None Modifying Factors: Improves With Analgesics (Taking vafw-jrw-loqwric Tylenol and Zofran without much relief) Allergies and Home Medications Allergies Coded Allergies: hydrocodone (Verified Allergy, Unknown, 09/23/17) sulfamethoxazole (Verified Allergy, Unknown, 09/23/17) trimethoprim (Verified Allergy, Unknown, 09/23/17) Home Medications Ondansetron 4 Mg Tab.rapdis, 4 MG PO Q6H PRN for NAUSEA/VOMITING Prescribed by: RAUL CONTRERAS on 04/19/202007 Patient Home Medication List Home Medication List Reviewed: Yes Review of Systems Review of Systems Constitutional: no symptoms reported EENTM: No Symptoms Reported Cardiovascular: No Symptoms Reported Gastrointestinal: Abdominal Pain Genitourinary: No Symptoms Reported Musculoskeletal: no symptoms reported Skin: no symptoms reported Psychiatric/Neurological: No Symptoms Reported All Other Systems Reviewed Negative Unless Noted: Yes Past Winxmpf-Fdxgka-Zgmnyl Hx Patient Social History 2nd Hand Smoke Exposure: No Recent Foreign Travel: No Contact w/Someone Who Travel: No Recent Hopitalizations: No Immunizations Up To Date Tetanus Booster (TDap): Unknown PED Vaccines UTD: Yes Date of Influenza Vaccine: Mar 22, 2019 Seasonal Allergies Seasonal Allergies: No Past Medical History Surgeries: Yes (L KNEE SCOPE X7; KIDNEY BX; LUMBAR PUNCTURE W/BLOOD PCH: R/CARPAL TUNNEL) Gallbladder, Orthopedic Respiratory: No Cardiac: Yes (HX OF SINUS TACH) Deep Vein Thrombosis Neurological: Yes Headaches /Migraines, Neuropathy Female Reproductive Disorders: Denies Genitourinary: Yes (RENAL INSUFFICIENCY) Gastrointestinal: No Musculoskeletal: Yes Degenerate Disk Disease, Chronic Back Pain Endocrine: Yes (FABRY'S DISEASE) HEENT: No Cancer: No Psychosocial: Yes Sleep Difficulties, Anxiety, Depression Integumentary: No Blood Disorders: No Family Medical History No Pertinent Family Hx Physical Exam Vital Signs Vital Signs - First Documented 04/30/20 15:55 Temp 36.2 Pulse 91 Resp 17 B/P (MAP) 116/78 (91) Pulse Ox 99 O2 Delivery Room Air Capillary Refill : Height/Weight/BMI Height: 5'5.00" Weight: 159lbs. 0oz. 72.376571cg; 26.00 BMI Method:Stated General Appearance: WD/WN, no apparent distress HEENT: PERRL/EOMI Neck: full range of motion Respiratory: lungs clear, normal breath sounds, no respiratory distress, no accessory muscle use Cardiovascular: regular rate, rhythm, no gallop, no murmur Gastrointestinal: normal bowel sounds, soft, abnormal bowel sounds (Hypoactive bowel sounds); No distended, No guarding, No rebound; tenderness (Tenderness in the right lower quadrant with palpation without rebound guarding, heeltap patient endorses tenderness in the right lower quadrant with palpation of the left lower quadrant) Extremities: normal range of motion, non-tender, normal inspection Back: normal inspection Neurologic/Psychiatric: alert, normal mood/affect, oriented x 3 Skin: normal color, warm/dry Progress/Results/Core Measures Results/Orders Lab Results Laboratory Tests Test 04/30/20 16:10 04/30/20 16:45 Range/Units Urine Color YELLOW Urine Clarity SL CLOUDY Urine pH 6.0 5-9 Urine Specific [place] >=1.030 1.016-1.022 Urine Protein NEGATIVE NEGATIVE Urine Glucose (UA) NEGATIVE NEGATIVE Urine Ketones NEGATIVE NEGATIVE Urine Nitrite NEGATIVE NEGATIVE Urine Bilirubin NEGATIVE NEGATIVE Urine Urobilinogen 0.2 < = 1.0 MG/DL Urine Leukocyte Esterase NEGATIVE NEGATIVE Urine RBC (Auto) NEGATIVE NEGATIVE Urine RBC NONE /HPF Urine WBC NONE /HPF Urine Squamous Epithelial Cells 5-10 /HPF Urine Crystals NONE /LPF Urine Bacteria NEGATIVE /HPF Urine Casts NONE /LPF Urine Mucus SMALL H /LPF Urine Culture Indicated NO White Blood Count 5.7 4.3-11.0 10^3/uL Red Blood Count 4.25 3.80-5.11 10^6/uL Hemoglobin 13.1 11.5-16.0 g/dL Hematocrit 39 35-52 % Mean Corpuscular Volume 91 80-99 fL Mean Corpuscular Hemoglobin 31 25-34 pg Mean Corpuscular Hemoglobin Concent 34 32-36 g/dL Red Cell Distribution Width 12.4 10.0-14.5 % Platelet Count 182 130-400 10^3/uL Mean Platelet Volume 10.0 9.0-12.2 fL Immature Granulocyte % (Auto) 0 % Neutrophils (%) (Auto) 67 42-75 % Lymphocytes (%) (Auto) 27 12-44 % Monocytes (%) (Auto) 5 0-12 % Eosinophils (%) (Auto) 1 0-10 % Basophils (%) (Auto) 1 0-10 % Neutrophils # (Auto) 3.8 1.8-7.8 10^3/uL Lymphocytes # (Auto) 1.5 1.0-4.0 10^3/uL Monocytes # (Auto) 0.3 0.0-1.0 10^3/uL Eosinophils # (Auto) 0.0 0.0-0.3 10^3/uL Basophils # (Auto) 0.0 0.0-0.1 10^3/uL Immature Granulocyte # (Auto) 0.0 0.0-0.1 10^3/uL Sodium Level 136 135-145 MMOL/L Potassium Level 3.9 3.6-5.0 MMOL/L Chloride Level 104 98-107 MMOL/L Carbon Dioxide Level 23 21-32 MMOL/L Anion Gap 9 5-14 MMOL/L Blood Urea Nitrogen 5 L 7-18 MG/DL Creatinine 0.75 0.60-1.30 MG/DL Estimat Glomerular Filtration Rate > 60 BUN/Creatinine Ratio 7 Glucose Level 94 70-105 MG/DL Calcium Level 8.7 8.5-10.1 MG/DL My Orders Orders - BEAU PALUMBO MD Ed Iv/Invasive Line Start (04/30/20 16:11) Cbc With Automated Diff (04/30/20 16:11) Basic Metabolic Panel (04/30/20 16:11) Ua Culture If Indicated (04/30/20 16:11) Ns Iv 1000 Ml (Sodium Chloride 0.9%) (04/30/20 16:15) Ondansetron Injection (Zofran Injectio (04/30/20 16:15) Medications Given in ED Current Medications Medications Dose Ordered Sig/Adele Route Start Time Stop Time Status Last Admin Dose Admin Ondansetron HCl 4 mg ONCE ONCE IVP 04/30/20 16:15 04/30/20 16:16 DC 04/30/20 16:41 4 MG Vital Signs/I&O 04/30/20 15:55 Temp 36.2 Pulse 91 Resp 17 B/P (MAP) 116/78 (91) Pulse Ox 99 O2 Delivery Room Air Progress Progress Note : Time: 16:17 Progress Note 30-year-old female 12 weeks presents to the emergency room with chief complaint of nausea vomiting abdominal pain. Evaluation today includes a physical exam as well as a urinalysis, CBC, BM 7. Patient will be given a liter of IV fluids to address any dehydration type issues. She is also given 4 mg of Zofran IV. Will assess for heart tones after labs are drawn. 1715 Laboratory studies returned and CBC and Chem-7 are within normal limits, urinalysis does not show any indications for infection. Patient has good heart tones at the bedside. Her nausea and vomiting are controlled with IV Zofran and her fluid administration. Patient feels comfortable. She is reassured. Again she has follow-up with her OB doctor on Friday of this w [place]. Patient is instructed to call the office if she has any return or worsening of symptoms. She verbalizes understanding she is comfortable with the plan of care all questions are sought and answered and she is stable for discharge. Departure Impression Primary Impression: Abdominal pain Qualified Codes: R10.31 - Right lower quadrant pain Additional Impression: First trimester Disposition: HOME, SELF-CARE Condition: Stable Departure-Patient Inst. Decision time for Depature: 17:17 Referrals: CAROLINA ARAYA,LOCAL PHYSICIAN (PCP) Primary Care Physician Patient Instructions: - The Fourth Month, Severe Abdominal Pain, Adult (DC) Add. Discharge Instructions: Continue to take your vitamins as before. Use the oral Zofran dissolving tablets every 8 hours as needed for nausea and vomiting. Do small amounts of fluids by mouth every 15 minutes to stay well-hydrated. You can take in as little as a tablespoon at a time every 15 minutes. Return to the emergency room for any worsening pain especially with fever over 101, excessive vomiting or any other emergent concerning symptoms. BEAU PALUMBO MD Apr 30, 2020 16:18
[2020-04-30 16:24] LABS: BACTERIA,URINE NEGATIVE /HPF
[2020-04-30 16:52] LABS: BASOPHILS % (AUTO) 1 % (0-10); EOSINOPHILS % (AUTO) 1 % (0-10); HEMATOCRIT 39 % (35-52); HEMOGLOBIN 13.1 g/dL (11.5-16.0); LYMPHOCYTES # (AUTO) 1.5 10^3/uL (1.0-4.0); LYMPHOCYTES % (AUTO) 27 % (12-44); MEAN CORPUSCULAR HEMOGLOBIN 31 pg (25-34); MEAN CORPUSCULAR HGB CONC 34 g/dL (32-36); MEAN CORPUSCULAR VOLUME 91 fL (80-99); MONOCYTES # (AUTO) 0.3 10^3/uL (0.0-1.0); MONOCYTES % (AUTO) 5 % (0-12); NEUTROPHILS # (AUTO) 3.8 10^3/uL (1.8-7.8); NEUTROPHILS % (AUTO) 67 % (42-75); PLATELET COUNT 182 10^3/uL (130-400); WHITE BLOOD COUNT 5.7 10^3/uL (4.3-11.0)
[2020-04-30 17:00] LABS: CHLORIDE 104 MMOL/L (98-107); POTASSIUM 3.9 MMOL/L (3.6-5.0); SODIUM 136 MMOL/L (135-145)
[2020-04-30 17:01] LABS: CALCIUM 8.7 MG/DL (8.5-10.1)
[2020-04-30 17:02] LABS: GLUCOSE 94 MG/DL (70-105)
[2020-04-30 17:03] LABS: CARBON DIOXIDE 23 MMOL/L (21-32)
[2020-04-30 17:06] LABS: BUN/CREATININE RATIO 7; CREATININE SERUM 0.75 MG/DL (0.60-1.30); GFR ESTIMATED > 60
[2020-04-30 18:04] VITALS: BP 112/76
== END 2020-04-30 18:04 | disposition home or self-care (01) ==
LOC: EDUNIT# 14:13 → ER 14:16
DX: O26.891 Other specified pregnancy related conditions, first trimester (principal); R10.31 Right lower quadrant pain; Z3A.12 12 weeks gestation of pregnancy; Z88.5 Allergy status to narcotic agent; Z88.2 Allergy status to sulfonamides; Z88.1 Allergy status to other antibiotic agents
CPT/HCPCS: 36415; 80048; 81000; 85025

== ENCOUNTER → 2020-05-08 | Outpatient (CLI) | payer BC ==
--- NOTE | 2020-05-08 12:07 | Diagnostic Imaging Report ---
PROCEDURE: US OB SINGLE FETUS <14 WKS. TECHNIQUE: Multiple Real-time grayscale images were obtained over the gravid uterus in various projections. INDICATION: Pelvic pain. FINDINGS: There is an intrauterine gestational sac containing a pole. The crown-rump length measurement is 7.9 cm, consistent with a 14 week 0 day gestation. The heart rate was recorded at 160 BPM. The placenta is developing anteriorly. No edwin-gestational sac hemorrhage is detected. The adnexa are unremarkable. IMPRESSION: Single live IUP at 14 weeks 0 days gestational age. The estimated date of confinement sonographically is 11/06/2020. Dictated by: Dictated on workstation # [id number]
== END ==
LOC: RAD 10:00
PROVIDERS: ATTEND Obstetrics & Gynecology
DX: O26.892 Other specified pregnancy related conditions, second trimester (principal); Z3A.14 14 weeks gestation of pregnancy; R10.2 Pelvic and perineal pain
CPT/HCPCS: 76801

== ENCOUNTER → 2020-06-15 | Outpatient (CLI) | payer BC ==
--- NOTE | 2020-06-15 14:31 | Diagnostic Imaging Report ---
INDICATION: survey. TECHNIQUE: Multiple real-time grayscale images were obtained over the gravid uterus. COMPARISON: 05/08/2020. FINDINGS: There is a single live fetus in a cephalic presentation. heart rate was recorded at 146 bpm. Placenta is anterior. Amniotic fluid index is normal. Cervical length is 5.8 cm. survey demonstrates kidneys, bladder and stomach to be unremarkable. brain is unremarkable. There is a four-chamber heart. There is a three-vessel cord with normal insertion. spine is unremarkable. Biometrical measurements are as follows: Biparietal 4.54 cm, age 19 weeks 6 days. Head circumference 16.87 cm, age 19 weeks 4 days. Abdominal circumference 14.29 cm, age 19 weeks 5 days. Femur length 3.29 cm, age 20 weeks 2 days. Sonographic estimate age: 19 weeks 6 days. Sonographic estimated date of delivery: 11/03/2020. Estimated Weight: 319 gm (+/- 47 gm). LMP percentile: 91%. heart rate: 146 beats per minute. number: 1 of 1. IMPRESSION: Single live IUP approximately 20 weeks gestational age demonstrating normal interval growth when compared with prior exam. No complicating features are detected. Dictated by: Dictated on workstation # [id number]
== END ==
LOC: RAD 10:45
PROVIDERS: ATTEND Obstetrics & Gynecology
DX: Z34.92 Encounter for supervision of normal pregnancy, unspecified, second trimester (principal); Z3A.20 20 weeks gestation of pregnancy
CPT/HCPCS: 76805

== ENCOUNTER 2020-07-10 19:31 | Outpatient (CLI) | payer BC ==
[~2020-07-10] VITALS: Ht 165.1 cm; Wt 78.8 kg
--- NOTE | 2020-07-10 19:40 | NUR ---
MONIKA SAINZ presented to unit via ambulation from ED, accompanied by s.o., with c/o CRAMPING/PRESSURE/HEADACHE. MONIKA SAINZ weighed, gowned, voided, and to bed. EFHM and TOCO applied, VS taken. MONIKA SAINZ oriented to bed controls, call light, TV, heat, and A/C controls. Addendum: 07/10/20 at 2000 by GARY ISBELL RN Pt ambulating by self*
[2020-07-10 19:58] LABS: BILIRUBIN,URINE NEGATIVE (NEGATIVE); CLARITY,URINE CLEAR; COLOR,URINE YELLOW; GLUCOSE, URINE (UA) NEGATIVE (NEGATIVE); KETONES,URINE NEGATIVE (NEGATIVE); LEUKOCYTE ESTERASE ,URINE NEGATIVE (NEGATIVE); NITRITE,URINE NEGATIVE (NEGATIVE); PH,URINE 6.5 (5-9); PROTEIN,URINE NEGATIVE (NEGATIVE)
[2020-07-10 20:00] VITALS: BP 108/69
--- NOTE | 2020-07-10 20:00 | NUR ---
Pt came in with complaints of headache x2 days with no relief from tylenol. Constant lower abdominal pain, lower back pain. Denies any vaginal bleeding or recent intercourse. States she was covid swab on 07/02 for sinus issues. States she is still having nasal drainage. Denies any loss of smell or taste or contact with covid pt.
[2020-07-10 20:03] LABS: BACTERIA,URINE TRACE /HPF
--- NOTE | 2020-07-10 20:10 | NUR ---
notified of pt's arrival and complaint. u/a results, tracing, vs, and assessment reported. New orders received.
[2020-07-10 20:23] VITALS: BP 108/69
[2020-07-10] MEDS ORDERED: APAP 300 MG/CODEINE 30 MG (TYLENOL #3) TAB PO ONE (20:30)
--- NOTE | 2020-07-10 20:48 | NUR ---
Discharge instructions verbalized with pt. Pt s/o here to drive her home. Labor precautions given. Pt verbalized understanding. pt will follow up with in the office.
--- NOTE | 2020-07-11 09:12 | Physician Query-Final Dx ---
KVNG VILLAFANA 07/11/20 0912: Clinic Account Progress/Dx Physician Query: Please give diagnosis Please include # of weeks gestation Date of Service Jul 10, 2020 at 19:31 CAROLINA ARAYA DO 07/11/20 1619: Clinic Account Progress/Dx DIAGNOSIS: Diagnosis 23 week IUP Headache Pelvic pressure LEDYKVNG Jessica Jul 11, 2020 09:12 CAROLINA ARAYA DO Jul 11, 2020 16:19
== END 2020-07-10 20:38 ==
LOC: LDRP 19:31 → WSo 19:31
PROVIDERS: ATTEND Obstetrics & Gynecology
DX: O26.892 Other specified pregnancy related conditions, second trimester (principal); R10.2 Pelvic and perineal pain; R51.9 Headache, unspecified; Z3A.23 23 weeks gestation of pregnancy
CPT/HCPCS: 81000

== ENCOUNTER 2020-10-22 23:24 | Outpatient (CLI) | payer BC ==
[~2020-10-22] VITALS: Ht 167.7 cm; Wt 80.1 kg
[~2020-10-22 23:24] MED LIST changes: -OXYC-471 PO; +OXYC1TAB11 PO
[2020-10-22 23:40] VITALS: BP 111/74
[2020-10-23] MEDS ORDERED: DULO60CA6 PO
[2020-10-23] MEDS ORDERED: PREN-142 PO
--- NOTE | 2020-10-23 07:41 | Physician Query-Final Dx ---
KVNG VILLAFANA 10/23/20 0741: Clinic Account Progress/Dx Physician Query: Please give diagnosis Please include # weeks gestation Date of Service Oct 22, 2020 at 23:24 LINK VALLADARES MD 10/23/20 2004: Clinic Account Progress/Dx DIAGNOSIS: Diagnosis 37 weeks with false labor KVNG VILLAFANA Oct 23, 2020 07:41 LINK VALLADARES MD Oct 23, 2020 20:04
== END 2020-10-23 00:40 | disposition home or self-care (01) ==
LOC: WSo 23:24 → LDRP 23:24 → WSo 10-23 00:40
PROVIDERS: ATTEND Obstetrics & Gynecology
DX: O47.1 False labor at or after 37 completed weeks of gestation (principal); Z3A.37 37 weeks gestation of pregnancy
CPT/HCPCS: 99213

== ENCOUNTER 2020-11-01 18:49 | Inpatient (IN) | payer BC ==
[~2020-11-01] VITALS: Ht 167 cm; Wt 81.0 kg
[~2020-11-01 18:49] MED LIST changes: +DULO60CA6 PO; +PREN-142 PO
[2020-11-01] MEDS ORDERED: NS IV 500 ML 500 ML ONE (19:09)
[2020-11-01 19:30] VITALS: BP 108/66
[2020-11-01] MEDS: D5 LR IV SOLUTION 1,000 ML IV SCH (19:41)
[2020-11-01] MEDS ORDERED: NS IV 500 ML 500 ML IV ONE (19:45)
[2020-11-01 19:53] LABS: BASOPHILS % (AUTO) 1 % (0-10); EOSINOPHILS % (AUTO) 1 % (0-10); HEMATOCRIT 32 % (35-52); HEMOGLOBIN 10.1 g/dL (11.5-16.0); LYMPHOCYTES % (AUTO) 27 % (12-44); MEAN CORPUSCULAR HEMOGLOBIN 27 pg (25-34); MEAN CORPUSCULAR HGB CONC 32 g/dL (32-36); MEAN CORPUSCULAR VOLUME 86 fL (80-99); MEAN PLATELET VOLUME 11.6 fL (9.0-12.2); MONOCYTES # (AUTO) 0.5 10^3/uL (0.0-1.0); MONOCYTES % (AUTO) 7 % (0-12); NEUTROPHILS # (AUTO) 4.6 10^3/uL (1.8-7.8); NEUTROPHILS % (AUTO) 64 % (42-75); PLATELET COUNT 250 10^3/uL (130-400); WHITE BLOOD COUNT 7.2 10^3/uL (4.3-11.0)
[2020-11-01 20:17] VITALS: BP 108/66
[2020-11-01 20:30] VITALS: BP 106/62
[2020-11-01 21:30] VITALS: BP 97/56
[2020-11-01 22:30] VITALS: BP 96/53
[2020-11-01 23:30] VITALS: BP 109/69
[2020-11-02] VITALS (53 sets, daily range): BP systolic 99–128; BP diastolic 55–79
[2020-11-02] MEDS ORDERED: fentaNYL 2 mcg/ml BUPIVA 0.125 100 ML ONE (02:25)
[2020-11-02] MEDS: D5 LR IV SOLUTION 1,000 ML IV SCH (02:54)
[2020-11-02] MEDS ORDERED: BUPIVACAINE 0.25% 30 ML (SENSORCAINE) VIAL ONE (02:59)
[2020-11-02] MEDS ORDERED: LIDOCAINE PF 2% 5 ML (XYLOCAINE) VIAL ONE (02:59)
[2020-11-02] MEDS ORDERED: fentaNYL INJ 100 MCG/2 ML AMP ONE (02:59)
[2020-11-02] MEDS ORDERED: EPIDURAL (fentaNYL 2 MCG/ML BUPIVA 0.125%)100 ML BAG EPI PRN (03:30)
[2020-11-02] MEDS ORDERED: LACTATED RINGERS 1,000 ML IV SCH (03:30)
[2020-11-02] MEDS ORDERED: NALOXONE 0.4 MG/ML 1 ML (NARCAN) VIAL IV PRN (03:30)
[2020-11-02] MEDS ORDERED: ONDANSETRON 4 MG/2 ML (SDV) Z0FRAN IV PRN (03:30)
[2020-11-02] MEDS ORDERED: diphenhydrAMINE 50 MG/ML INJ (BENADRYL) IV PRN (03:30)
[2020-11-02] MEDS ORDERED: LIDOCAINE/EPI 2% 1:200,00 (XYLOCAINE) 20 ML VIAL ONE (06:45)
[2020-11-02] MEDS ORDERED: OXYTOCIN PRE-MIX DRIP 500 ML IV ONE (06:46)
[2020-11-02] MEDS: OXYTOCIN PRE-MIX DRIP 500 ML IV SCH ×2 (08:18→08:51)
--- NOTE | 2020-11-02 08:28 | History & Physical-OB ---
OB - Chief Complaint & HPI Date/Time Date of Admission: Date of Admission: Nov 01, 2020 at 18:49 Date seen by a Provider: Nov 02, 2020 Time Seen by a Provider: 07:00 Chief Complaint/History OB-Reason for Admission/Chief: Induction of Labor Hx : 3 Hx Para: 2 Expected Date of Delivery: November 09, 2020 Gestational Age in Weeks: 39 Gestational Age in Days: 0 Admission Nurse Assessment Rev: Yes Allergies and Home Medications Allergies Coded Allergies: hydrocodone (Verified Allergy, Unknown, 09/23/17) sulfamethoxazole (Verified Allergy, Unknown, 09/23/17) trimethoprim (Verified Allergy, Unknown, 09/23/17) Home Medications Duloxetine HCl 60 Mg Capsule.dr, 60 MG PO DAILY, (Reported) Last Action: Reviewed Vit No.124/Iron/FA 1 Each Tablet, 1 EACH PO DAILY, (Reported) Last Action: Reviewed Patient Home Medication List Home Medication List Reviewed: Yes OB - History Hx of Present Care: Yes Ultrasounds: Normal mid trimester US Obstetrical Complications: Gestational Diabetes (diet controlled) Medical Complications: None Patient Past Medical History n/a Social History/Family History 2nd Hand Smoke Exposure: No Significant Family Hx Hx of Fabry's disease Immunizations Hepatitis A: No Hepatitis B: Yes Tetanus Booster (TDap): Unknown Date of Influenza Vaccine: Apr 06, 2020 OB - Admission Exam Physical Exam Vitals: Vital Signs 11/02/20 11/02/20 11/02/20 04:45 06:45 07:00 Temp 37.0 Pulse 97 Resp 18 B/P (MAP) 114/67 (83) Pulse Ox 100 O2 Delivery Room Air HEENT: NCAT Heart: Rhythm Normal Lungs: Clear Abdomen: Gravid Extremities: Normal Reflexes: Normal Cervical Dilatation: 2cm Effacement: 75% Station: -1 Membranes: Intact Amniotic Fluid: Clear Heart Rate: 130's Accelerations: Accelerations Present Decelerations: No Decelerations Short Term Variability: Present Group Home Variability: Average (6-25) Contractions on Admission: >10 Minutes Apart Intensity: Mild Labs Laboratory Tests Test 11/01/20 19:30 Range/Units White Blood Count 7.2 4.3-11.0 10^3/uL Red Blood Count 3.72 L 3.80-5.11 10^6/uL Hemoglobin 10.1 L 11.5-16.0 g/dL Hematocrit 32 L 35-52 % Mean Corpuscular Volume 86 80-99 fL Mean Corpuscular Hemoglobin 27 25-34 pg Mean Corpuscular Hemoglobin Concent 32 32-36 g/dL Red Cell Distribution Width 14.2 10.0-14.5 % Platelet Count 250 130-400 10^3/uL Mean Platelet Volume 11.6 9.0-12.2 fL Immature Granulocyte % (Auto) 0 % Neutrophils (%) (Auto) 64 42-75 % Lymphocytes (%) (Auto) 27 12-44 % Monocytes (%) (Auto) 7 0-12 % Eosinophils (%) (Auto) 1 0-10 % Basophils (%) (Auto) 1 0-10 % Neutrophils # (Auto) 4.6 1.8-7.8 10^3/uL Lymphocytes # (Auto) 2.0 1.0-4.0 10^3/uL Monocytes # (Auto) 0.5 0.0-1.0 10^3/uL Eosinophils # (Auto) 0.0 0.0-0.3 10^3/uL Basophils # (Auto) 0.0 0.0-0.1 10^3/uL Immature Granulocyte # (Auto) 0.0 0.0-0.1 10^3/uL OB - Assessment/Plan/Diagnosis Assessment Assessment: induction of labor Admission Dx 30 yo @39 weeks Induction of labor GDMA1 GBS neg Admission Status: Inpatient Order (span 2 midnights) Reason for Inpatient Admission: 39 week induction GDMA1 Plan Plan: Induction Induction Method: per Misoprostol Protocol CAROLINA ARAYA DO Nov 02, 2020 08:28
[2020-11-02] MEDS ORDERED: BENZOCAINE/MENTHOL (DERMOPLAST) 56 ML CAN TP PRN (08:30)
[2020-11-02] MEDS ORDERED: DIBUCAINE 1% OINTMENT 30 GM TUBE TOP PRN (08:30)
[2020-11-02] MEDS ORDERED: MEASLES,MUMPS,RUBELLA 1 EA INJ SQ ONE (08:30)
[2020-11-02] MEDS ORDERED: TETANUS,DIPTH,PERTUSS P/F (BOOSTRIX) 0.5 ML VIAL IM ONE (08:30)
--- NOTE | 2020-11-02 08:35 | OB Labor & Delivery Record ---
L&D History Date of Service Date of Service: Nov 02, 2020 History Expected Date of Delivery: November 09, 2020 Gestational Age in Weeks: 39 Hx : 3 Hx Para: 2 Complications Events: Routine care Operative Indications (Cesarea: N/A-Vaginal Delivery Intrapartal Events: None L&D Stage1 Stage One Onset of Labor - Date: Nov 02, 2020 Monitors and Tracing Monitor Mode: External Heart Rate: 130 Monitor Accelerations: Uniform Monitor Decelerations: Variable Station: 0 Collection Systems Modeler Variability: Average (6-10) Short Term Variability: Present Presentation: Vertex Vital Signs VS - Last 72 Hours, by Label 11/01/20 11/01/20 11/01/20 11/01/20 19:30 20:17 20:30 21:30 Temp 36.6 36.6 Pulse 141 141 101 85 Resp 18 18 18 18 B/P (MAP) 108/66 (80) 106/62 (77) 97/56 (70) Pulse Ox 96 96 O2 Delivery Room Air 11/01/20 11/01/20 11/02/20 11/02/20 22:30 23:30 00:30 01:30 Temp 36.5 Pulse 75 82 78 85 Resp 18 18 18 18 B/P (MAP) 96/53 (67) 109/69 (82) 116/76 (89) 114/72 (86) 11/02/20 11/02/20 11/02/20 11/02/20 02:30 03:15 03:23 03:26 Pulse 72 84 90 87 Resp 18 18 18 18 B/P (MAP) 114/74 (87) 113/73 (86) 118/71 (87) 121/79 (93) Pulse Ox 100 100 O2 Delivery Room Air Room Air 11/02/20 11/02/20 11/02/20 11/02/20 03:29 03:31 03:34 03:37 Pulse 90 87 93 106 Resp 18 18 18 18 B/P (MAP) 124/78 (93) 119/75 (90) 109/59 (76) 104/61 (75) Pulse Ox 100 100 100 100 O2 Delivery Room Air Room Air Room Air Room Air 11/02/20 11/02/20 11/02/20 11/02/20 03:40 03:43 03:46 03:49 Pulse 107 74 76 83 Resp 18 18 18 18 B/P (MAP) 99/55 (70) 108/58 (75) 107/59 (75) 99/56 (70) Pulse Ox 100 100 100 100 O2 Delivery Room Air Room Air Room Air Room Air 11/02/20 11/02/20 11/02/20 11/02/20 03:52 03:55 03:58 04:01 Pulse 78 76 102 90 Resp 18 18 18 18 B/P (MAP) 110/64 (79) 103/60 (74) 99/59 (72) 102/60 (74) Pulse Ox 100 100 100 100 O2 Delivery Room Air Room Air Room Air Room Air 11/02/20 11/02/20 11/02/20 11/02/20 04:04 04:07 04:10 04:13 Temp 36.5 Pulse 92 72 75 83 Resp 18 18 18 18 B/P (MAP) 100/59 (73) 101/59 (73) 112/68 (83) 103/62 (76) Pulse Ox 100 100 100 100 O2 Delivery Room Air Room Air Room Air Room Air 11/02/20 11/02/20 11/02/20 11/02/20 04:16 04:25 04:28 04:33 Pulse 84 77 76 79 Resp 18 18 18 18 B/P (MAP) 105/64 (78) 107/60 (76) 109/66 (80) 103/66 (78) Pulse Ox 100 100 100 100 O2 Delivery Room Air Room Air Room Air Room Air 11/02/20 11/02/20 11/02/20 11/02/20 04:45 05:00 05:15 05:37 Pulse 87 88 78 81 Resp 18 18 18 18 B/P (MAP) 101/62 (75) 114/74 (87) 106/67 (80) 125/73 (90) Pulse Ox 100 O2 Delivery Room Air Room Air Room Air Room Air 11/02/20 11/02/20 11/02/20 11/02/20 05:45 06:00 06:15 06:30 Pulse 87 93 103 88 Resp 18 18 18 18 B/P (MAP) 113/70 (84) 112/68 (83) 117/61 (79) 105/59 (74) O2 Delivery Room Air Room Air Room Air Room Air 11/02/20 11/02/20 06:45 07:00 Temp 37.0 Pulse 88 97 Resp 18 18 B/P (MAP) 104/66 (79) 114/67 (83) O2 Delivery Room Air Room Air Rupture of Membranes Amniotic Membrane Rupture Time: 041 Induction/Anesthesia Epidural Cath Placement - Time: 032 Progress/Notes Patient admitted for IOL due to GDMA1. Cytotec 100mcg given po x 1 dose last night, and patient progressed into active labor without further augmentation. SROM occured at 0400. Epidural received. She progressed to complete and 0 station when I was notified of patient ready to deliver. When I arrived, there was of note, cervix still present around head and ROP presentation, she was placed in hands and knees, and labored down to complete and +1 station at which point she was flipped back onto her back and prepped for delivery. L&D Stage2 Stage Two Stage II Date: Nov 02, 2020 Monitors and Tracing Monitor Mode: External Heart Rate: 130 Monitor Accelerations: Uniform Monitor Decelerations: Variable Collection Systems Modeler Variability: Average (6-10) Short Term Variability: Present Position: Right Occiput Anterior Presentation: Vertex Cord Descript/Complications Cord Vessel Description: 3 Vessels Delivery Type Delivery Method: Spontaneous Vaginal Anterior Shoulder: Left Episiotomy/Perineal Laceration Laceraction(s)/Extensions: No Condition of Delivery 1 minute Comment: 8 5 minute Comment: 8 Notes live male weight 8lbs Condition of Condition of Infant: Living Exam: No Observed Abnormalities Resuscitation Resuscitation: N/A - Spontaneous Resp L&D Stage3 Stage Three Stage III Date: Nov 02, 2020 Pictocin Pitocin Administration Comment: 30 mu wide open after delivery of placenta Placenta Delivery Placenta Delivery: Spontaneous Delivery Summary Summary Estimated blood loss (mL): 300 Attending at delivery: Carolina Araya DO Condition of Delivery Examined: Cervix Examined, Uterus Explored Post Hemorrhage: No Condition of Mother stable Condition of (s) stable CAROLINA ARAYA DO Nov 02, 2020 08:35
[2020-11-02] MEDS ORDERED: METHYLERGONOVINE 0.2 MG/ML (METHERGINE) AMP ONE (08:36)
[2020-11-02] MEDS ORDERED: IBUPROFEN 600 MG (MOTRIN) TAB PO ONE (08:36)
[2020-11-02] MEDS: IBUPROFEN 600 MG (MOTRIN) TAB PO SCH ×3 (08:46→20:43)
[2020-11-02] MEDS ORDERED: FERROUS SULF 325 MG (IRON) TAB PO SCH (09:00)
[2020-11-02] MEDS: WITCH HAZEL(TUCKS) 40 EA JAR TOP PRN (10:47)
[2020-11-02] MEDS ORDERED: CATHETER FLUSH 10 ML SYR IV SCH (14:00)
[2020-11-02] MEDS ORDERED: ACETAMINOPHEN 500 MG TAB (TYLENOL) PO PRN (20:30)
[2020-11-02] MEDS: DOCUSATE SODIUM 100 MG (COLACE) CAP PO SCH (20:43)
[2020-11-03] MEDS: IBUPROFEN 600 MG (MOTRIN) TAB PO SCH ×2 (03:26→08:41)
[2020-11-03 03:28] VITALS: BP 96/54
[2020-11-03 05:48] LABS: BASOPHILS # (AUTO) 0.1 10^3/uL (0.0-0.1); BASOPHILS % (AUTO) 0 % (0-10); EOSINOPHILS % (AUTO) 0 % (0-10); HEMATOCRIT 33 % (35-52); HEMOGLOBIN 10.1 g/dL (11.5-16.0); LYMPHOCYTES # (AUTO) 1.5 10^3/uL (1.0-4.0); LYMPHOCYTES % (AUTO) 10 % (12-44); MEAN CORPUSCULAR HEMOGLOBIN 27 pg (25-34); MEAN CORPUSCULAR HGB CONC 31 g/dL (32-36); MEAN CORPUSCULAR VOLUME 88 fL (80-99); MEAN PLATELET VOLUME 12.2 fL (9.0-12.2); MONOCYTES # (AUTO) 0.7 10^3/uL (0.0-1.0); MONOCYTES % (AUTO) 4 % (0-12); NEUTROPHILS # (AUTO) 12.8 10^3/uL (1.8-7.8); NEUTROPHILS % (AUTO) 85 % (42-75); PLATELET COUNT 200 10^3/uL (130-400); WHITE BLOOD COUNT 15.1 10^3/uL (4.3-11.0)
--- NOTE | 2020-11-03 06:44 | Anesthesia-Regional Post-Op ---
Regional Patient Condition Mental Status: Alert, Oriented x3 Circulation: Same as Pre-Op Headache: Absent Sensation: Full Recovery Motor Block: Absent Post Op Complications Complications None Follow Up Care/Instructions Patient Instructions None needed. Anesthesia/Patient Condition Patient is doing well, no complaints, stable vital signs, no apparent adverse anesthesia problems. No complications reported per nursing. D/C home per [facility] [place] Criteria: MAUREEN Lucero CRNA Nov 03, 2020 06:43
[2020-11-03] MEDS ORDERED: PRENATAL VITAMIN 1 EA TAB PO SCH (07:00)
--- NOTE | 2020-11-03 08:13 | Postpartum Progress Note ---
Note Note Day # 1 Subjective: Patient is without complaints. Ambulating, voiding. Tolerating a regular diet without nausea or vomiting. Normal lochia. Pain is well controlled with oral pain medications. Objective: Physical Exam: General - Alert and oriented, no apparent distress Abdomen - Soft, appropriately tender to palpation, non-distended, fundus firm at umbilicus Extremities - no edema, negative Samir's bilaterally Assessment: PPD 1 NVD Chronic anemia of Plan: Routine care. Encourage breast feeding. Encourage ambulation. Ferrous sulfate supplementation. Plan for discharge today Vitals - Labs Vital Signs - I&O Vital Signs Date Time Temp Pulse Resp B/P (MAP) Pulse Ox O2 Delivery O2 Flow Rate FiO2 11/03/20 03:28 37.2 94 16 96/54 (68) 98 Room Air 11/02/20 22:53 92 16 99/55 (70) 95 Room Air 11/02/20 20:43 36.8 87 16 106/58 (74) 100 Room Air 11/02/20 16:15 36.3 79 16 110/68 (82) 97 Room Air 11/02/20 12:24 36.4 75 18 120/69 (86) 95 Room Air 11/02/20 10:35 76 18 117/69 (85) Room Air 11/02/20 10:20 75 18 111/65 (80) Room Air 11/02/20 10:05 76 18 122/70 (87) Room Air 11/02/20 09:50 87 18 124/65 (84) Room Air 11/02/20 09:35 75 18 119/69 (86) Room Air 11/02/20 09:20 74 18 118/72 (87) Room Air 11/02/20 09:05 37.0 80 18 118/68 (85) Room Air 11/02/20 08:50 86 18 113/63 (80) Room Air 11/02/20 08:35 109 18 119/70 (86) Room Air 11/02/20 08:20 115 18 99/60 (73) Room Air I & O 11/03/20 07:00 Intake Total 1650 ml Balance 1650 ml Labs Laboratory Tests 11/03/20 05:03: White Blood Count 15.1H, Red Blood Count 3.69L, Hemoglobin 10.1L, Hematocrit 33L , Mean Corpuscular Volume 88, Mean Corpuscular Hemoglobin 27, Mean Corpuscular Hemoglobin Concent 31L, Red Cell Distribution Width 14.6H, Platelet Count 200, Mean Platelet Volume 12.2, Immature Granulocyte % (Auto) 1, Neutrophils (%) (Auto) 85H, Lymphocytes (%) (Auto) 10L, Monocytes (%) (Auto) 4, Eosinophils (%) (Auto) 0, Basophils (%) (Auto) 0, Neutrophils # (Auto) 12.8H, Lymphocytes # (Auto) 1.5, Monocytes # (Auto) 0.7, Eosinophils # (Auto) 0.0, Basophils # (Auto) 0.1, Immature Granulocyte # (Auto) 0.1 CAROLINA ARAYA DO Nov 03, 2020 08:13
--- NOTE | 2020-11-03 08:14 | Discharge Inst-Women's Service ---
Discharge Inst-Women's Serv Depart Medication/Instructions New, Converted or Re-Newed RX: RX on Chart Final Diagnosis PPD 1 NVD Problems Reviewed?: Yes Consults/Follow Up Additional Follow Up: Yes Orders/Referrals Dr. Araya in 6 weeks Activity Activity: Activity as Tolerated Driving Instructions: No Driving for 1 Week NO SMOKING: NO SMOKING Nothing Inside Vagina: No Douching, No [place], No Tampons Diet Discharge Diet: No Restrictions Symptoms to Report to : Bleeding Excessive, Pain Increased, Fever Over 101 Degrees F, Vaginal Bleeding Increase, Questions/Concerns For Any Problems or Questions: Contact Your Physician CAROLINA ARAYA DO Nov 03, 2020 08:14
[2020-11-03] MEDS ORDERED: DCS100C PO (08:15)
[2020-11-03] MEDS ORDERED: IBUP-844 PO (08:15)
[2020-11-03] MEDS ORDERED: DIBU30OI TOP (08:15)
[2020-11-03] MEDS ORDERED: FERR325T24 PO (08:15)
[2020-11-03] MEDS ORDERED: BENZ78AE5 TP (08:15)
[2020-11-03 08:38] VITALS: BP 115/72
[2020-11-03] MEDS: WITCH HAZEL(TUCKS) 40 EA JAR TOP PRN (08:41)
[2020-11-03] MEDS: DOCUSATE SODIUM 100 MG (COLACE) CAP PO SCH (08:41)
== END 2020-11-03 14:40 | disposition home or self-care (01) | DRG 807 ==
LOC: LDRP 18:49
PROVIDERS: ADMIT Obstetrics & Gynecology; ATTEND Obstetrics & Gynecology
PROC: 10E0XZZ Delivery of Products of Conception, External Approach (ICD-10-PCS; principal; 2020-11-02)
DX: O24.420 Gestational diabetes mellitus in childbirth, diet controlled (principal); Z37.0 Single live birth; Z3A.39 39 weeks gestation of pregnancy; O99.02 Anemia complicating childbirth; D53.9 Nutritional anemia, unspecified
CPT/HCPCS: 36415; 85025; 86850; 86900; 86901

== ENCOUNTER → 2021-08-03 | Outpatient (CLI) | payer BC ==
[~2021-08-03] MED LIST changes: +BENZ78AE5 TP; +DIBU30OI TOP; +DOCU-239 PO; -DULO60CA6 PO; +DULO60CA7 PO; +FERR325T24 PO; +IBUP-844 PO
== END ==
LOC: RAD
DX: Z53.9 Procedure and treatment not carried out, unspecified reason (principal)

== ENCOUNTER → 2021-11-26 | Outpatient (CLI) | payer BC ==
[~2021-11-26] MED LIST changes: +BUPR-105; -BUPR150T14
--- NOTE | 2021-11-26 09:18 | Diagnostic Imaging Report ---
INDICATION: PROCEDURE: Ultrasound abdomen complete. TECHNIQUE: Multiple real-time grayscale images were obtained of the abdomen in various projections. INDICATION: Abdominal pain FINDINGS: The liver is normal in size without focal lesions. Gallbladder surgically absent. No biliary duct dilatation. Common bile duct measures 8 mm. Pancreas is unremarkable. Spleen is normal in size. Aorta is nonaneurysmal. IVC is patent. There is a hypoechoic area in the left kidney measuring 2.4 cm likely complex cyst. There is no ascites. IMPRESSION: Likely complex cyst in the left kidney otherwise unremarkable abdominal ultrasound. Dictated by: Dictated on workstation # [id number]
== END ==
LOC: RAD 08:06
DX: R10.33 Periumbilical pain (principal)
CPT/HCPCS: 76700

== ENCOUNTER 2021-11-30 14:46 | Emergency (ER) | payer BC ==
[~2021-11-30] VITALS: Ht 167.7 cm; Wt 68.0 kg
[2021-11-30] MEDS ORDERED: NS IV 1000 ML 1,000 ML IV STA (15:07)
--- NOTE | 2021-11-30 15:11 | ED General ---
General Chief Complaint: General Problems/Pain Stated Complaint: LOW BP 97/57 Source of Information: Patient Exam Limitations: No Limitations History of Present Illness Date Seen by Provider: November 30, 2021 Time Seen by Provider: 15:08 Initial Comments Patient is a 31-year-old female with a history of fabry disease, Keyon danlos syndrome, sinus tachycardia, DVT who presents to ED with low blood pressure. Patient states her blood pressure typically runs 108/80. She noticed her blood pressure as low as 103/77. She states she cannot get her diastolic over 70. She saw her power transformer repairer at [facility] last [place] Dr. Newell for her history of orthostatic hypotension. She states she has had a Holter monitor in the past secondary to tachycardia. She is not currently on medication for the orthostatic hypotension secondary to her current breast-feeding. She states over the past week she has been feeling lightheaded dizzy headache and low blood pressure. Associated nausea. She has been drinking fluid. Normal urination without any pain or frequent urination. Denies any chest pain, shortness of breath, cough, fever, vomiting, diarrhea, abdominal pain. She states she does feel nauseous. Denies any leg swelling, leg bruising. Not currently on any blood thinner. Allergies and Home Medications Allergies Coded Allergies: hydrocodone (Verified Allergy, Unknown, 09/23/17) sulfamethoxazole (Verified Allergy, Unknown, 09/23/17) trimethoprim (Verified Allergy, Unknown, 09/23/17) Patient Home Medication List Home Medication List Reviewed: Yes Benzocaine/Menthol (Dermoplast Pain Relieving Berwind) 78 Gm Aerosol, 56 EA TP UD PRN for PAIN- SEE INSTRUCTIONS Prescribed by: CAROLINA ARAYA on 11/03/20814 Dibucaine (Dibucaine) 30 Gm Oint, 0 GM TOP UD PRN for PAIN- SEE INSTRUCTIONS Prescribed by: CAROLINA ARAYA on 11/03/20814 Docusate Sodium (Dok) 100 Mg Capsule, 100 MG PO BID PRN for CONSTIPATION-1ST LINE Prescribed by: CAROLINA ARAYA on 11/03/20814 Duloxetine HCl (Cymbalta) 60 Mg Capsule.dr, 60 MG PO DAILY, (Reported) Entered as Reported by: SHARON SANFORD on 10/23/20 0000 Ferrous Sulfate (Ferosul) 325 Mg Tablet, 325 MG PO DAILY Prescribed by: CAROLINA ARAYA on 11/03/20 08 Ibuprofen (Ibu) 600 Mg Tablet, 600 MG PO Q6HR Prescribed by: CAROLINA ARAYA on 11/03/20814 Vit No.124/Iron/FA ( Vitamin Tablet) 1 Each Tablet, 1 EACH PO DAILY, (Reported) Entered as Reported by: SHARON SANFORD on 10/23/20 0000 Review of Systems Review of Systems Constitutional: No chills, No diaphoresis; malaise, weakness EENTM: No blurred vision, No double vision, No mouth pain, No mouth swelling Respiratory: No cough, No dyspnea on exertion Cardiovascular: No chest pain, No edema Gastrointestinal: No abdominal pain, No diarrhea; nausea; No vomiting Genitourinary: No decreased output, No discharge Musculoskeletal: No back pain, No joint pain Skin: No change in color, No change in hair/nails All Other Systems Reviewed Negative Unless Noted: Yes Past Jdjrmjp-Rugpru-Victxg Hx Immunizations Up To Date Tetanus Booster (TDap): Unknown PED Vaccines UTD: Yes Seasonal Allergies Seasonal Allergies: No Past Medical History Surgeries: Yes (L KNEE SCOPE X7; KIDNEY BX; LUMBAR PUNCTURE W/BLOOD PCH: R/CARPAL TUNNEL) Gallbladder, Orthopedic Respiratory: No Cardiac: Yes (HX OF SINUS TACH) Deep Vein Thrombosis Neurological: Yes Headaches /Migraines, Neuropathy Female Reproductive Disorders: Denies Genitourinary: Yes (RENAL INSUFFICIENCY) Gastrointestinal: No Musculoskeletal: Yes Degenerate Disk Disease, Chronic Back Pain Endocrine: Yes (FABRY'S DISEASE) HEENT: No Cancer: No Psychosocial: Yes Sleep Difficulties, Anxiety, Depression Integumentary: No Blood Disorders: No Family Medical History No Pertinent Family Hx Physical Exam Vital Signs Vital Signs - First Documented 11/30/21 15:04 Temp 36.1 Pulse 101 Resp 17 B/P (MAP) 123/92 (102) Pulse Ox 96 O2 Delivery Room Air Capillary Refill : Height, Weight, BMI Height: 5'5.00" Weight: 159lbs. 0oz. [id number]; 29.04 BMI Method:Stated General Appearance: No Apparent Distress, WD/WN Eyes: Bilateral Eye Normal Inspection, Bilateral Eye PERRL, Bilateral Eye EOMI HEENT: PERRL/EOMI, TMs Normal, Normal ENT Inspection, Pharynx Normal Neck: Full Range of Motion, Normal Inspection, Non Tender, Supple Respiratory: Chest Non Tender, Lungs Clear, Normal Breath Sounds, No Accessory Muscle Use, No Respiratory Distress Cardiovascular: Regular Rate, Rhythm, No Edema, No Gallop, No JVD, No Murmur Gastrointestinal: Normal Bowel Sounds, No Organomegaly, No Pulsatile Mass, Non Tender, Soft Back: Normal Inspection, No CVA Tenderness, No Vertebral Tenderness Extremity: Normal Capillary Refill, Normal Inspection, Normal Range of Motion, Non Tender, No Calf Tenderness Neurologic/Psychiatric: Alert, Oriented x3, No Motor/Sensory Deficits, Normal Mood/Affect, equipment manager II-XII Norm as Tested Skin: Normal Color, Warm/Dry Progress/Results/Core Measures Suspected Sepsis SIRS Temperature: Pulse: Respiratory Rate: Laboratory Tests 11/30/21 15:17: White Blood Count 5.1 Blood Pressure / Mean: Laboratory Tests 11/30/21 15:17: Creatinine 0.81, Platelet Count 204, Total Bilirubin 0.6 Results/Orders Lab Results Laboratory Tests Test 11/30/21 15:17 11/30/21 15:24 Range/Units White Blood Count 5.1 4.3-11.0 10^3/uL Red Blood Count 4.63 3.80-5.11 10^6/uL Hemoglobin 13.8 11.5-16.0 g/dL Hematocrit 43 35-52 % Mean Corpuscular Volume 92 80-99 fL Mean Corpuscular Hemoglobin 30 25-34 pg Mean Corpuscular Hemoglobin Concent 32 32-36 g/dL Red Cell Distribution Width 12.6 10.0-14.5 % Platelet Count 204 130-400 10^3/uL Mean Platelet Volume 10.8 9.0-12.2 fL Immature Granulocyte % (Auto) 0 % Neutrophils (%) (Auto) 59 42-75 % Lymphocytes (%) (Auto) 34 12-44 % Monocytes (%) (Auto) 5 0-12 % Eosinophils (%) (Auto) 2 0-10 % Basophils (%) (Auto) 1 0-10 % Neutrophils # (Auto) 3.0 1.8-7.8 10^3/uL Lymphocytes # (Auto) 1.7 1.0-4.0 10^3/uL Monocytes # (Auto) 0.3 0.0-1.0 10^3/uL Eosinophils # (Auto) 0.1 0.0-0.3 10^3/uL Basophils # (Auto) 0.1 0.0-0.1 10^3/uL Immature Granulocyte # (Auto) 0.0 0.0-0.1 10^3/uL Sodium Level 140 135-145 MMOL/L Potassium Level 4.2 3.6-5.0 MMOL/L Chloride Level 105 98-107 MMOL/L Carbon Dioxide Level 25 21-32 MMOL/L Anion Gap 10 5-14 MMOL/L Blood Urea Nitrogen 11 7-18 MG/DL Creatinine 0.81 0.60-1.30 MG/DL Estimat Glomerular Filtration Rate 101 BUN/Creatinine Ratio 14 Glucose Level 82 70-105 MG/DL Calcium Level 9.4 8.5-10.1 MG/DL Corrected Calcium 9.1 8.5-10.1 MG/DL Total Bilirubin 0.6 0.1-1.0 MG/DL Aspartate Amino Transf (AST/SGOT) 15 5-34 U/L Alanine Aminotransferase (ALT/SGPT) 11 0-55 U/L Alkaline Phosphatase 87 40-136 U/L Total Protein 7.1 6.4-8.2 GM/DL Albumin 4.4 3.2-4.5 GM/DL Urine Color YELLOW Urine Clarity CLEAR Urine pH 6.5 5-9 Urine Specific Horatio 1.015 L 1.016-1.022 Urine Protein NEGATIVE NEGATIVE Urine Glucose (UA) NEGATIVE NEGATIVE Urine Ketones NEGATIVE NEGATIVE Urine Nitrite NEGATIVE NEGATIVE Urine Bilirubin NEGATIVE NEGATIVE Urine Urobilinogen 0.2 < = 1.0 MG/DL Urine Leukocyte Esterase NEGATIVE NEGATIVE Urine RBC (Auto) NEGATIVE NEGATIVE Urine RBC RARE /HPF Urine WBC NONE /HPF Urine Squamous Epithelial Cells 0-2 /HPF Urine Crystals NONE /LPF Urine Bacteria NEGATIVE /HPF Urine Casts NONE /LPF Urine Mucus NEGATIVE /LPF Urine Culture Indicated NO My Orders Orders - TIA DUMONT Ua Culture If Indicated (11/30/21 14:52) Cbc With Automated Diff (11/30/21 15:07) Comprehensive Metabolic Panel (11/30/21 15:07) Orthostatic Vital Signs (Adult (11/30/21 15:07) Ekg Tracing (11/30/21 15:07) Ns Iv 1000 Ml (Sodium Chloride 0.9%) (11/30/21 15:07) Vital Signs/I&O 5/27/22 5/27/22 5/27/22 15:04 15:30 16:30 Temp 36.1 Pulse 101 86 85 101 115 Resp 17 16 B/P (MAP) 123/92 (102) 107/74 (85) 100/78 109/79 (89) 105/78 (87) Pulse Ox 96 98 O2 Delivery Room Air Room Air Capillary Refill : ECG Comment Sinus rhythm, 90 bpm, QRS duration 85 MS, QTc 386 MS Departure Communication (PCP) Blood pressure has been close to her current baseline Patient baseline is 107/80. She was not orthostatic hypotensive. EKG showed normal sinus rhythm without evidence of cardiac arrhythmia. Lab work was otherwise unremarkable. Urinalysis negative for infection. She states she has a history of ongoing orthostatic hypotension and dizziness and currently being managed by cardiology at [facility]. They do not want to start on any type of medications at this time secondary to her current breast-feeding. They recommend continue monitoring symptoms. She states that this has got worse recently. Patient was given a liter of fluid here. Continue to maintain a blood pressure between 100- 120 systolic and 70-80 diastolic. she has a steady gait. No meningeal signs. Afebrile. She does not appear toxic or septic. She still states she has some mild dizziness but symptoms improved some. Recommend outpatient follow-up with her power transformer repairer who is currently managing her current symptoms. Patient has been in contact over the phone during her stay here. Denies of any chest pain, cough or shortness of breath or abdominal pain. No vomiting or diarrhea. Outpatient follow-up. Return precaution were discussed. Impression Primary Impression: Hypotension Additional Impression: Dizziness Disposition: 01 HOME, SELF-CARE Condition: Stable Departure-Patient Inst. Decision time for Depature: 16:22 Referrals: NO,LOCAL PHYSICIAN (PCP/Family) Primary Care Physician Patient Instructions: Low Blood Pressure (DC) Add. Discharge Instructions: Recommend follow-up with your power transformer repairer for further evaluation. All discharge instructions reviewed with patient and/or family. Voiced und erstanding. TIA DUMONT November 30, 2021 15:11
[2021-11-30 15:30] VITALS: BP_SYST 105; BP_SYST 107; BP_SYST 109; BP_DIAS 74; BP_DIAS 78; BP_DIAS 79
[2021-11-30 15:32] LABS: BASOPHILS # (AUTO) 0.1 10^3/uL (0.0-0.1); BASOPHILS % (AUTO) 1 % (0-10); EOSINOPHILS # (AUTO) 0.1 10^3/uL (0.0-0.3); EOSINOPHILS % (AUTO) 2 % (0-10); HEMATOCRIT 43 % (35-52); HEMOGLOBIN 13.8 g/dL (11.5-16.0); LYMPHOCYTES # (AUTO) 1.7 10^3/uL (1.0-4.0); LYMPHOCYTES % (AUTO) 34 % (12-44); MEAN CORPUSCULAR HEMOGLOBIN 30 pg (25-34); MEAN CORPUSCULAR HGB CONC 32 g/dL (32-36); MEAN CORPUSCULAR VOLUME 92 fL (80-99); MEAN PLATELET VOLUME 10.8 fL (9.0-12.2); MONOCYTES # (AUTO) 0.3 10^3/uL (0.0-1.0); MONOCYTES % (AUTO) 5 % (0-12); NEUTROPHILS % (AUTO) 59 % (42-75); PLATELET COUNT 204 10^3/uL (130-400); WHITE BLOOD COUNT 5.1 10^3/uL (4.3-11.0)
[2021-11-30 15:36] LABS: BILIRUBIN,URINE NEGATIVE (NEGATIVE); CLARITY,URINE CLEAR; COLOR,URINE YELLOW; GLUCOSE, URINE (UA) NEGATIVE (NEGATIVE); KETONES,URINE NEGATIVE (NEGATIVE); LEUKOCYTE ESTERASE ,URINE NEGATIVE (NEGATIVE); NITRITE,URINE NEGATIVE (NEGATIVE); PH,URINE 6.5 (5-9); PROTEIN,URINE NEGATIVE (NEGATIVE)
[2021-11-30 15:42] LABS: ALBUMIN 4.4 GM/DL (3.2-4.5); POTASSIUM 4.2 MMOL/L (3.6-5.0)
[2021-11-30 15:44] LABS: CALCIUM 9.4 MG/DL (8.5-10.1)
[2021-11-30 15:45] LABS: TOTAL PROTEIN 7.1 GM/DL (6.4-8.2)
[2021-11-30 15:45] LABS: BACTERIA,URINE NEGATIVE /HPF; RBC,URINE RARE /HPF; SQUAMOUS EPITHELIAL CELL,UR 0-2 /HPF
[2021-11-30 15:47] LABS: BILIRUBIN,TOTAL 0.6 MG/DL (0.1-1.0)
[2021-11-30 15:48] LABS: CREATININE SERUM 0.81 MG/DL (0.60-1.30)
[2021-11-30 16:30] VITALS: BP 100/78
== END 2021-11-30 16:35 | disposition home or self-care (01) ==
LOC: EDUNIT# 14:46 → ER 14:47
DX: I95.1 Orthostatic hypotension (principal); Q79.60 Ehlers-Danlos syndrome, unspecified
CPT/HCPCS: 36415; 80053; 81000; 85025

== ENCOUNTER 2022-03-23 22:05 | Emergency (ER) | payer BC ==
[~2022-03-23] VITALS: Ht 165 cm; Wt 64.9 kg
[2022-03-23 22:50] VITALS: BP 116/75
[2022-03-24 00:12] LABS: BASOPHILS % (AUTO) 1 % (0-10); EOSINOPHILS # (AUTO) 0.2 10^3/uL (0.0-0.3); EOSINOPHILS % (AUTO) 4 % (0-10); HEMATOCRIT 42 % (35-52); HEMOGLOBIN 13.6 g/dL (11.5-16.0); LYMPHOCYTES # (AUTO) 1.7 10^3/uL (1.0-4.0); LYMPHOCYTES % (AUTO) 40 % (12-44); MEAN CORPUSCULAR HEMOGLOBIN 30 pg (25-34); MEAN CORPUSCULAR HGB CONC 32 g/dL (32-36); MEAN CORPUSCULAR VOLUME 94 fL (80-99); MEAN PLATELET VOLUME 10.6 fL (9.0-12.2); MONOCYTES # (AUTO) 0.2 10^3/uL (0.0-1.0); MONOCYTES % (AUTO) 5 % (0-12); NEUTROPHILS # (AUTO) 2.1 10^3/uL (1.8-7.8); NEUTROPHILS % (AUTO) 51 % (42-75); PLATELET COUNT 185 10^3/uL (130-400); WHITE BLOOD COUNT 4.2 10^3/uL (4.3-11.0)
[2022-03-24] MEDS ORDERED: KETOROLAC 30 MG/ML VIAL IVP ONE (00:15)
[2022-03-24 00:20] LABS: ALBUMIN 4.2 GM/DL (3.2-4.5); POTASSIUM 4.1 MMOL/L (3.6-5.0)
[2022-03-24 00:22] LABS: CALCIUM 9.2 MG/DL (8.5-10.1)
[2022-03-24 00:23] LABS: TOTAL PROTEIN 6.7 GM/DL (6.4-8.2)
[2022-03-24 00:25] LABS: BILIRUBIN,TOTAL 0.8 MG/DL (0.1-1.0)
[2022-03-24 00:27] LABS: CREATININE SERUM 0.91 MG/DL (0.60-1.30)
[2022-03-24 00:38] LABS: ERYTHROCYTE SEDIMENTATION RATE 4 MM/HR (0-20)
[2022-03-24] MEDS ORDERED: cefTRIAXone 1 GM PRE-MIX 50 ML IV STA (00:41)
--- NOTE | 2022-03-24 00:49 | ED EENT ---
History of Present Illness General Chief Complaint: Dental Problems/Pain Stated Complaint: DENTAL INFECTION,SWELLING IN R MORMONISM AND NECK Nursing Triage Note: PT presents with R side dental pain. She was at dentist yesterday and given PCN for infected tooth. Today she reports swelling into sinuses and eye, down R side of neck. Source: patient History of Present Illness Date Seen by Provider: Mar 23, 2022 Time Seen by Provider: 22:42 Allergies and Home Medications Allergies Coded Allergies: hydrocodone (Verified Allergy, Unknown, 09/23/17) sulfamethoxazole (Verified Allergy, Unknown, 09/23/17) trimethoprim (Verified Allergy, Unknown, 09/23/17) Patient Home Medication List Benzocaine/Menthol (Dermoplast Pain Relieving [place]) 78 Gm Aerosol, 56 EA TP UD PRN for PAIN- SEE INSTRUCTIONS Prescribed by: CAROLINA ARAYA on 11/03/20814 Cefdinir (Cefdinir) 300 Mg Capsule, 300 MG PO BID Prescribed by: MATT LEON on 03/24/2252 Cetirizine HCl/Pseudoephedrine (Zyrtec-D Tablet) 5 Mg-120 Mg Tab.er.12h, 1 EACH PO BID Prescribed by: MATT LEON on 03/24/2252 Dibucaine (Dibucaine) 30 Gm Oint, 0 GM TOP UD PRN for PAIN- SEE INSTRUCTIONS Prescribed by: CAROLINA ARAYA on 11/03/20814 Docusate Sodium (Dok) 100 Mg Capsule, 100 MG PO BID PRN for CONSTIPATION-1ST LINE Prescribed by: CAROLINA ARAYA on 11/03/20814 Duloxetine HCl (Cymbalta) 60 Mg Capsule.dr, 60 MG PO DAILY, (Reported) Entered as Reported by: SHARON SANFORD on 10/23/20 0000 Ferrous Sulfate (Ferosul) 325 Mg Tablet, 325 MG PO DAILY Prescribed by: CAROLINA ARAYA on 11/03/20814 Fluticasone Propionate (Flonase Allergy Relief) 50 Mcg/Actuation [place].susp, 2 SPRAY NS DAILY Prescribed by: MATT LEON on 03/24/2252 Ibuprofen (Ibu) 600 Mg Tablet, 600 MG PO Q6HR Prescribed by: CAROLINA ARAYA on 11/03/20814 Vit No.124/Iron/FA ( Vitamin Tablet) 1 Each Tablet, 1 EACH PO DAILY, (Reported) Entered as Reported by: SHARON SANFORD on 10/23/20 0000 Past Pmjjipf-Khpujv-Ptbkfy Hx Immunizations Up To Date Tetanus Booster (TDap): Unknown PED Vaccines UTD: Yes Seasonal Allergies Seasonal Allergies: No Past Medical History Surgeries: Yes (L KNEE SCOPE X7; KIDNEY BX; LUMBAR PUNCTURE W/BLOOD PCH: R/CARPAL TUNNEL) Gallbladder, Orthopedic Respiratory: No Cardiac: Yes (HX OF SINUS TACH) Deep Vein Thrombosis Neurological: Yes Headaches /Migraines, Neuropathy Female Reproductive Disorders: Denies Genitourinary: Yes (RENAL INSUFFICIENCY) Gastrointestinal: No Musculoskeletal: Yes Degenerate Disk Disease, Chronic Back Pain Endocrine: Yes (FABRY'S DISEASE) HEENT: No Cancer: No Psychosocial: Yes Sleep Difficulties, Anxiety, Depression Integumentary: No Blood Disorders: No Family Medical History No Pertinent Family Hx Physical Exam Vital Signs Vital Signs - First Documented 03/23/22 22:32 Temp 36.8 Pulse 81 Resp 16 B/P (MAP) 116/75 (89) Height, Weight, BMI Height: 5'5.00" Weight: 159lbs. 0oz. 72.979255cs; 23.00 BMI Method:Stated Progress/Results/Core Measures Results/Orders Lab Results Laboratory Tests Test 03/24/22 00:00 Range/Units White Blood Count 4.2 L 4.3-11.0 10^3/uL Red Blood Count 4.49 3.80-5.11 10^6/uL Hemoglobin 13.6 11.5-16.0 g/dL Hematocrit 42 35-52 % Mean Corpuscular Volume 94 80-99 fL Mean Corpuscular Hemoglobin 30 25-34 pg Mean Corpuscular Hemoglobin Concent 32 32-36 g/dL Red Cell Distribution Width 13.2 10.0-14.5 % Platelet Count 185 130-400 10^3/uL Mean Platelet Volume 10.6 9.0-12.2 fL Immature Granulocyte % (Auto) 0 % Neutrophils (%) (Auto) 51 42-75 % Lymphocytes (%) (Auto) 40 12-44 % Monocytes (%) (Auto) 5 0-12 % Eosinophils (%) (Auto) 4 0-10 % Basophils (%) (Auto) 1 0-10 % Neutrophils # (Auto) 2.1 1.8-7.8 10^3/uL Lymphocytes # (Auto) 1.7 1.0-4.0 10^3/uL Monocytes # (Auto) 0.2 0.0-1.0 10^3/uL Eosinophils # (Auto) 0.2 0.0-0.3 10^3/uL Basophils # (Auto) 0.0 0.0-0.1 10^3/uL Immature Granulocyte # (Auto) 0.0 0.0-0.1 10^3/uL Erythrocyte Sedimentation Rate 4 0-20 MM/HR Sodium Level 141 135-145 MMOL/L Potassium Level 4.1 3.6-5.0 MMOL/L Chloride Level 105 98-107 MMOL/L Carbon Dioxide Level 21 21-32 MMOL/L Anion Gap 15 H 5-14 MMOL/L Blood Urea Nitrogen 10 7-18 MG/DL Creatinine 0.91 0.60-1.30 MG/DL Estimat Glomerular Filtration Rate 87 BUN/Creatinine Ratio 11 Glucose Level 73 70-105 MG/DL Lactic Acid Level 0.72 0.50-2.00 MMOL/L Calcium Level 9.2 8.5-10.1 MG/DL Corrected Calcium 9.0 8.5-10.1 MG/DL Total Bilirubin 0.8 0.1-1.0 MG/DL Aspartate Amino Transf (AST/SGOT) 16 5-34 U/L Alanine Aminotransferase (ALT/SGPT) 10 0-55 U/L Alkaline Phosphatase 71 40-136 U/L C-Reactive Protein High Sensitivity 0.18 0.00-0.50 MG/DL Total Protein 6.7 6.4-8.2 GM/DL Albumin 4.2 3.2-4.5 GM/DL Procalcitonin 0.02 <0.10 NG/ML Serum Test, Qualitative NEGATIVE NEGATIVE Influenza Type A (RT-PCR) Not Detected Not Detecte Influenza Type B (RT-PCR) Not Detected Not Detecte SARS-CoV-2 RNA (RT-PCR) Not Detected Not Detecte My Orders Orders - MATT LEON DO Ed Iv/Invasive Line Start (03/23/22 22:54) Monitor-Rhythm Ecg Trace Only (03/23/22 22:54) Cbc With Automated Diff (03/23/22 22:54) Comprehensive Metabolic Panel (03/23/22 22:54) Hs C Reactive Protein (03/23/22 22:54) Hcg,Qualitative Serum (03/23/22 22:54) Lactic Acid Analyzer (03/23/22 22:54) Procalcitonin (Pct) (03/23/22 22:54) Blood Culture (03/23/22 22:54) Erythrocyte Sedimentation Rate (03/23/22 22:54) Covid 19 Inhouse Test (03/23/22 22:54) Influenza A And B By Pcr (03/23/22 22:54) Isolation Central Supply Req (03/23/22 22:54) Ct Maxillofacial W (03/23/22 22:54) Ketorolac Injection (Toradol Injection) (03/24/22 00:15) Ceftriaxone 1 Gm Pre-Mix (Rocephin 1 Gm (03/24/22 00:41) Medications Given in ED Current Medications Medications Dose Ordered Sig/Adele Route Start Time Stop Time Status Last Admin Dose Admin Ketorolac Tromethamine 30 mg ONCE ONCE IVP 03/24/22 00:15 03/24/22 00:16 DC 03/24/22 00:40 30 MG Vital Signs/I&O 03/23/22 22:32 Temp 36.8 Pulse 81 Resp 16 B/P (MAP) 116/75 (89) Blood Pressure Mean: 89 Departure Impression Primary Impression: DENTAL CARIES WITH INFECTION Additional Impression: SINUSITIS ODONTOGENIC Disposition: 01 HOME, SELF-CARE Condition: Stable Departure-Patient Inst. Decision time for Depature: 00:44 Referrals: NO,LOCAL PHYSICIAN (PCP/Family) Primary Care Physician Patient Instructions: Sinusitis in Adults, Tooth Abscess (DC), Tooth Decay, Adult (DC) Add. Discharge Instructions: STOP PENICILLIN AND START NEW ANTIBIOTIC TYLENOL NEEDED FOR PAIN WARM COMPRESSES TO YOUR FACE AT 20 MINUTE INTERVALS TYLENOL 1 GRAM PLUS MOTRIN 600 MG 4 TIMES A DAY FOR PAIN KEEP YOUR DENTIST APPOINTMENT ON FRIDAY YOU MAY CONTINUE TO BREASTFEED WITH THE PRESCRIBED MEDICATIONS All discharge instructions reviewed with patient and/or family. Voiced unde rstanding. Scripts Cetirizine HCl/Pseudoephedrine (Zyrtec-D Tablet) 5 Mg-120 Mg Tab.er.12h 1 EACH PO BID, #20 TAB Prov: MATT LEON DO 03/24/22 Fluticasone Propionate (Flonase Allergy Relief) 50 Mcg/Actuation [place].susp 2 SPRAY NS DAILY, #1 EACH 2 SPRAYS PER NOSTRIL DAILY X 2 DAYS THEN 1 SPRAY DAILY Prov: MATT LEON DO 03/24/22 Cefdinir (Cefdinir) 300 Mg Capsule 300 MG PO BID, #20 CAP Prov: MATT LEON DO 03/24/22 MATT LEON DO Mar 24, 2022 00:49
[2022-03-24] MEDS ORDERED: CETI1TAB61 PO (00:53)
[2022-03-24] MEDS ORDERED: CEFD300C3 PO (00:53)
[2022-03-24] MEDS ORDERED: FLUT9.9S NS (00:53)
[2022-03-24] MEDS ORDERED: LACTATED RINGERS 1,000 ML IV ONE (01:00)
[2022-03-24] MEDS ORDERED: HOLD METFORMIN - RECEIVED CONTRAST 20 ML VIAL IV SCH (02:15)
[2022-03-24] MEDS ORDERED: NS 100 ML (IVPB) BAG IV ONE (02:15)
[2022-03-24] MEDS ORDERED: IOHEXOL 350 MG/ML 100 ML (OMNIPAQUE 350) VIAL IV ONE (02:15)
--- NOTE | 2022-03-24 07:09 | Diagnostic Imaging Report ---
PROCEDURE: CT maxillofacial with contrast. TECHNIQUE: After intravenous administration of contrast, axial images were obtained through the face and reformatted into coronal and sagittal planes. Auto Exposure Controls were utilized during the CT exam to meet ALARA standards for radiation dose reduction. INDICATION: Pain and swelling of the face COMPARISON: None FINDINGS: The pterygoid plates are intact. The zygomatic arches are intact. The mandible is intact. The maxilla is intact. The nasal bones appear intact. The orbits are intact. The globes are intact. There is no post septal edema. There is moderate mucosal thickening in the posterior inferior right maxillary sinus. There are prominent right molar dental caries. The remainder of the paranasal sinuses appear clear. No fluid levels are seen. No soft tissue fluid collections are seen. No soft tissue gas is seen. IMPRESSION: 1. Right maxillary mucosal thickening, may be odontogenic. No fluid level is seen. 2. No acute osseous abnormality seen in the face. No significant changes from the preliminary report. Dictated by: Dictated on workstation # [id number]
== END 2022-03-24 01:38 | disposition home or self-care (01) ==
LOC: EDUNIT# 22:05 → ER 22:07
DX: K02.9 Dental caries, unspecified (principal); J32.9 Chronic sinusitis, unspecified; Z20.822 Contact with and (suspected) exposure to COVID-19; Z28.310 Unvaccinated for COVID-19
CPT/HCPCS: 36415; 70487; 80053; 83605; 84145; 84703; 85025; 85652; 86141; 87040; 87636; 93041

== ENCOUNTER 2022-03-28 17:20 | Emergency (ER) | payer BC ==
[~2022-03-28] VITALS: Ht 165 cm; Wt 64.0 kg
[~2022-03-28 17:20] MED LIST changes: +CEFD300C3 PO; +CETI1TAB61 PO; +FLUT9.9S NS
--- NOTE | 2022-03-28 18:10 | ED General ---
General Chief Complaint: Breast Complaints Stated Complaint: RASH ON BREASTS Nursing Triage Note: ARRIVED VIA AMB TO TRIAGE ET THINKS SHE IS DEVELOPING MASTITIS. Source of Information: Patient History of Present Illness Date Seen by Provider: Mar 28, 2022 Time Seen by Provider: 17:56 Initial Comments PT ARRIVES VIA POV FROM HOME PT WAS SEEN HERE ON Friday03/23/22 FOR DENTAL INFECTION, AND STARTED ON CEFDINIR THOSE SYMPTOMS ARE MUCH IMPROVED, BUT NOT GONE. FACE IS NO LONGER SWOLLEN, BUT STILL HAS SOME SWELLING TO GUMS AROUND AFFECTED TEETH NO FEVER TODAY AT 0500, SHE BEGAN TO HAVE REDNESS AND PAIN TO LEFT BREAST, AND NOW IS ALSO ON RIGHT BREAST--AROUND NIPPLES AND SPREADING OUTWARD PT IS BREAST FEEDING CHILD ALSO PINCHES HER BREASTS CONSTANTLY STATES SHE HAS HAD MASTITIS BEFORE AND THIS DOES NOT FEEL THE SAME--HER BREASTS ARE NOT ENGORGED AND NONE OF HER MILK DUCTS APPEAR TENDER OR INFLAMED. THIS APPEARS TO BE TO THE SKIN OF BREAST AND NIPPLE DOES NOT ITCH--IS PAINFUL AND MARK. CHILD DOES NOT HAVE ANY SYMPTOMS, AND IS FEEDING WELL PCP :HAIDER-K Allergies and Home Medications Allergies Coded Allergies: hydrocodone (Verified Allergy, Unknown, 09/23/17) sulfamethoxazole (Verified Allergy, Unknown, 09/23/17) trimethoprim (Verified Allergy, Unknown, 09/23/17) Patient Home Medication List Home Medication List Reviewed: Yes Amoxicillin/Potassium Clav (Amox Tr-K Clv 875-125 mg Tab) 875 Mg-125 Mg Tablet, 1 EACH PO BID Prescribed by: MATT LEON on 03/28/221810 Benzocaine/Menthol (Dermoplast Pain Relieving [place]) 78 Gm Aerosol, 56 EA TP UD PRN for PAIN- SEE INSTRUCTIONS Prescribed by: CAROLINA ARAYA on 11/03/2015 Cefdinir (Cefdinir) 300 Mg Capsule, 300 MG PO BID Prescribed by: MATT LEON on 03/24/2252 Cetirizine HCl/Pseudoephedrine (Zyrtec-D Tablet) 5 Mg-120 Mg Tab.er.12h, 1 EACH PO BID Prescribed by: MATT LEON on 03/24/22 005 Dibucaine (Dibucaine) 30 Gm Oint, 0 GM TOP UD PRN for PAIN- SEE INSTRUCTIONS Prescribed by: CAROLINA ARAYA on 11/03/20 0815 Docusate Sodium (Dok) 100 Mg Capsule, 100 MG PO BID PRN for CONSTIPATION-1ST LINE Prescribed by: CAROLINA ARAYA on 11/03/20 0815 Duloxetine HCl (Cymbalta) 60 Mg Capsule.dr, 60 MG PO DAILY, (Reported) Entered as Reported by: SHARON SANFORD on 10/23/20 0000 Ferrous Sulfate (Ferosul) 325 Mg Tablet, 325 MG PO DAILY Prescribed by: CAROLINA ARAYA on 11/03/20 0815 Fluticasone Propionate (Flonase Allergy Relief) 50 Mcg/Actuation [place].susp, 2 SPRAY NS DAILY Prescribed by: MATT LEON on 03/24/22 0053 Ibuprofen (Ibu) 600 Mg Tablet, 600 MG PO Q6HR Prescribed by: CAROLINA ARAYA on 11/03/20 0815 Mupirocin (Mupirocin) 2 % Oint...g., 22 GM TP BID Prescribed by: MATT LEON on 03/28/22 181 Vit No.124/Iron/FA ( Vitamin Tablet) 1 Each Tablet, 1 EACH PO DAILY, (Reported) Entered as Reported by: SHARON SANFORD on 10/23/20 0000 Review of Systems Review of Systems Constitutional: no symptoms reported EENTM: see HPI Respiratory: no symptoms reported Cardiovascular: no symptoms reported Gastrointestinal: no symptoms reported Genitourinary: no symptoms reported Musculoskeletal: no symptoms reported Skin: see HPI Psychiatric/Neurological: No Symptoms Reported Hematologic/Lymphatic: No Symptoms Reported Immunological/Allergic: no symptoms reported Past Eoxeyqx-Tkrdid-Fokoue Hx Patient Social History Tobacco Use?: No Substance use?: No Alcohol Use?: No Immunizations Up To Date Tetanus Booster (TDap): Unknown PED Vaccines UTD: Yes First/Initial COVID19 Vaccinat: 03/27 Second COVID19 Vaccination [place]: 03/27 Third COVID19 Vaccination Date: 03/27 COVID19 Vaccine Documentation Improvement Specialist: DAY[place] Seasonal Allergies Seasonal Allergies: No Past Medical History Surgeries: Yes (L KNEE SCOPE X7; KIDNEY BX; LUMBAR PUNCTURE W/BLOOD PCH: R/CARPAL TUNNEL) Gallbladder, Orthopedic Respiratory: No Cardiac: Yes (HX OF SINUS TACH) Deep Vein Thrombosis Neurological: Yes Headaches /Migraines, Neuropathy Female Reproductive Disorders: Denies Genitourinary: Yes (RENAL INSUFFICIENCY) Gastrointestinal: No Musculoskeletal: Yes Degenerate Disk Disease, Chronic Back Pain Endocrine: Yes (FABRY'S DISEASE) HEENT: No Cancer: No Psychosocial: Yes Sleep Difficulties, Anxiety, Depression Integumentary: No Blood Disorders: No Family Medical History No Pertinent Family Hx Physical Exam Vital Signs Vital Signs - First Documented 03/28/22 17:24 Temp 36.7 Pulse 85 Resp 16 B/P (MAP) 127/85 (99) Pulse Ox 98 O2 Delivery Room Air Capillary Refill : Less Than 3 Seconds Height, Weight, BMI Height: 5'5.00" Weight: 159lbs. 0oz. 72.970794gk; 23.00 BMI Method:Stated General Appearance: No Apparent Distress, WD/WN HEENT: PERRL/EOMI, Other (NO FACIAL SWELLING OR ERYTHEMA. MILD RESIDUAL GUM INFLAMMATION AROUND AFFECTED TEETH) Neck: Full Range of Motion, Normal Inspection, Non Tender, Supple Respiratory: Chest Non Tender, Normal Breath Sounds, No Accessory Muscle Use, No Respiratory Distress Cardiovascular: Regular Rate, Rhythm Extremity: Normal Inspection Neurologic/Psychiatric: Alert, Oriented x3 Skin: Normal Color, Warm/Dry, Other (BREASTS ARE SOFT AND NON-ENGORGED. NO WARMTH TO AREA. THERE IS MILD ERYTHEMA PRESENT AROUND BOTH NIPPLES, AND EXTENDING BEYOND NIPPLES--LEFT > RIGHT, BUT NO INDURATION, NO FLUCTUANCE. NO STREAKS. NO SIGNIFICANT TENDERNESS. MARGINS ARE FAINT. DOES NOT HAVE APPEARANCE OF YEAST/FUNGAL INFECTION. NO EVIDENCE OF MASTITIS--APPEARS TO BE SUPERFICIAL SKIN ERYTHEMA. ) Progress/Results/Core Measures Suspected Sepsis SIRS Temperature: Pulse: 85 Respiratory Rate: 16 Blood Pressure 127 /85 Mean: 99 Results/Orders Vital Signs/I&O 03/28/22 17:24 Temp 36.7 Pulse 85 Resp 16 B/P (MAP) 127/85 (99) Pulse Ox 98 O2 Delivery Room Air Capillary Refill : Less Than 3 Seconds Blood Pressure Mean: 99 Departure Impression Primary Impression: Cellulitis of female breast Disposition: 01 HOME, SELF-CARE Condition: Stable Departure-Patient Inst. Decision time for Depature: 18:10 Referrals: [facility] Patient Instructions: Cellulitis (Skin Infection), Adult (DC) Add. Discharge Instructions: STOP CEFDINIR TYLENOL AND MOTRIN NEEDED FOR PAIN [facility], RETURN TO ER IF WORSE All discharge instructions reviewed with patient and/or family. Voiced understanding. Scripts Mupirocin (Mupirocin) 2 % Oint...g. 22 GM TP BID, #1 TUBE Prov: MATT LEON DO 03/28/22 Amoxicillin/Potassium Clav (Amox Tr-K Clv 875-125 mg Tab) 875 Mg-125 Mg Tablet 1 EACH PO BID for 10 Days, #20 TAB Prov: MATT LEON DO 03/28/22 MATT LEON DO Mar 28, 2022 18:10
[2022-03-28] MEDS ORDERED: MUPI22OI2 TP (18:11)
[2022-03-28] MEDS ORDERED: AMOX1TAB12 PO (18:11)
[2022-03-28 18:19] VITALS: BP 127/85
== END 2022-03-28 18:20 | disposition home or self-care (01) ==
LOC: EDUNIT# 17:20 → ER 17:22
DX: N61.0 Mastitis without abscess (principal)
CPT/HCPCS: 99282

== ENCOUNTER 2022-06-07 14:42 | Emergency (ER) | payer BC ==
[~2022-06-07] VITALS: Ht 167.7 cm; Wt 69.5 kg
[~2022-06-07 14:42] MED LIST changes: +AMOX1TAB12 PO; +MUPI22OI2 TP
--- NOTE | 2022-06-07 15:41 | ED GU-Female ---
General Chief Complaint: - Reproductive Stated Complaint: VAGINAL BLEEDING Nursing Triage Note: pt states she started her period on 06/05, passed 3 large clots and has had 29ml of blood since then, states Dr Cormier office sent her to ED Source: patient Exam Limitations: no limitations History of Present Illness Date Seen by Provider: Jun 07, 2022 Time Seen by Provider: 15:27 Initial Comments Patient is a 32yo female who is 2y post still her child - normal regular menses. LMP 06/05/22. in the last 24 hours more cramping than usual. SHe has had intermittent sharp right sided pelvic discomfort. Uses a DIVA cup as she is sensitive to pads and tampons. Normally when she changes it - it has about 5ml of blood in it; over the last day it has been up to 7.5-12ml each time. She states 29ml of blood in the last day total. Which is a lot more than usual for her. SHe is concerned about this, SHe has a history of depression, POTS, chronic neuropathic pain and B12 and Vit D deficiency. SHe called her OB providers office today and they recommended she come get evaluated. She complains of feeling a little light headed and weak, colder than normal. Allergies and Home Medications Allergies Coded Allergies: hydrocodone (Verified Allergy, Unknown, 09/23/17) sulfamethoxazole (Verified Allergy, Unknown, 09/23/17) trimethoprim (Verified Allergy, Unknown, 09/23/17) Patient Home Medication List Home Medication List Reviewed: Yes Amoxicillin/Potassium Clav (Amox Tr-K Clv 875-125 mg Tab) 875 Mg-125 Mg Tablet, 1 EACH PO BID Prescribed by: MATT LEON on 03/28/221810 Benzocaine/Menthol (Dermoplast Pain Relieving [place]) 78 Gm Aerosol, 56 EA TP UD PRN for PAIN- SEE INSTRUCTIONS Prescribed by: CAROLINA DEL TORO on 11/03/20 0815 Cefdinir (Cefdinir) 300 Mg Capsule, 300 MG PO BID Prescribed by: MATT LEON on 03/24/2252 Cetirizine HCl/Pseudoephedrine (Zyrtec-D Tablet) 5 Mg-120 Mg Tab.er.12h, 1 EACH PO BID Prescribed by: MATT LEON on 03/24/2252 Dibucaine (Dibucaine) 30 Gm Oint, 0 GM TOP UD PRN for PAIN- SEE INSTRUCTIONS Prescribed by: CAROLINA DEL TORO on 11/03/20 0815 Docusate Sodium (Dok) 100 Mg Capsule, 100 MG PO BID PRN for CONSTIPATION-1ST LINE Prescribed by: CAROLINA DEL TORO on 11/03/20 0815 Duloxetine HCl (Cymbalta) 60 Mg Capsule.dr, 60 MG PO DAILY, (Reported) Entered as Reported by: SHARON SANFORD on 10/23/20 0000 Ferrous Sulfate (Ferosul) 325 Mg Tablet, 325 MG PO DAILY Prescribed by: CAROLINA DEL TORO on 11/03/20 0815 Fluticasone Propionate (Flonase Allergy Relief) 50 Mcg/Actuation [place].susp, 2 SPRAY NS DAILY Prescribed by: MATT LEON on 03/24/22 0053 Ibuprofen (Ibu) 600 Mg Tablet, 600 MG PO Q6HR Prescribed by: CAROLINA DEL TORO on 11/03/20 0815 Mupirocin (Mupirocin) 2 % Oint...g., 22 GM TP BID Prescribed by: MATT LEON on 03/28/22 1811 Vit No.124/Iron/FA ( Vitamin Tablet) 1 Each Tablet, 1 EACH PO DAILY, (Reported) Entered as Reported by: SHARON SANFORD on 10/23/20 0000 Review of Systems Review of Systems Constitutional: see HPI, malaise EENTM: no symptoms reported Respiratory: no symptoms reported Cardiovascular: no symptoms reported Gastrointestinal: no symptoms reported Genitourinary: other (vaginal bleeding) : No LMP: Jun 05, 2022 Musculoskeletal: no symptoms reported Skin: no symptoms reported Psychiatric/Neurological: No Symptoms Reported Endocrine: Intolerance to Cold All Other Systemes Reviewed Negative Unless Noted: Yes Past Obodjop-Vomeqi-Wmbfmt Hx Patient Social History Tobacco Use?: No Substance use?: No Alcohol Use?: No Immunizations Up To Date Tetanus Booster (TDap): Unknown PED Vaccines UTD: Yes Influenza Vaccine Up-to-Date: Yes; Up-to-Date First/Initial COVID19 Vaccinat: UNKNOWN Second COVID19 Vaccination [place]: UNKNOWN Third COVID19 Vaccination Date: UNKNOWN Seasonal Allergies Seasonal Allergies: No Past Medical History Surgeries: Yes (L KNEE SCOPE X7; KIDNEY BX; LUMBAR PUNCTURE W/BLOOD PCH: R/CARPAL TUNNEL) Gallbladder, Orthopedic Respiratory: No Cardiac: Yes (HX OF SINUS TACH) Deep Vein Thrombosis Neurological: Yes Headaches /Migraines, Neuropathy Female Reproductive Disorders: Denies Genitourinary: Yes (RENAL INSUFFICIENCY) Gastrointestinal: No Musculoskeletal: Yes Degenerate Disk Disease, Chronic Back Pain Endocrine: Yes (FABRY'S DISEASE) HEENT: No Cancer: No Psychosocial: Yes Sleep Difficulties, Anxiety, Depression Integumentary: No Blood Disorders: No Family Medical History No Pertinent Family Hx Physical Exam Vital Signs Vital Signs - First Documented 06/07/22 14:50 Temp 36.1 Pulse 80 Resp 16 B/P (MAP) 125/84 (98) Pulse Ox 99 Capillary Refill : Height, Weight, BMI Height: 5'5.00" Weight: 159lbs. 0oz. 72.162789oq; 24.00 BMI Method:Stated General Appearance: WD/WN, no apparent distress HEENT: PERRL/EOMI, normal ENT inspection, pharynx normal Neck: supple Cardiovascular: regular rate, rhythm Respiratory: lungs clear, normal breath sounds, no respiratory distress, no a ccessory muscle use Gastrointestinal: normal bowel sounds, non tender, soft Extremities: normal range of motion, non-tender, normal inspection Neurologic/Psychiatric: alert, normal mood/affect, oriented x 3 Skin: normal color, warm/dry Progress/Results/Core Measures Suspected Sepsis SIRS Temperature: Pulse: 80 Respiratory Rate: 16 Laboratory Tests 06/07/22 15:52: White Blood Count 4.5 Blood Pressure 125 /84 Mean: 98 Laboratory Tests 06/07/22 15:52: Platelet Count 195 Results/Orders Lab Results Laboratory Tests Test 06/07/22 15:42 06/07/22 15:52 Range/Units Urine Color YELLOW Urine Clarity CLEAR Urine pH 6.0 5-9 Urine Specific [place] 1.010 L 1.016-1.022 Urine Protein NEGATIVE NEGATIVE Urine Glucose (UA) NEGATIVE NEGATIVE Urine Ketones NEGATIVE NEGATIVE Urine Nitrite NEGATIVE NEGATIVE Urine Bilirubin NEGATIVE NEGATIVE Urine Urobilinogen 0.2 < = 1.0 MG/DL Urine Leukocyte Esterase NEGATIVE NEGATIVE Urine RBC (Auto) 3+ H NEGATIVE Urine RBC 5-10 H /HPF Urine WBC NONE /HPF Urine Squamous Epithelial Cells 2-5 /HPF Urine Crystals NONE /LPF Urine Bacteria NEGATIVE /HPF Urine Casts NONE /LPF Urine Mucus NEGATIVE /LPF Urine Culture Indicated NO White Blood Count 4.5 4.3-11.0 10^3/uL Red Blood Count 4.50 3.80-5.11 10^6/uL Hemoglobin 13.7 11.5-16.0 g/dL Hematocrit 43 35-52 % Mean Corpuscular Volume 96 80-99 fL Mean Corpuscular Hemoglobin 30 25-34 pg Mean Corpuscular Hemoglobin Concent 32 32-36 g/dL Red Cell Distribution Width 13.7 10.0-14.5 % Platelet Count 195 130-400 10^3/uL Mean Platelet Volume 10.2 9.0-12.2 fL Immature Granulocyte % (Auto) 0 % Neutrophils (%) (Auto) 51 42-75 % Lymphocytes (%) (Auto) 34 12-44 % Monocytes (%) (Auto) 6 0-12 % Eosinophils (%) (Auto) 8 0-10 % Basophils (%) (Auto) 1 0-10 % Neutrophils # (Auto) 2.3 1.8-7.8 X 10^3 Lymphocytes # (Auto) 1.6 1.0-4.0 X 10^3 Monocytes # (Auto) 0.3 0.0-1.0 X 10^3 Eosinophils # (Auto) 0.4 H 0.0-0.3 10^3/uL Basophils # (Auto) 0.1 0.0-0.1 10^3/uL Immature Granulocyte # (Auto) 0.0 0.0-0.1 10^3/uL My Orders Orders - BEAU PALUMBO MD Ua Culture If Indicated (06/07/22 15:22) Urine Bedside (06/07/22 15:22) Cbc With Automated Diff (06/07/22 15:41) Vital Signs/I&O 06/07/22 14:50 Temp 36.1 Pulse 80 Resp 16 B/P (MAP) 125/84 (98) Pulse Ox 99 Capillary Refill : Blood Pressure Mean: 98 Progress Note : Time: 16:11 Progress Note Patient seen and evaluated concern for anemia as she has been more fatigued with her menstrual cycle over the last 48 hours. Evaluation today includes a physical exam, CBC, urinalysis and test. Her hemoglobin is 13.7. No concerning findings on the CBC, urinalysis. Her test is negative. Vital signs are stable. No concerns for infectious process. Consideration for blood chemistry however history and physical exam do not support the need. She takes multiple supplements. She is still breast-feeding a 2-year-old. Her 8-year-old has been battling COVID and pneumonia. Suspect that she is more likely fatigue due to several young children at home and 1 that is quite ill. Emotional support provided. All questions are sought and answered. Patient is stable for follow-up with her [facility] outpatient. Departure Impression Primary Impression: Fatigue Qualified Codes: R53.83 - Other fatigue Additional Impression: Normal menstrual period Disposition: HOME, SELF-CARE Condition: Stable Departure-Patient Inst. Decision time for Depature: 16:13 Referrals: CAROLINA DEL TORO,LOCAL PHYSICIAN (PCP) Primary Care Physician Patient Instructions: Fatigue (DC) Add. Discharge Instructions: Drink plenty of fluids to stay well-hydrated. Continue your supplements daily. Make sure you are getting enough protein and carbohydrates in your diet. Follow-up with Dr. Del Toro as scheduled. Return to the emergency department for any new, concerning or emergent complaints. Copy Copies To 1: CAROLINA DEL TORO KATHRYN M MD Jun 07, 2022 15:41
[2022-06-07 15:58] LABS: BILIRUBIN,URINE NEGATIVE (NEGATIVE); CLARITY,URINE CLEAR; COLOR,URINE YELLOW; GLUCOSE, URINE (UA) NEGATIVE (NEGATIVE); KETONES,URINE NEGATIVE (NEGATIVE); LEUKOCYTE ESTERASE ,URINE NEGATIVE (NEGATIVE); NITRITE,URINE NEGATIVE (NEGATIVE); PROTEIN,URINE NEGATIVE (NEGATIVE)
[2022-06-07 15:59] LABS: BASOPHILS # (AUTO) 0.1 10^3/uL (0.0-0.1); BASOPHILS % (AUTO) 1 % (0-10); EOSINOPHILS # (AUTO) 0.4 10^3/uL (0.0-0.3); EOSINOPHILS % (AUTO) 8 % (0-10); HEMATOCRIT 43 % (35-52); HEMOGLOBIN 13.7 g/dL (11.5-16.0); LYMPHOCYTES # (AUTO) 1.6 X 10^3 (1.0-4.0); LYMPHOCYTES % (AUTO) 34 % (12-44); MEAN CORPUSCULAR HEMOGLOBIN 30 pg (25-34); MEAN CORPUSCULAR HGB CONC 32 g/dL (32-36); MEAN CORPUSCULAR VOLUME 96 fL (80-99); MEAN PLATELET VOLUME 10.2 fL (9.0-12.2); MONOCYTES # (AUTO) 0.3 X 10^3 (0.0-1.0); MONOCYTES % (AUTO) 6 % (0-12); NEUTROPHILS # (AUTO) 2.3 X 10^3 (1.8-7.8); NEUTROPHILS % (AUTO) 51 % (42-75); PLATELET COUNT 195 10^3/uL (130-400); WHITE BLOOD COUNT 4.5 10^3/uL (4.3-11.0)
[2022-06-07 16:06] LABS: BACTERIA,URINE NEGATIVE /HPF
[2022-06-07 16:17] VITALS: BP 102/75
== END 2022-06-07 16:17 | disposition home or self-care (01) ==
LOC: EDUNIT# 14:42 → ER 14:43
DX: R53.83 Other fatigue (principal); Z32.02 Encounter for pregnancy test, result negative
CPT/HCPCS: 36415; 81000; 84703; 85025

== ENCOUNTER 2022-08-13 02:59 | Emergency (ER) | payer BC ==
[~2022-08-13] VITALS: Ht 165.1 cm; Wt 61.2 kg
[2022-08-13 03:37] VITALS: BP 122/87
[2022-08-13] MEDS ORDERED: KETOROLAC 30 MG/ML VIAL IVP ONE (04:00)
[2022-08-13] MEDS ORDERED: PROMETHAZINE INJ 25 MG/ML (PHENERGAN) AMP IVP ONE (04:00)
[2022-08-13] MEDS ORDERED: LACTATED RINGERS 1,000 ML IV ONE (04:00)
[2022-08-13] MEDS ORDERED: diphenhydrAMINE 50 MG/ML INJ (BENADRYL) IVP ONE (04:00)
--- NOTE | 2022-08-13 04:07 | ED Headache ---
General Chief Complaint: Head/Cervical Problems Stated Complaint: MIGRAINE FOR 5 DAYS-NO RELIEF Nursing Triage Note: PT AMB TO TRIAGE W C/O MIGRAINE SX FRIDAY THAT IS WORSENING. PT REPORTS NAUSEA, DECREASED APPETITE, AND DIZZINESS W ROM OF HEAD. PT HAS TRIED BENADRYL, TYLENOL, IBU, COMPAZINE. A&OX4, PT CONCERNED SHE NEEDS IV FLUIDS. Source: patient Exam Limitations: no limitations History of Present Illness Date Seen by Provider: Aug 13, 2022 Time Seen by Provider: 03:50 Allergies and Home Medications Allergies Coded Allergies: Penicillins (Verified Allergy, Unknown, 08/13/22) hydrocodone (Verified Allergy, Unknown, 09/23/17) potassium chloride (Verified Allergy, Unknown, 08/13/22) sulfamethoxazole (Verified Allergy, Unknown, 09/23/17) trimethoprim (Verified Allergy, Unknown, 09/23/17) Patient Home Medication List Amoxicillin/Potassium Clav (Amox Tr-K Clv 875-125 mg Tab) 875 Mg-125 Mg Tablet, 1 EACH PO BID Prescribed by: MATT LEON on 03/28/221810 Benzocaine/Menthol (Dermoplast Pain Relieving [place]) 78 Gm Aerosol, 56 EA TP UD PRN for PAIN- SEE INSTRUCTIONS Prescribed by: CAROLINA ARAYA on 11/03/20814 Cefdinir (Cefdinir) 300 Mg Capsule, 300 MG PO BID Prescribed by: MATT LEON on 03/24/2252 Cetirizine HCl/Pseudoephedrine (Zyrtec-D Tablet) 5 Mg-120 Mg Tab.er.12h, 1 EACH PO BID Prescribed by: MATT LEON on 03/24/2252 Dibucaine (Dibucaine) 30 Gm Oint, 0 GM TOP UD PRN for PAIN- SEE INSTRUCTIONS Prescribed by: CAROLINA ARAYA on 11/03/20814 Docusate Sodium (Dok) 100 Mg Capsule, 100 MG PO BID PRN for CONSTIPATION-1ST LINE Prescribed by: CAROLINA ARAYA on 11/03/20814 Duloxetine HCl (Cymbalta) 60 Mg Capsule.dr, 60 MG PO DAILY, (Reported) Entered as Reported by: SHARON SANFORD on 10/23/20 0000 Ferrous Sulfate (Ferosul) 325 Mg Tablet, 325 MG PO DAILY Prescribed by: CAROLINA ARAYA on 11/03/20 0815 Fluticasone Propionate (Flonase Allergy Relief) 50 Mcg/Actuation [place].susp, 2 SPRAY NS DAILY Prescribed by: MATT LEON on 03/24/22 0053 Ibuprofen (Ibu) 600 Mg Tablet, 600 MG PO Q6HR Prescribed by: CAROLINA ARAYA on 11/03/20 0815 Mupirocin (Mupirocin) 2 % Oint...g., 22 GM TP BID Prescribed by: MATT LEON on 03/28/22 1811 Vit No.124/Iron/FA ( Vitamin Tablet) 1 Each Tablet, 1 EACH PO DAILY, (Reported) Entered as Reported by: SHARON SANFORD on 10/23/20 0000 Past Axkqbzc-Pnhlrr-Keizbb Hx Patient Social History Tobacco Use?: No Use of E-Cig and/or Vaping dev: No Substance use?: No Alcohol Use?: No Immunizations Up To Date Tetanus Booster (TDap): Unknown PED Vaccines UTD: Yes Influenza Vaccine Up-to-Date: Yes; Up-to-Date First/Initial COVID19 Vaccinat: 2020 Second COVID19 Vaccination Rodrigo: 2020 Third COVID19 Vaccination Date: 2021 COVID19 Vaccine Manager Inpatient: MODERNA X3 Seasonal Allergies Seasonal Allergies: No Past Medical History Surgeries: Yes (L KNEE SCOPE X7; KIDNEY BX; LUMBAR PUNCTURE W/BLOOD PCH: R/CARPAL TUNNEL) Gallbladder, Orthopedic Respiratory: No Cardiac: Yes (HX OF SINUS TACH) Deep Vein Thrombosis Neurological: Yes Headaches /Migraines, Neuropathy Female Reproductive Disorders: Denies Genitourinary: Yes (RENAL INSUFFICIENCY) Gastrointestinal: No Musculoskeletal: Yes Degenerate Disk Disease, Chronic Back Pain Endocrine: Yes (FABRY'S DISEASE) HEENT: No Cancer: No Psychosocial: Yes Sleep Difficulties, Anxiety, Depression Integumentary: No Blood Disorders: No Family Medical History No Pertinent Family Hx Physical Exam Vital Signs Vital Signs - First Documented 08/13/22 03:37 Temp 37.0 Pulse 113 Resp 18 B/P (MAP) 122/87 (99) Pulse Ox 99 O2 Delivery Room Air Capillary Refill : Less Than 3 Seconds Height, Weight, BMI Height: 5'5.00" Weight: 159lbs. 0oz. 72.655745xf; 22.00 BMI Method:Stated Progress/Results/Core Measures Results/Orders Lab Results Laboratory Tests Test 08/13/22 04:17 Range/Units White Blood Count 5.7 4.3-11.0 10^3/uL Red Blood Count 4.52 3.80-5.11 10^6/uL Hemoglobin 14.0 11.5-16.0 g/dL Hematocrit 42 35-52 % Mean Corpuscular Volume 93 80-99 fL Mean Corpuscular Hemoglobin 31 25-34 pg Mean Corpuscular Hemoglobin Concent 33 32-36 g/dL Red Cell Distribution Width 12.7 10.0-14.5 % Platelet Count 217 130-400 10^3/uL Mean Platelet Volume 11.0 9.0-12.2 fL Immature Granulocyte % (Auto) 0 % Neutrophils (%) (Auto) 53 42-75 % Lymphocytes (%) (Auto) 38 12-44 % Monocytes (%) (Auto) 7 0-12 % Eosinophils (%) (Auto) 1 0-10 % Basophils (%) (Auto) 1 0-10 % Neutrophils # (Auto) 3.0 1.8-7.8 10^3/uL Lymphocytes # (Auto) 2.2 1.0-4.0 10^3/uL Monocytes # (Auto) 0.4 0.0-1.0 10^3/uL Eosinophils # (Auto) 0.1 0.0-0.3 10^3/uL Basophils # (Auto) 0.1 0.0-0.1 10^3/uL Immature Granulocyte # (Auto) 0.0 0.0-0.1 10^3/uL Sodium Level 140 135-145 MMOL/L Potassium Level 4.1 3.6-5.0 MMOL/L Chloride Level 107 98-107 MMOL/L Carbon Dioxide Level 24 21-32 MMOL/L Anion Gap 9 5-14 MMOL/L Blood Urea Nitrogen 12 7-18 MG/DL Creatinine 0.95 0.60-1.30 MG/DL Estimat Glomerular Filtration Rate 83 BUN/Creatinine Ratio 13 Glucose Level 124 H 70-105 MG/DL Calcium Level 9.0 8.5-10.1 MG/DL Magnesium Level 2.3 1.6-2.4 MG/DL My Orders Orders - ABRAM PHOENIX MD Ed Iv/Invasive Line Start (08/13/22 03:50) Lactated Ringers (Lr 1000 Ml Iv Solution (08/13/22 04:00) Basic Metabolic Panel (08/13/22 03:59) Cbc With Automated Diff (08/13/22 03:59) Magnesium (08/13/22 03:59) Ketorolac Injection (Toradol Injection) (08/13/22 04:00) Promethazine Injection (Phenergan Injec (08/13/22 04:00) Diphenhydramine Injection (Benadryl Inje (08/13/22 04:00) Dexamethasone Injection (Decadron Inje (08/13/22 04:00) Orphenadrine Inj (Ed Only) (Norflex Inje (08/13/22 05:15) Fentanyl Inj (Sublimaze Injection) (08/13/22 06:00) Medications Given in ED Current Medications Medications Dose Ordered Sig/Adele Route Start Time Stop Time Status Last Admin Dose Admin Dexamethasone Sodium Phosphate 4 mg ONCE ONCE IV 08/13/22 04:00 08/13/22 04:07 DC 08/13/22 04:21 4 MG Diphenhydramine HCl 25 mg ONCE ONCE IVP 08/13/22 04:00 08/13/22 04:07 DC 08/13/22 04:19 25 MG Ketorolac Tromethamine 30 mg ONCE ONCE IVP 08/13/22 04:00 08/13/22 04:07 DC 08/13/22 04:20 30 MG Lactated Ringer's 1,000 ml @ 0 mls/hr Q0M ONCE IV 08/13/22 04:00 08/13/22 04:01 DC 08/13/22 04:19 0 MLS/HR Orphenadrine Citrate 60 mg ONCE ONCE IV 08/13/22 05:15 08/13/22 05:16 DC 08/13/22 05:43 60 MG Promethazine HCl 25 mg ONCE ONCE IVP 08/13/22 04:00 08/13/22 04:07 DC 08/13/22 04:20 25 MG Vital Signs/I&O 08/13/22 03:37 Temp 37.0 Pulse 113 Resp 18 B/P (MAP) 122/87 (99) Pulse Ox 99 O2 Delivery Room Air Blood Pressure Mean: 99 Departure Impression Primary Impression: Migraine headache Qualified Codes: G43.909 - Migraine, unspecified, not intractable, without status migrainosus Disposition: 01 HOME, SELF-CARE Condition: Improved Departure-Patient Inst. Decision time for Depature: 06:00 Referrals: NO,LOCAL PHYSICIAN (PCP/Family) Primary Care Physician Patient Instructions: Migraines in Adults Add. Discharge Instructions: Drink plenty of clear liquids to stay well-hydrated. Return home and rest in a quiet, calm, dark environment for the remainder of the day as your medications set in. For primary pain control you may take ibuprofen up to 600 mg every 6 hours as needed. For pain not well controlled by ibuprofen, you may try Percocet as prescribed. Use the Zofran as prescribed for nausea and vomiting. Please contact your neurologist as soon as possible for further guidance. Consider discussing MRI of the cervical spine (neck) and brain for further evaluation of your headaches if deemed appropriate by your neurologist or primary care provider. Use cyclobenzaprine as prescribed for muscle tension in your neck. Consider gentle stretching and gentle heat on your neck muscles to help them relax. Return to care if you have worsening symptoms despite following these instructions. All discharge instructions reviewed with patient and/or family. Voiced understanding. Scripts Oxycodone HCl/Acetaminophen (Percocet 5-325 mg Tablet) 1 Each Tablet 1 TAB PO Q4H PRN for PAIN-BREAKTHROUGH MDD 6 TABS, #8 TAB Prov: ABRAM PHOENIX MD 08/13/22 Ondansetron (Ondansetron Odt) 4 Mg Tab.rapdis 4 MG SL Q4H PRN for NAUSEA/VOMITING, #10 TAB Prov: ABRAM PHOENIX MD 08/13/22 ABRAM PHOENIX MD Aug 13, 2022 04:07
[2022-08-13 04:36] LABS: BASOPHILS # (AUTO) 0.1 10^3/uL (0.0-0.1); BASOPHILS % (AUTO) 1 % (0-10); EOSINOPHILS # (AUTO) 0.1 10^3/uL (0.0-0.3); EOSINOPHILS % (AUTO) 1 % (0-10); HEMATOCRIT 42 % (35-52); LYMPHOCYTES # (AUTO) 2.2 10^3/uL (1.0-4.0); LYMPHOCYTES % (AUTO) 38 % (12-44); MEAN CORPUSCULAR HEMOGLOBIN 31 pg (25-34); MEAN CORPUSCULAR HGB CONC 33 g/dL (32-36); MEAN CORPUSCULAR VOLUME 93 fL (80-99); MONOCYTES # (AUTO) 0.4 10^3/uL (0.0-1.0); MONOCYTES % (AUTO) 7 % (0-12); NEUTROPHILS % (AUTO) 53 % (42-75); PLATELET COUNT 217 10^3/uL (130-400); WHITE BLOOD COUNT 5.7 10^3/uL (4.3-11.0)
[2022-08-13 04:43] LABS: POTASSIUM 4.1 MMOL/L (3.6-5.0)
[2022-08-13 04:49] LABS: CREATININE SERUM 0.95 MG/DL (0.60-1.30)
[2022-08-13 04:51] LABS: MAGNESIUM 2.3 MG/DL (1.6-2.4)
[2022-08-13] MEDS ORDERED: ORPHENADRINE 60 MG/2 ML (NORFLEX) AMP (ED ONLY) IV ONE (05:15)
[2022-08-13] MEDS ORDERED: fentaNYL INJ 100 MCG/2 ML AMP IVP ONE (06:00)
[2022-08-13] MEDS ORDERED: OXYC1TAB87 PO (06:03)
[2022-08-13] MEDS ORDERED: ONDA4TAB11 SL (06:03)
== END 2022-08-13 06:23 | disposition home or self-care (01) ==
LOC: EDUNIT# 02:59 → ER 03:03
DX: G43.909 Migraine, unspecified, not intractable, without status migrainosus (principal); Z88.5 Allergy status to narcotic agent
CPT/HCPCS: 36415; 80048; 83735; 85025; 99281

== ENCOUNTER 2022-08-14 22:51 | Emergency (ER) | payer BC ==
[~2022-08-14] VITALS: Ht 165 cm; Wt 61.2 kg
[~2022-08-14 22:51] MED LIST changes: +ONDA4TAB11 SL; +OXYC1TAB87 PO
--- NOTE | 2022-08-14 23:29 | ED Headache ---
General Chief Complaint: Head/Cervical Problems Stated Complaint: MIGRAINE Source: patient Exam Limitations: no limitations History of Present Illness Date Seen by Provider: Aug 14, 2022 Time Seen by Provider: 23:14 Initial Comments 32-year-old female with history of migraines and "spinal headaches" presents to the emergency department for headache. She was seen here yesterday for the same. Symptoms started on Friday as her typical migraine at the base of her skull and then diffusely thereafter. It was associated with nausea and phono and photophobia. No vomiting. She had a work-up yesterday which was negative and given the myriad of medications which she states only helped her get a couple of hours of sleep. She fears this may be turning into "a spinal headache." She states she has a history of bone spurs and bulging disks which caused her "spinal headaches. "Her headache is when she lies flat, worse when she is up and about. No fevers chills. No neck stiffness. She does endorse an electric type sensation in her left inferior skull. She was previously on gabapentin prior to but has not taken this since that time. She was restarted on her Topamax recently and she was given Percocet upon discharge which she states is not helping. Allergies and Home Medications Allergies Coded Allergies: Penicillins (Verified Allergy, Unknown, 08/13/22) hydrocodone (Verified Allergy, Unknown, 09/23/17) potassium chloride (Verified Allergy, Unknown, 08/13/22) sulfamethoxazole (Verified Allergy, Unknown, 09/23/17) trimethoprim (Verified Allergy, Unknown, 09/23/17) Patient Home Medication List Home Medication List Reviewed: Yes Amoxicillin/Potassium Clav (Amox Tr-K Clv 875-125 mg Tab) 875 Mg-125 Mg Tablet, 1 EACH PO BID Prescribed by: MATT LEON on 03/28/22 181 Benzocaine/Menthol (Dermoplast Pain Relieving [place]) 78 Gm Aerosol, 56 EA TP UD PRN for PAIN- SEE INSTRUCTIONS Prescribed by: CAROLINA ARAYA on 11/03/20 0815 Cefdinir (Cefdinir) 300 Mg Capsule, 300 MG PO BID Prescribed by: MATT LEON on 03/24/22 0053 Cetirizine HCl/Pseudoephedrine (Zyrtec-D Tablet) 5 Mg-120 Mg Tab.er.12h, 1 EACH PO BID Prescribed by: MATT LEON on 03/24/22 005 Dibucaine (Dibucaine) 30 Gm Oint, 0 GM TOP UD PRN for PAIN- SEE INSTRUCTIONS Prescribed by: CAROLINA ARAYA on 11/03/20 08 Docusate Sodium (Dok) 100 Mg Capsule, 100 MG PO BID PRN for CONSTIPATION-1ST LINE Prescribed by: CAROLINA ARAYA on 11/03/20 08 Duloxetine HCl (Cymbalta) 60 Mg Capsule.dr, 60 MG PO DAILY, (Reported) Entered as Reported by: SHARON SANFORD on 10/23/20 0000 Ferrous Sulfate (Ferosul) 325 Mg Tablet, 325 MG PO DAILY Prescribed by: CAROLINA ARAYA on 11/03/20 08 Fluticasone Propionate (Flonase Allergy Relief) 50 Mcg/Actuation [place].susp, 2 SPRAY NS DAILY Prescribed by: MATT LEON on 03/24/2252 Ibuprofen (Ibu) 600 Mg Tablet, 600 MG PO Q6HR Prescribed by: CAROLINA ARAYA on 11/03/20 08 Mupirocin (Mupirocin) 2 % Oint...g., 22 GM TP BID Prescribed by: MATT LEON on 03/28/22 181 Ondansetron (Ondansetron Odt) 4 Mg Tab.rapdis, 4 MG SL Q4H PRN for NAUSEA/VOMITING Prescribed by: ABRAM BUSCH on 08/13/22 0603 Oxycodone HCl/Acetaminophen (Percocet 5-325 mg Tablet) 1 Each Tablet, 1 TAB PO Q4H PRN for PAIN-BREAKTHROUGH Prescribed by: ABRAM BUSCH on 08/13/22 0604 Vit No.124/Iron/FA ( Vitamin Tablet) 1 Each Tablet, 1 EACH PO DAILY, (Reported) Entered as Reported by: SHARON SANFORD on 10/23/20 0000 Review of Systems Review of Systems Constitutional: no symptoms reported Eyes: No Symptoms Reported Ears, Nose, Mouth, Throat: no symptoms reported Respiratory: no symptoms reported Cardiovascular: no symptoms reported Gastrointestinal: no symptoms reported Genitourinary: no symptoms reported Musculoskeletal: no symptoms reported Skin: no symptoms reported Psychiatric/Neurological: Headache Past Hzineey-Cehyqk-Cxscgd Hx Patient Social History Tobacco Use?: No Use of E-Cig and/or Vaping dev: No Substance use?: No Alcohol Use?: No Immunizations Up To Date Tetanus Booster (TDap): Unknown PED Vaccines UTD: Yes First/Initial COVID19 Vaccinat: 2020 Second COVID19 Vaccination Rodrigo: 2020 Third COVID19 Vaccination Date: 2021 Seasonal Allergies Seasonal Allergies: No Past Medical History Surgeries: Yes (L KNEE SCOPE X7; KIDNEY BX; LUMBAR PUNCTURE W/BLOOD PCH: R/CARPAL TUNNEL) Gallbladder, Orthopedic Respiratory: No Cardiac: Yes (HX OF SINUS TACH) Deep Vein Thrombosis Neurological: Yes Headaches /Migraines, Neuropathy Female Reproductive Disorders: Denies Genitourinary: Yes (RENAL INSUFFICIENCY) Gastrointestinal: No Musculoskeletal: Yes Degenerate Disk Disease, Chronic Back Pain Endocrine: Yes (FABRY'S DISEASE) HEENT: No Cancer: No Psychosocial: Yes Sleep Difficulties, Anxiety, Depression Integumentary: No Blood Disorders: No Family Medical History Reviewed Nursing Family Hx No Pertinent Family Hx Physical Exam Vital Signs Capillary Refill : Height, Weight, BMI Height: 5'5.00" Weight: 159lbs. 0oz. 72.720940pl; 22.00 BMI Method:Stated General Appearance: WD/WN, no apparent distress HEENT: PERRL/EOMI, normal ENT inspection, TMs normal, pharynx normal Neck: non-tender, full range of motion, supple, normal inspection Cardiovascular: regular rate, rhythm, no murmur Respiratory: chest non-tender, lungs clear, normal breath sounds, no respiratory distress, no accessory muscle use Gastrointestinal: normal bowel sounds, non tender, soft, no organomegaly Back: no CVA tenderness Extremities: normal range of motion, non-tender, normal inspection, normal capillary refill Psychiatric: alert, oriented x 3 [place] Nerves: normal hearing, normal speech Coordination/Gait: normal finger to nose Motor/Sensory: no motor deficit, no sensory deficit Skin: normal color, warm/dry Progress/Results/Core Measures Results/Orders My Orders Orders - RENEA HEATH DO Prochlorperazine Injection (Compazine In (08/14/22 23:30) Ketorolac Injection (Toradol Injection) (08/14/22 23:30) Diphenhydramine Tablet (Benadryl Tablet) (08/14/22 23:30) Departure Communication (Admissions) The patient is hemodynamically stable. She has no red flag symptoms that would warrant imaging at this time. Has history of chronic migraines and "spinal headaches." This is exact same as previous presentations. No fevers, neck stiffness or stigmata of meningitis. No trauma, hypertension to make me think of a brain bleed. No focal deficits to indicate a stroke. Provided with medications for pain and discharged in stable condition. Impression Primary Impression: Migraine headache Qualified Codes: G43.901 - Migraine, unspecified, not intractable, with status migrainosus Disposition: HOME, SELF-CARE Condition: Stable Departure-Patient Inst. Referrals: NO,LOCAL PHYSICIAN (PCP/Family) Primary Care Physician Patient Instructions: Migraines (DC) Add. Discharge Instructions: Continue home medications as previously prescribed. Continue to call your neurologist to see if they can get you in sooner. Return to the emergency department for any severe concerns. All discharge instructions reviewed with patient and/or family. Voiced understanding. RENEA HEATH DO Aug 14, 2022 23:29
[2022-08-14] MEDS ORDERED: PROCHLORPERAZINE 10 MG/2ML INJ (COMPAZINE) IM ONE (23:30)
[2022-08-14] MEDS ORDERED: diphenhydrAMINE 25 MG TAB (BENADRYL) PO ONE (23:30)
[2022-08-14] MEDS ORDERED: KETOROLAC 15 MG/ML VIAL IM ONE (23:30)
[2022-08-14 23:40] VITALS: BP 112/84
== END 2022-08-14 23:41 | disposition home or self-care (01) ==
LOC: EDUNIT# 22:51 → ER 22:52
DX: G43.909 Migraine, unspecified, not intractable, without status migrainosus (principal); Z79.83 Long term (current) use of bisphosphonates
CPT/HCPCS: 99284

== ENCOUNTER 2022-10-02 11:50 | Emergency (ER) | payer BC ==
[~2022-10-02] VITALS: Ht 165 cm; Wt 64.4 kg
--- NOTE | 2022-10-02 12:14 | ED Integumentary General ---
"General Chief Complaint: Allergic Reaction Stated Complaint: RASH | Nursing Triage Note: pt amb to triage with c/o rash all over body that started yesterday. pt has taken benadryl without relief. 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 Rash started yesterday afternoon. Started on her upper extremities. The rash has spread since last night. She reports extreme itching. Has been taking Benadryl without much improvement. Went to walk-in clinic yesterday as she was having sore throat and runny nose and had a negative COVID and strep swab. Patient was recommended to take Benadryl with no improvement. Red rash has spread. Denies of any chest pain, cough, vomiting or diarrhea. She states she had an oral dental surgery performed 1 week ago and had 3 teeth pulled on the right side of her mouth. Currently on clindamycin. She does follow-up with a [facility] specialist for her connective tissue disorder. She is not currently on any medication for this disorder. Patient denies fever, headache, dizziness, visual changes, ear pain, neck swelling, abdominal pain, dysuria, hematuria Allergies and Home Medications Allergies Coded Allergies: Penicillins (Verified Allergy, Unknown, 08/13/22) hydrocodone (Verified Allergy, Unknown, 09/23/17) potassium chloride (Verified Allergy, Unknown, 08/13/22) sulfamethoxazole (Verified Allergy, Unknown, 09/23/17) trimethoprim (Verified Allergy, Unknown, 09/23/17) Patient Home Medication List Home Medication List Reviewed: Yes Amoxicillin/Potassium Clav (Amox Tr-K Clv 875-125 mg Tab) 875 Mg-125 Mg Tablet, 1 EACH PO BID Prescribed by: MATT LEON on 03/28/22 181 Benzocaine/Menthol (Dermoplast Pain Relieving [place]) 78 Gm Aerosol, 56 EA TP UD PRN for PAIN- SEE INSTRUCTIONS Prescribed by: CAROLINA ARAYA on 11/03/20 0815 Cefdinir (Cefdinir) 300 Mg Capsule, 300 MG PO BID Prescribed by: MATT LEON on 9/18/22 0053 Cetirizine HCl/Pseudoephedrine (Zyrtec-D Tablet) 5 Mg-120 Mg Tab.er.12h, 1 EACH PO BID Prescribed by: MATT LEON on 03/24/2252 Dibucaine (Dibucaine) 30 Gm Oint, 0 GM TOP UD PRN for PAIN- SEE INSTRUCTIONS Prescribed by: CAROLINA ARAYA on 11/03/20814 Docusate Sodium (Dok) 100 Mg Capsule, 100 MG PO BID PRN for CONSTIPATION-1ST LINE Prescribed by: CAROLINA ARAYA on 11/03/20814 Duloxetine HCl (Cymbalta) 60 Mg Capsule.dr, 60 MG PO DAILY, (Reported) Entered as Reported by: SHARON SANFORD on 10/23/20 0000 Ferrous Sulfate (Ferosul) 325 Mg Tablet, 325 MG PO DAILY Prescribed by: CAROLINA ARAYA on 11/03/20814 Fluticasone Propionate (Flonase Allergy Relief) 50 Mcg/Actuation [place].susp, 2 SPRAY NS DAILY Prescribed by: MATT LEON on 03/24/2252 Hydroxyzine HCl (Hydroxyzine HCl) 25 Mg Tablet, 25 MG PO Q6H Prescribed by: ENDY JOSHI on 10/02/22 1257 Ibuprofen (Ibu) 600 Mg Tablet, 600 MG PO Q6HR Prescribed by: CAROLINA ARAYA on 11/03/20814 Mupirocin (Mupirocin) 2 % Oint...g., 22 GM TP BID Prescribed by: MATT LEON on 03/28/221810 Ondansetron (Ondansetron Odt) 4 Mg Tab.rapdis, 4 MG SL Q4H PRN for NAUSEA/VOMITING Prescribed by: ABRAM BUSCH on 08/13/22 0603 Oxycodone HCl/Acetaminophen (Percocet 5-325 mg Tablet) 1 Each Tablet, 1 TAB PO Q4H PRN for PAIN-BREAKTHROUGH Prescribed by: ABRAM BUSCH on 08/13/22 0604 Prednisone (Prednisone) 10 Mg Tab.ds.pk, 10 MG PO DAILY Prescribed by: ENDY JOSHI on 10/02/22 1257 Vit No.124/Iron/FA ( Vitamin Tablet) 1 Each Tablet, 1 EACH PO DAILY, (Reported) Entered as Reported by: SHARON SANFORD on 10/23/20 0000 Review of Systems Review of Systems Constitutional: No chills, No diaphoresis, No fever, No malaise EENTM: dental problems; No blurred vision, No double vision, No mouth pain, No mouth swelling, No throat pain, No throat swelling Respiratory: No cough, No short of breath Cardiovascular: No chest pain, No palpitations Gastrointestinal: No abdominal pain, No diarrhea, No nausea, No vomiting Genitourinary: No decreased output, No discharge Musculoskeletal: No back pain, No joint pain Skin: change in color, pruritus, rash All Other Systems Reviewed Negative Unless Noted: Yes Past Eszoqbl-Hwlqlw-Lxfudo Hx Patient Social History Tobacco Use?: No Use of E-Cig and/or Vaping dev: No Substance use?: No Alcohol Use?: No Pt feels they are or have been: No Immunizations Up To Date Tetanus Booster (TDap): Unknown PED Vaccines UTD: Yes Influenza Vaccine Up-to-Date: Yes; Up-to-Date First/Initial COVID19 Vaccinat: 2020 Second COVID19 Vaccination [place]: 2020 Third COVID19 Vaccination Date: 2021 Seasonal Allergies Seasonal Allergies: No Past Medical History Surgery/Hospitalization HX: ALFONZO, KNEE, CARPEL TUNNEL, HEADACHES, BULDGING DISC, BONE SPUR, NEUROPATHY, CONNECTIVE TISSUE DISORDER. Surgeries: Yes (L KNEE SCOPE X7; KIDNEY BX; LUMBAR PUNCTURE W/BLOOD PCH: R/CARPAL TUNNEL) Gallbladder, Orthopedic Respiratory: No Cardiac: Yes (HX OF SINUS TACH) Deep Vein Thrombosis Neurological: Yes Headaches /Migraines, Neuropathy Last Menstrual Period: Sep 09, 2022 Female Reproductive Disorders: Denies Genitourinary: Yes (RENAL INSUFFICIENCY) Gastrointestinal: No Musculoskeletal: Yes Degenerate Disk Disease, Chronic Back Pain Endocrine: Yes (FABRY'S DISEASE) HEENT: No Cancer: No Psychosocial: Yes Sleep Difficulties, Anxiety, Depression Integumentary: No Blood Disorders: No Family Medical History No Pertinent Family Hx Physical Exam Vital Signs Vital Signs - First Documented 10/02/22 11:58 Temp 36.9 Pulse 96 Resp 14 B/P (MAP) 116/79 (91) Capillary Refill : General Appearance: WD/WN, no apparent distress HEENT: PERRL/EOMI, normal ENT inspection, TMs normal, pharynx normal Neck: non-tender, full range of motion, supple Cardiovascular: regular rate, rhythm, no edema, no gallop, no JVD Respiratory: chest non-tender, lungs clear, normal breath sounds, no respiratory distress, no accessory muscle use Gastrointestinal: normal bowel sounds, non tender, soft, no organomegaly Back: normal inspection, no CVA tenderness Extremities: normal range of motion, non-tender Neurologic/Psychiatric: inspecting and testing lead hand II-XII nml as tested, no motor/sensory deficits, alert, normal mood/affect, oriented x 3 Skin: other (Diffuse erythematous papular edematous rash. No pustules, vesicles. No sloughing of the skin. No oral lesions) Progress/Results/Core Measures Results/Orders Lab Results Laboratory Tests Test 10/02/22 12:25 Range/Units White Blood Count 4.7 4.3-11.0 10^3/uL Red Blood Count 4.09 3.80-5.11 10^6/uL Hemoglobin 12.6 11.5-16.0 g/dL Hematocrit 39 35-52 % Mean Corpuscular Volume 94 80-99 fL Mean Corpuscular Hemoglobin 31 25-34 pg Mean Corpuscular Hemoglobin Concent 33 32-36 g/dL Red Cell Distribution Width 12.8 10.0-14.5 % Platelet Count 187 130-400 10^3/uL Mean Platelet Volume 9.9 9.0-12.2 fL Immature Granulocyte % (Auto) 0 % Neutrophils (%) (Auto) 68 42-75 % Lymphocytes (%) (Auto) 22 12-44 % Monocytes (%) (Auto) 7 0-12 % Eosinophils (%) (Auto) 2 0-10 % Basophils (%) (Auto) 1 0-10 % Neutrophils # (Auto) 3.2 1.8-7.8 10^3/uL Lymphocytes # (Auto) 1.0 1.0-4.0 10^3/uL Monocytes # (Auto) 0.3 0.0-1.0 10^3/uL Eosinophils # (Auto) 0.1 0.0-0.3 10^3/uL Basophils # (Auto) 0.1 0.0-0.1 10^3/uL Immature Granulocyte # (Auto) 0.0 0.0-0.1 10^3/uL Sodium Level 141 135-145 MMOL/L Potassium Level 3.8 3.6-5.0 MMOL/L Chloride Level 110 H 98-107 MMOL/L Carbon Dioxide Level 24 21-32 MMOL/L Anion Gap 7 5-14 MMOL/L Blood Urea Nitrogen 11 7-18 MG/DL Creatinine 0.86 0.60-1.30 MG/DL Estimat Glomerular Filtration Rate 93 BUN/Creatinine Ratio 13 Glucose Level 83 70-105 MG/DL Calcium Level 8.8 8.5-10.1 MG/DL My Orders Orders - TIA DUMONT Cbc With Automated Diff (10/02/22 12:09) Basic Metabolic Panel (10/02/22 12:09) Tryptase (10/02/22 12:09) Methylprednisolone Sod Succ (Solu-Medrol (10/02/22 12:15) Famotidine Tablet (Pepcid Tablet) (10/02/22 12:15) Diphenhydramine Tablet (Benadryl Tablet) (10/02/22 12:15) Medications Given in ED Current Medications Medications Dose Ordered Sig/Adele Route Start Time Stop Time Status Last Admin Dose Admin Diphenhydramine HCl 25 mg ONCE ONCE PO 10/02/22 12:15 10/02/22 12:16 DC 10/02/22 12:34 25 MG Famotidine 20 mg ONCE ONCE PO 10/02/22 12:15 10/02/22 12:16 DC 10/02/22 12:34 20 MG Methylprednisolone Sodium Succinate 80 mg ONCE ONCE IM 10/02/22 12:15 10/02/22 12:16 DC 10/02/22 12:34 80 MG Vital Signs/I&O 10/02/22 11:58 Temp 36.9 Pulse 96 Resp 14 B/P (MAP) 116/79 (91) Blood Pressure Mean: 91 Departure Communication (PCP) Patient is a 32-year-old female with a history of loeys rosaura syndrome presents ED with diffuse red itchy rash. Started yesterday. Only new change is started clindamycin a week ago secondary to a dental procedure. She states her dental pain has improved. She has 2 days worth of the antibiotics. She is not currently on any medication for her connective tissue disorder. Currently following up with [facility]. Reviewed previous ER visits, H&P, outpatient H&P, testing. Differential diagnosis today allergic reaction, viral exanthem, mast cell activation, anaphylaxis. She reports some sore throat and nasal congestion. Negative strep performed yesterday at the clinic and COVID swab. She states she gets tryptase lab work drawn frequently due to her mast cell disorder. Patient was recommended come to ED for lab work and further evaluation. On exam she has a erythematous edematous itchy rash. No pustules, vesicles. She was given IM Solu-Medrol 80 mg, Pepcid 20 mg, Benadryl 25 mg. Slight improvement of the rash. She has no shortness of breath, throat pain. Concerned that this is may be related to the clindamycin and recommend stopping the medication. Lab work for the tryptase will not return back until 1 or 2 days. 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 She does not appear to be having an anaphylactic reaction at this time. Appears to be more allergic action. Lab work was drawn secondary to her condition CBC, CMP which was otherwise unremarkable patient feeling much better at this time. Will discharge with taper prednisone, hydroxyzine for itching, Pepcid. Recommend follow-up your PCP in 2 to 3 days for reevaluation. If any worsening symptoms return back to ED.. Impression Primary Impression: Allergic reaction Disposition: 01 HOME, SELF-CARE Condition: Stable Departure-Patient Inst. Decision time for Depature: 12:56 Referrals: [facility] [place] [facility],LOCAL PHYSICIAN (PCP) Primary Care Physician Patient Instructions: Skin Rash (DC) Add. Discharge Instructions: Recommend taking Pepcid with your hydroxyzine for itching. If hydroxyzine is not working may switch with Benadryl 25 mg every 6 hours. Follow-up with lab work with your specialist at . If any worsening symptoms such as difficulty breathing, shortness of breath, worsening rash to return back to ED All discharge instructions reviewed with patient and/or family. Voiced understanding. Scripts Hydroxyzine HCl (Hydroxyzine HCl) 25 Mg Tablet 25 MG PO Q6H for Itching, #16 TAB Prov: TIA DUMONT 10/02/22 Prednisone (Prednisone) 10 Mg Tab.ds.pk 10 MG PO DAILY, #42 EA Take 6 tabs(60mg)daily,decrease by 1 tab(10mg)every other day. Prov: TIA DUMONT 10/02/22 TIA DUMONT Oct 02, 2022 12:14"
[2022-10-02] MEDS ORDERED: FAMOTIDINE 20 MG (PEPCID) TABLET PO ONE (12:15)
[2022-10-02] MEDS ORDERED: diphenhydrAMINE 25 MG TAB (BENADRYL) PO ONE (12:15)
[2022-10-02] MEDS ORDERED: methylPREDNISolone 40 MG/ML (Solu-MEDROL) VIAL IM ONE (12:15)
[2022-10-02 12:32] LABS: BASOPHILS # (AUTO) 0.1 10^3/uL (0.0-0.1); BASOPHILS % (AUTO) 1 % (0-10); EOSINOPHILS # (AUTO) 0.1 10^3/uL (0.0-0.3); EOSINOPHILS % (AUTO) 2 % (0-10); HEMATOCRIT 39 % (35-52); HEMOGLOBIN 12.6 g/dL (11.5-16.0); LYMPHOCYTES % (AUTO) 22 % (12-44); MEAN CORPUSCULAR HEMOGLOBIN 31 pg (25-34); MEAN CORPUSCULAR HGB CONC 33 g/dL (32-36); MEAN CORPUSCULAR VOLUME 94 fL (80-99); MEAN PLATELET VOLUME 9.9 fL (9.0-12.2); MONOCYTES # (AUTO) 0.3 10^3/uL (0.0-1.0); MONOCYTES % (AUTO) 7 % (0-12); NEUTROPHILS # (AUTO) 3.2 10^3/uL (1.8-7.8); NEUTROPHILS % (AUTO) 68 % (42-75); PLATELET COUNT 187 10^3/uL (130-400); WHITE BLOOD COUNT 4.7 10^3/uL (4.3-11.0)
[2022-10-02 12:43] LABS: POTASSIUM 3.8 MMOL/L (3.6-5.0)
[2022-10-02 12:44] LABS: CALCIUM 8.8 MG/DL (8.5-10.1)
[2022-10-02 12:49] LABS: CREATININE SERUM 0.86 MG/DL (0.60-1.30)
[2022-10-02] MEDS ORDERED: HYDR-700 PO (12:57)
[2022-10-02] MEDS ORDERED: PRED10TA22 PO (12:57)
[2022-10-02 13:08] VITALS: BP 103/74
== END 2022-10-02 13:09 | disposition home or self-care (01) ==
LOC: EDUNIT# 11:50 → ER 11:53
DX: T78.40XA Allergy, unspecified, initial encounter (principal); L53.9 Erythematous condition, unspecified; Z98.890 Other specified postprocedural states
CPT/HCPCS: 36415; 80048; 83520; 85025; 99284

== ENCOUNTER 2022-10-29 17:51 | Emergency (ER) | payer BC ==
[~2022-10-29] VITALS: Ht 165.1 cm; Wt 63.8 kg
[~2022-10-29 17:51] MED LIST changes: +HYDR-700 PO; +PRED10TA22 PO
[2022-10-29] MEDS ORDERED: LACTATED RINGERS 1,000 ML IV STA (19:32)
[2022-10-29] MEDS ORDERED: ONDANSETRON 4 MG/2 ML (SDV) Z0FRAN IVP ONE (19:45)
[2022-10-29 19:59] LABS: BASOPHILS # (AUTO) 0.1 10^3/uL (0.0-0.1); BASOPHILS % (AUTO) 1 % (0-10); EOSINOPHILS # (AUTO) 0.1 10^3/uL (0.0-0.3); EOSINOPHILS % (AUTO) 2 % (0-10); HEMATOCRIT 41 % (35-52); HEMOGLOBIN 13.4 g/dL (11.5-16.0); LYMPHOCYTES # (AUTO) 2.3 10^3/uL (1.0-4.0); LYMPHOCYTES % (AUTO) 45 % (12-44); MEAN CORPUSCULAR HEMOGLOBIN 31 pg (25-34); MEAN CORPUSCULAR HGB CONC 33 g/dL (32-36); MEAN CORPUSCULAR VOLUME 94 fL (80-99); MEAN PLATELET VOLUME 9.9 fL (9.0-12.2); MONOCYTES # (AUTO) 0.3 10^3/uL (0.0-1.0); MONOCYTES % (AUTO) 6 % (0-12); NEUTROPHILS # (AUTO) 2.4 10^3/uL (1.8-7.8); NEUTROPHILS % (AUTO) 46 % (42-75); PLATELET COUNT 209 10^3/uL (130-400); WHITE BLOOD COUNT 5.1 10^3/uL (4.3-11.0)
[2022-10-29 20:13] LABS: BILIRUBIN,URINE NEGATIVE (NEGATIVE); CLARITY,URINE CLEAR; COLOR,URINE YELLOW; GLUCOSE, URINE (UA) NEGATIVE (NEGATIVE); KETONES,URINE NEGATIVE (NEGATIVE); LEUKOCYTE ESTERASE ,URINE NEGATIVE (NEGATIVE); NITRITE,URINE NEGATIVE (NEGATIVE); PROTEIN,URINE NEGATIVE (NEGATIVE)
[2022-10-29 20:16] LABS: ERYTHROCYTE SEDIMENTATION RATE 4 MM/HR (0-20)
[2022-10-29 20:18] LABS: BACTERIA,URINE TRACE /HPF
[2022-10-29 20:28] LABS: ALBUMIN 4.3 GM/DL (3.2-4.5); BILIRUBIN,TOTAL 0.5 MG/DL (0.1-1.0); CALCIUM 8.9 MG/DL (8.5-10.1); CREATININE SERUM 1.04 MG/DL (0.60-1.30); POTASSIUM 4.2 MMOL/L (3.6-5.0); TOTAL PROTEIN 6.7 GM/DL (6.4-8.2)
[2022-10-29] MEDS ORDERED: NS 100 ML (IVPB) BAG IV ONE (20:30)
[2022-10-29] MEDS ORDERED: HOLD METFORMIN - RECEIVED CONTRAST 20 ML VIAL IV SCH (20:30)
[2022-10-29] MEDS ORDERED: IOHEXOL 350 MG/ML 100 ML (OMNIPAQUE 350) VIAL IV ONE (20:30)
--- NOTE | 2022-10-29 20:50 | ED Abdominal Pain ---
General Chief Complaint: Abdominal/GI Problems Stated Complaint: ABDOMINAL PAIN Nursing Triage Note: PT AMB TO ED BY POV WITH C/O RUQ PAIN. PT REPORTS PAIN BEGAN 3 DAYS AGO AND ONLY HAD PAIN AFTER EATING OR DRINKING. PAIN HAS PROGRESSIVELY GOTTEN WORSE, NOW CONSTANT AND "STABBING." PT HAS HAD 3 EPISODES OF EMESIS TODAY. Source of Information: Patient History of Present Illness Date Seen by Provider: Oct 29, 2022 Time Seen by Provider: 19:22 Initial Comments PT ARRIVES VIA POV FROM HOME C/O RUQ PAIN X 1 WEEK--PINPOINT AREA OF PAIN --STATES MOSTLY ONLY WITH EATING OR DRINKING ANYTHING, AND HAS PROGRESSIVELY GOTTEN WORSE TODAY SHE HAD NAUSEA AND VOMITED X 3--TOOK HER DAUGHTER'S ZOFRAN AT 1400 NO DIARRHEA, HAD CONSTIPATED BM YESTERDAY--HAS CHRONIC CONSTIPATION, DOES NOT TAKE ANY MEDICATION FOR IT. HAD FEVER OF 99.7 TODAY NO URINARY SYMPTOMS AND IS VOIDING NORMALLY. LAST ATE AT 10 AM TODAY--ATE BREAD AND DRANK COFFEE. HAS BEEN DRINKING FLUIDS DURING THE DAY. NO SICK CONTACTS OR SUSPICIOUS FOODS PT HAS HAD PRIOR CHOLECYSTECTOMY--STATES THESE SYMPTOMS ARE SIMILAR TO WHAT SHE HAD BEFORE SHE HAD HER GALLBLADDER REMOVED. LMP 40 DAYS AGO--HAD DEPO-PROVERA SHOT 40 DAYS AGO. PCP: GOES TO FOR PRIMARY CARE, [facility] Allergies and Home Medications Allergies Coded Allergies: clindamycin (Verified Allergy, Intermediate, HIVES, 10/29/22) Penicillins (Verified Allergy, Unknown, 08/13/22) hydrocodone (Verified Allergy, Unknown, 09/23/17) potassium chloride (Verified Allergy, Unknown, 08/13/22) sulfamethoxazole (Verified Allergy, Unknown, 09/23/17) trimethoprim (Verified Allergy, Unknown, 09/23/17) Patient Home Medication List Home Medication List Reviewed: Yes Amoxicillin/Potassium Clav (Amox Tr-K Clv 875-125 mg Tab) 875 Mg-125 Mg Tablet, 1 EACH PO BID Prescribed by: MATT LEON on 03/28/221810 Benzocaine/Menthol (Dermoplast Pain Relieving [place]) 78 Gm Aerosol, 56 EA TP UD PRN for PAIN- SEE INSTRUCTIONS Prescribed by: CAROLINA ARAYA on 11/03/20 0815 Cefdinir (Cefdinir) 300 Mg Capsule, 300 MG PO BID Prescribed by: MATT LEON on 03/24/2252 Cetirizine HCl/Pseudoephedrine (Zyrtec-D Tablet) 5 Mg-120 Mg Tab.er.12h, 1 EACH PO BID Prescribed by: MATT LEON on 03/24/2252 Dibucaine (Dibucaine) 30 Gm Oint, 0 GM TOP UD PRN for PAIN- SEE INSTRUCTIONS Prescribed by: CAROLINA ARAYA on 11/03/20814 Dicyclomine HCl (Dicyclomine HCl) 20 Mg Tablet, 20 MG PO Q6H Prescribed by: MATT LEON on 10/29/222141 Docusate Sodium (Dok) 100 Mg Capsule, 100 MG PO BID PRN for CONSTIPATION-1ST LINE Prescribed by: CAROLINA ARAYA on 11/03/20814 Duloxetine HCl (Cymbalta) 60 Mg Capsule.dr, 60 MG PO DAILY, (Reported) Entered as Reported by: SHARON SANFORD on 10/23/20 0000 Ferrous Sulfate (Ferosul) 325 Mg Tablet, 325 MG PO DAILY Prescribed by: CAROLINA ARAYA on 11/03/20814 Fluticasone Propionate (Flonase Allergy Relief) 50 Mcg/Actuation [place].susp, 2 SPRAY NS DAILY Prescribed by: MATT LEON on 03/24/2252 Hydroxyzine HCl (Hydroxyzine HCl) 25 Mg Tablet, 25 MG PO Q6H Prescribed by: ENDY JOSHI on 10/02/22 1257 Ibuprofen (Ibu) 600 Mg Tablet, 600 MG PO Q6HR Prescribed by: CAROLINA ARAYA on 11/03/20814 Mupirocin (Mupirocin) 2 % Oint...g., 22 GM TP BID Prescribed by: MATT LEON on 03/28/22 181 Ondansetron (Ondansetron Odt) 4 Mg Tab.rapdis, 4 MG SL Q4H PRN for NAUSEA/VOMIT ING Prescribed by: ABRAM BUSCH on 08/13/22 0603 Ondansetron (Ondansetron Odt) 8 Mg Tab.rapdis, 8 MG PO Q6H Prescribed by: MATT LEON on 10/29/222141 Oxycodone HCl/Acetaminophen (Percocet 5-325 mg Tablet) 1 Each Tablet, 1 TAB PO Q4H PRN for PAIN-BREAKTHROUGH Prescribed by: ABRAM BUSCH on 08/13/22 0604 Prednisone (Prednisone) 10 Mg Tab.ds.pk, 10 MG PO DAILY Prescribed by: ENDY JOSHI on 10/02/22 1257 Vit No.124/Iron/FA ( Vitamin Tablet) 1 Each Tablet, 1 EACH PO DAILY, (Reported) Entered as Reported by: SHARON SANFORD on 10/23/20 0000 Review of Systems Review of Systems Constitutional: see HPI, fever EENTM: No Symptoms Reported Respiratory: No Symptoms Reported Cardiovascular: No Symptoms Reported Gastrointestinal: See HPI, Abdominal Pain, Constipated, Nausea, Poor Appetite, Vomiting Genitourinary: No Symptoms Reported Musculoskeletal: no symptoms reported Skin: no symptoms reported Psychiatric/Neurological: No Symptoms Reported Endocrine: No Symptoms Reported Hematologic/Lymphatic: No Symptoms Reported Past Ldfuauz-Vkqcwq-Xljbos Hx Patient Social History Tobacco Use?: No Use of E-Cig and/or Vaping dev: No Substance use?: No Alcohol Use?: No Pt feels they are or have been: No Immunizations Up To Date Tetanus Booster (TDap): Unknown PED Vaccines UTD: Yes Influenza Vaccine Up-to-Date: Yes; Up-to-Date First/Initial COVID19 Vaccinat: 2020 Second COVID19 Vaccination Rodrigo: 2020 Third COVID19 Vaccination Date: 2021 Seasonal Allergies Seasonal Allergies: No Past Medical History Surgery/Hospitalization HX: ALFONZO, KNEE, CARPEL TUNNEL, HEADACHES, BULDGING DISC, BONE SPUR, NEUROPATHY, CONNECTIVE TISSUE DISORDER. Surgeries: Yes (L KNEE SCOPE X7; KIDNEY BX; LUMBAR PUNCTURE W/BLOOD PCH: R/CARPAL TUNNEL) Gallbladder, Orthopedic, Renal Respiratory: Yes Pulmonary Embolism Cardiac: Yes (HX OF SINUS TACH) Deep Vein Thrombosis Neurological: Yes Headaches /Migraines, Neuropathy Female Reproductive Disorders: Denies Genitourinary: Yes (RENAL INSUFFICIENCY) Gastrointestinal: Yes Chronic Constipation Musculoskeletal: Yes Degenerate Disk Disease, Chronic Back Pain Endocrine: Yes (FABRY'S DISEASE) HEENT: No Cancer: No Psychosocial: Yes Sleep Difficulties, Anxiety, Depression Integumentary: No Blood Disorders: Yes (DVT'S) Family Medical History No Pertinent Family Hx SOCIAL HISTORY: -DENIES SMOKING -DENIES ALCOHOL USE -DENIES DRUG USE PAST SURGICAL HISTORY: -LEFT KNEE SURGERIES X 7 -CHOLECYSTECTOMY 2014 -RIGHT CARPAL TUNNEL -KIDNEY BIOPSY -LUMBAR PUNCTURE WITH BLOOD PATCH. 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 -"CONNECTIVE TISSUE DISORDER" Physical Exam Vital Signs Vital Signs - First Documented 10/29/22 17:56 Temp 36.8 Pulse 98 Resp 18 B/P (MAP) 125/84 (98) Pulse Ox 98 O2 Delivery Room Air Capillary Refill : Less Than 3 Seconds Height/Weight/BMI Height: 5'5.00" Weight: 159lbs. 0oz. [id number]; 23.00 BMI Method:Stated General Appearance: WD/WN, no apparent distress, other (DOES NOT APPEAR ILL OR TO BE IN ANY DISCOMFORT OR DISTRESS. WALKS UPRIGHT AND MOVES WITHOUT DIFFICULTY) Respiratory: normal breath sounds, no respiratory distress, no accessory muscle use Cardiovascular: regular rate, rhythm, no murmur Gastrointestinal: normal bowel sounds, soft, no organomegaly, no pulsatile mass; No distended, No guarding, No rebound; tenderness (RUQ AND RLQ TENDERNESS. ); No hernia, No mass Extremities: normal inspection, normal capillary refill Back: no CVA tenderness Neurologic/Psychiatric: mental health practitioner II-XII nml as tested, no motor/sensory deficits, alert, normal mood/affect, oriented x 3 Skin: normal color, warm/dry; No rash Progress/Results/Core Measures Results/Orders Lab Results Laboratory Tests Test 10/29/22 19:50 10/29/22 19:55 Range/Units White Blood Count 5.1 4.3-11.0 10^3/uL Red Blood Count 4.35 3.80-5.11 10^6/uL Hemoglobin 13.4 11.5-16.0 g/dL Hematocrit 41 35-52 % Mean Corpuscular Volume 94 80-99 fL Mean Corpuscular Hemoglobin 31 25-34 pg Mean Corpuscular Hemoglobin Concent 33 32-36 g/dL Red Cell Distribution Width 13.2 10.0-14.5 % Platelet Count 209 130-400 10^3/uL Mean Platelet Volume 9.9 9.0-12.2 fL Immature Granulocyte % (Auto) 0 % Neutrophils (%) (Auto) 46 42-75 % Lymphocytes (%) (Auto) 45 H 12-44 % Monocytes (%) (Auto) 6 0-12 % Eosinophils (%) (Auto) 2 0-10 % Basophils (%) (Auto) 1 0-10 % Neutrophils # (Auto) 2.4 1.8-7.8 10^3/uL Lymphocytes # (Auto) 2.3 1.0-4.0 10^3/uL Monocytes # (Auto) 0.3 0.0-1.0 10^3/uL Eosinophils # (Auto) 0.1 0.0-0.3 10^3/uL Basophils # (Auto) 0.1 0.0-0.1 10^3/uL Immature Granulocyte # (Auto) 0.0 0.0-0.1 10^3/uL Erythrocyte Sedimentation Rate 4 0-20 MM/HR Sodium Level 141 135-145 MMOL/L Potassium Level 4.2 3.6-5.0 MMOL/L Chloride Level 107 98-107 MMOL/L Carbon Dioxide Level 25 21-32 MMOL/L Anion Gap 9 5-14 MMOL/L Blood Urea Nitrogen 10 7-18 MG/DL Creatinine 1.04 0.60-1.30 MG/DL Estimat Glomerular Filtration Rate 74 BUN/Creatinine Ratio 10 Glucose Level 87 70-105 MG/DL Calcium Level 8.9 8.5-10.1 MG/DL Corrected Calcium 8.7 8.5-10.1 MG/DL Total Bilirubin 0.5 0.1-1.0 MG/DL Aspartate Amino Transf (AST/SGOT) 17 5-34 U/L Alanine Aminotransferase (ALT/SGPT) 14 0-55 U/L Alkaline Phosphatase 63 40-136 U/L C-Reactive Protein High Sensitivity 0.15 0.00-0.50 MG/DL Total Protein 6.7 6.4-8.2 GM/DL Albumin 4.3 3.2-4.5 GM/DL Amylase Level 55 25-125 U/L Lipase 21 8-78 U/L Serum Test, Qualitative NEGATIVE NEGATIVE Urine Color YELLOW Urine Clarity CLEAR Urine pH 6.0 5-9 Urine Specific [place] 1.020 1.016-1.022 Urine Protein NEGATIVE NEGATIVE Urine Glucose (UA) NEGATIVE NEGATIVE Urine Ketones NEGATIVE NEGATIVE Urine Nitrite NEGATIVE NEGATIVE Urine Bilirubin NEGATIVE NEGATIVE Urine Urobilinogen 0.2 < = 1.0 MG/DL Urine Leukocyte Esterase NEGATIVE NEGATIVE Urine RBC (Auto) NEGATIVE NEGATIVE Urine RBC NONE /HPF Urine WBC NONE /HPF Urine Squamous Epithelial Cells 2-5 /HPF Urine Crystals NONE /LPF Urine Bacteria TRACE /HPF Urine Casts NONE /LPF Urine Mucus NEGATIVE /LPF Urine Culture Indicated NO My Orders Orders - MATT LEON DO Ed Iv/Invasive Line Start (10/29/22 19:32) Monitor-Rhythm Ecg Trace Only (10/29/22 19:32) Amylase (10/29/22 19:32) Cbc With Automated Diff (10/29/22 19:32) Comprehensive Metabolic Panel (10/29/22 19:32) Hs C Reactive Protein (10/29/22 19:32) Hcg,Qualitative Serum (10/29/22 19:32) Lipase (10/29/22 19:32) Ua Culture If Indicated (10/29/22 19:32) Erythrocyte Sedimentation Rate (10/29/22 19:32) Ondansetron Injection (Zofran Injectio (10/29/22 19:45) Lactated Ringers (Lr 1000 Ml Iv Solution (10/29/22 19:32) Ed Iv/Invasive Line Start (10/29/22 19:32) Ct Abd/Pelv W (Appendicitis) (10/29/22 20:15) Iohexol Injection (Omnipaque 350 Mg/Ml 1 (10/29/22 20:30) Received Contrast (Hold Metformin- Contr (10/29/22 20:30) Ns (Ivpb) (Sodium Chloride 0.9% Ivpb Bag (10/29/22 20:30) Medications Given in ED Current Medications Medications Dose Ordered Sig/Adele Route Start Time Stop Time Status Last Admin Dose Admin Iohexol 100 ml ONCE ONCE IV 10/29/22 20:30 10/29/22 20:31 DC 10/29/22 20:36 73 ML Ondansetron HCl 4 mg ONCE ONCE IVP 10/29/22 19:45 10/29/22 19:46 DC 10/29/22 19:49 4 MG Sodium Chloride 100 ml ONCE ONCE IV 10/29/22 20:30 10/29/22 20:31 DC 10/29/22 20:36 80 ML Vital Signs/I&O 10/29/22 10/29/22 17:56 21:50 Temp 36.8 Pulse 98 98 Resp 18 18 B/P (MAP) 125/84 (98) 99/73 Pulse Ox 98 98 O2 Delivery Room Air Room Air Blood Pressure Mean: 98 Progress Progress Note : Progress Note GIVEN: -IV FLUIDS -ZOFRAN PT STATES SHE FEELS MUCH BETTER AND HER SYMPTOMS ARE GONE AFTER IV FLUIDS AND ZOFRAN VITALS STABLE, AFEBRILE. NO DETERIORATION IN PT'S CONDITION DURING ER STAY PT SITTING UP AND READING A LARGE NOVEL/BOOK DURING ENTIRE ER STAY DISCUSSED TEST RESULTS, ANTICIPATED COURSE, SYMPTOMATIC TREATMENT, DIET, MEDICATIONS, NEED FOR FOLLOW UP AND RETURN PRECAUTIONS REVIEWED PRIOR RECORDS, ALL ER VISITS FOR VARIOUS COMPLAINTS, EXCEPT FOR ADMIT FOR OF CHILD. Diagnostic Imaging Comments CT ABDOMEN/PELVIS--PER RADIOLOGIST REPORT AT 2138 FINDINGS: Included portions of the lung bases are clear. CT ABDOMEN: Moderate air and stool is noted scattered throughout the colon. Normal appendix cannot be adequately identified, but there is no pericecal inflammation. Small bowel loops are non-dilated. The kidneys, adrenal glands, spleen, and pancreas have a normal CT appearance. There are small cystic appearing foci within the right lobe of the liver. Otherwise, the liver has an unremarkable CT appearance, as well. There is no loculated fluid collection, free fluid or free air within the abdomen. No abnormal mesenteric or retroperitoneal adenopathy is seen. Osseous structures show no acute abnormalities. CT PELVIS: The urinary bladder is unopacified and minimally distended. No calculi are seen within the urinary bladder. There is no loculated fluid collection, free fluid or free air within the abdomen. No abnormal mesenteric or retroperitoneal adenopathy is seen. Osseous structures show no acute abnormalities. IMPRESSION: 1. No acute abnormality is seen within the abdomen or pelvis. 2. Moderate colonic air and stool. Please correlate for constipation. Reviewed: Reviewed by Me Departure Impression Primary Impression: Abdominal pain Additional Impressions: Constipation Nausea and vomiting Disposition: 01 HOME, SELF-CARE Condition: Improved Departure-Patient Inst. Decision time for Depature: 21:38 Referrals: NO,LOCAL PHYSICIAN (PCP/Family) Primary Care Physician Patient Instructions: Abdominal Pain, Adult ED, Constipation, Adult ED, Nausea and Vomiting, Adult (DC) Add. Discharge Instructions: CLEAR LIQUIDS--WATER, BROTH, JELLO, GATORADE TOMORROW IF YOU ARE BETTER, ADD BRATS DIET TO CLEAR LIQUIDS--BANANAS, RICE, APPLESAUCE, TOAST, SALTINES BEGIN TAKING MIRALAX DAILY FOLLOW UP WITH YOUR DR IN 2-3 DAYS IF NO BETTER, RETURN TO ER IF WORSE All discharge instructions reviewed with patient and/or family. Voiced understanding. Scripts Dicyclomine HCl (Dicyclomine HCl) 20 Mg Tablet 20 MG PO Q6H for Abdominal Pain, #20 TAB Prov: MATT LEON DO 10/29/22 Ondansetron (Ondansetron Odt) 8 Mg Tab.rapdis 8 MG PO Q6H, #10 TAB Prov: MATT LEON DO 10/29/22 MATT LEON DO Oct 29, 2022 20:50
--- NOTE | 2022-10-29 21:24 | Diagnostic Imaging Report ---
PROCEDURE: CT abdomen and pelvis with contrast, rule out appendicitis. TECHNIQUE: Multiple contiguous axial images were obtained through the abdomen and pelvis after the administration of intravenous contrast. All CT scans use one or more of the following dose optimizing techniques: automated exposure control, MA and/or KvP adjustment based on patient size and exam type or iterative reconstruction. INDICATION: Right upper quadrant abdominal pain. COMPARISON: 09/27/2018. FINDINGS: Included portions of the lung bases are clear. CT ABDOMEN: Moderate air and stool is noted scattered throughout the colon. Normal appendix cannot be adequately identified, but there is no pericecal inflammation. Small bowel loops are non-dilated. The kidneys, adrenal glands, spleen, and pancreas have a normal CT appearance. There are small cystic appearing foci within the right lobe of the liver. Otherwise, the liver has an unremarkable CT appearance, as well. There is no loculated fluid collection, free fluid or free air within the abdomen. No abnormal mesenteric or retroperitoneal adenopathy is seen. Osseous structures show no acute abnormalities. CT PELVIS: The urinary bladder is unopacified and minimally distended. No calculi are seen within the urinary bladder. There is no loculated fluid collection, free fluid or free air within the abdomen. No abnormal mesenteric or retroperitoneal adenopathy is seen. Osseous structures show no acute abnormalities. IMPRESSION: 1. No acute abnormality is seen within the abdomen or pelvis. 2. Moderate colonic air and stool. Please correlate for constipation. Dictated by: Dictated on workstation # [id number]
[2022-10-29] MEDS ORDERED: ONDA8TAB13 PO (21:42)
[2022-10-29] MEDS ORDERED: DICY20TA PO (21:42)
[2022-10-29 21:50] VITALS: BP 99/73
== END 2022-10-29 21:50 | disposition home or self-care (01) ==
LOC: EDUNIT# 17:51 → ER 17:53
DX: R10.11 Right upper quadrant pain (principal); R10.31 Right lower quadrant pain; K59.00 Constipation, unspecified; R11.2 Nausea with vomiting, unspecified; Z90.49 Acquired absence of other specified parts of digestive tract
CPT/HCPCS: 36415; 74177; 80053; 81000; 82150; 83690; 84703; 85025; 85652; 86141